=== PATIENT | male | born 1980 | race Hispanic/Latino ===

== ENCOUNTER 2016-11-29 03:07 | Inpatient (IN) | payer OTHER ==
[2016-11-29] MEDS ORDERED: Iohexol 240 (50 ml) PO ONE (03:31)
[2016-11-29] MEDS ORDERED: Iohexol 240 (50 ml) ONE (03:32)
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
[2016-11-29 05:02] LABS: BASO % 0.3 % (0.0-2.0); EOS % 0.1 % (0.0-4.0); HEMATOCRIT 44.1 % (35.0-51.0); LYMPH # 3.8 K/uL (1.0-4.3); LYMPH % 25.1 % (20.0-40.0); MEAN CELL VOLUME 93.3 fl (80.0-94.0); MEAN CORPUSCULAR HEMOGLOBIN 31.9 pg (27.0-31.0); MEAN CORPUSCULAR HGB CONC 34.2 g/dL (33.0-37.0); MEAN PLATELET VOLUME 7.3 fl (7.2-11.7); MONO # 2.3 K/uL (0.0-0.8); NEUT # 9.1 K/uL (1.8-7.0); NEUT % 59.5 % (50.0-75.0); NRBC % 0.1 % (0.0-0.0); RED CELL DISTRIBUTION WIDTH 14.4 % (11.5-14.5); WHITE BLOOD COUNT 15.3 K/uL (4.8-10.8)
[2016-11-29 05:06] LABS: ALB/GLOB RATIO 1.2 (1.0-2.1); ALCOHOL SERUM 203 mg/dl (0-10); ALKALINE PHOSPHATASE 90 U/L (38-126); ALT/SGPT 187 U/L (21-72); AST/SGOT 190 U/L (17-59); BILIRUBIN,TOTAL 1.3 mg/dl (0.2-1.3); BLOOD UREA NITROGEN 18 mg/dl (9-20); CALCIUM 9.4 mg/dL (8.4-10.2); CARBON DIOXIDE 26 mmol/L (22-30); CHLORIDE 93 mmol/L (98-107); GFR AFRICAN-AMERICAN > 60; GLUCOSE,RANDOM 128 mg/dL (75-110); POTASSIUM 3.6 MMOL/L (3.6-5.0); SODIUM 136 mmol/l (132-148); TOTAL PROTEIN 8.3 G/DL (6.3-8.2)
[2016-11-29] MEDS ORDERED: Sodium Chloride 0.9% 50 ML IV ONE (05:18)
[2016-11-29] MEDS ORDERED: Iohexol 300 100 ML IJ ONE (05:18)
[2016-11-29 05:34] LABS: LIPASE 11324 U/L (23-300)
[2016-11-29] MEDS ORDERED: Lactated Ringer's 2,000 ML IV SCH ×2 (05:45)
[2016-11-29] MEDS ORDERED: HYDROmorphone 0.5 mg/0.5 ml ISec ONE (05:46)
--- NOTE | 2016-11-29 09:50 | CT ---
PROCEDURE: CT Abdomen and Pelvis with contrast HISTORY: abd pain COMPARISON: None. TECHNIQUE: Contrast dose: 100 cc of Omnipaque 300 Radiation dose: Total exam DLP = 1006 mGy-cm. This CT exam was performed using one or more of the following dose reduction techniques: Automated exposure control, adjustment of the mA and/or kV according to patient size, and/or use of iterative reconstruction technique. FINDINGS: LOWER THORAX: Small subcarinal lymph nodes.. LIVER: Diffuse fatty infiltration of the liver. GALLBLADDER AND BILE DUCTS: Unremarkable. PANCREAS: There is diffuse peripancreatic fluid and hypertrophy consistent with acute pancreatitis with fluid tracking along both pericolic gutters. There is questionable pancreatic necrosis of the head. SPLEEN: Unremarkable. ADRENALS: Unremarkable. No mass. KIDNEYS AND URETERS: Unremarkable. No hydronephrosis. No solid mass. VASCULATURE: Unremarkable. No aortic aneurysm. BOWEL: Unremarkable. No obstruction. No gross mural thickening. APPENDIX: Normal appendix. PERITONEUM: Unremarkable. No free fluid. No free air. LYMPH NODES: Unremarkable. No enlarged lymph nodes. BLADDER: Unremarkable. REPRODUCTIVE: Unremarkable. BONES: No acute fracture. OTHER FINDINGS: None. IMPRESSION: Findings consistent with acute pancreatitis. Possible underlying pancreatic necrosis in the head.
--- NOTE | 2016-11-29 12:23 | CP.PCM.CON ---
History of Present Illness - History of Present Illness History of Present Illness: 36 yo man w/ chronic lower back pain is admitted for acute pancreatitis. Patient is known to me from previous hospitalization, he normally sees a paintings conservator in [facility] and receives Dilaudid 4mg about 4 tablets per day. He developed abdominal pain after a weekend of drinking with friends. This is his first episode of pancreatitis. The pain is sharp, constant and in the jennifer-umbilical region. Since admission, he had been on Dilaudid IV. The most recent dosage was 2mg q4h prn, but the medication wears off before 4 hours. Past Patient History - Infectious Disease Hx of Infectious Diseases: None - Past Medical History & Family History Past Medical History?: Yes - Past Social History Smoking Status: Former Smoker - CARDIAC Hx Cardiac Disorders: Yes Hx Hypertension: Yes - PULMONARY Hx Respiratory Disorders: No - NEUROLOGICAL Hx Neurological Disorder: No - HEENT Hx HEENT Problems: No - RENAL Hx Chronic Kidney Disease: No - ENDOCRINE/METABOLIC Hx Endocrine Disorders: No - HEMATOLOGICAL/ONCOLOGICAL Hx Blood Disorders: No Hx Human Immunodeficiency Virus (HIV): No - INTEGUMENTARY Hx Dermatological Problems: No - MUSCULOSKELETAL/RHEUMATOLOGICAL Hx Arthritis: Yes Hx Back Pain: Yes Hx Falls: No Hx Herniated Disk: Yes Other/Comment: left great toe fx - GASTROINTESTINAL Hx Gastrointestinal Disorders: No - GENITOURINARY/GYNECOLOGICAL Hx Genitourinary Disorders: No - PSYCHIATRIC Hx Psychophysiologic Disorder: No Hx Substance Use: No - SURGICAL HISTORY Hx Surgeries: No - ANESTHESIA Hx Anesthesia: No Hx Anesthesia Reactions: No Hx Malignant Hyperthermia: No Meds Allergies/Adverse Reactions: Allergies Allergy/AdvReac Type Severity Reaction Status Date / Time No Known Allergies Allergy Verified 11/16/16 03:40 - Medications Medications: Current Medications Hydromorphone HCl (Dilaudid) 2 mg IVP Q4 PRN PRN Reason: Pain, severe (8-10) Last Admin: 11/29/16 10:20 Dose: 2 mg Lactated Ringer's (Lactated Ringer's) 2,000 mls @ 500 mls/hr IV .Q4H GARY Last Admin: 11/29/16 06:04 Dose: 500 mls/hr Physical Exam - Cardiovascular Exam Cardiovascular Exam: REGULAR RHYTHM - GI/Abdominal Exam GI & Abdominal Exam: Soft, Tenderness Results - Vital Signs Recent Vital Signs: Last Vital Signs Temp 99.4 F 11/29/16 08:40 Pulse 111 H 11/29/16 08:40 Resp 20 11/29/16 08:40 BP 164/98 H 11/29/16 08:40 Pulse Ox 98 11/29/16 08:40 - Labs Result Diagrams: 11/29/16 04:56 11/29/16 04:56 Assessment & Plan (1) Pancreatitis Assessment and Plan: 36 yo man w/ chronic lower back pain on chronic opioids is admitted for pancreatitis. - f/u GI recommendation - increase Dilaudid to 2mg q3h PRN IV Status: Acute
[2016-11-29] MEDS: Lactated Ringer's 1,000 ML IV SCH ×2 (13:20→19:45)
--- NOTE | 2016-11-29 16:08 | CARD ---
APPROVED REPORT EKG Measurement Heart [id number] <Conclusion> Normal sinus rhythm Normal ECG
[2016-11-29] MEDS: Multiple Vitamins Oral Solution PO SCH (16:22)
--- NOTE | 2016-11-29 19:09 | CP.PCM.HP ---
History of Present Illness - History of Present Illness History of Present Illness: 36 yo with hx of Chronic Alcoholism Relapsing Pancreatitis Chronic opiod use for back pain admitted for Abdominal pain Present on Admission - Present on Admission Any Indicators Present on Admission: No Past Patient History - Infectious Disease Hx of Infectious Diseases: None - Past Medical History & Family History Past Medical History?: Yes - Past Social History Smoking Status: Former Smoker - CARDIAC Hx Cardiac Disorders: Yes Hx Hypertension: Yes - PULMONARY Hx Respiratory Disorders: No - NEUROLOGICAL Hx Neurological Disorder: No - HEENT Hx HEENT Problems: No - RENAL Hx Chronic Kidney Disease: No - ENDOCRINE/METABOLIC Hx Endocrine Disorders: No - HEMATOLOGICAL/ONCOLOGICAL Hx Blood Disorders: No Hx Human Immunodeficiency Virus (HIV): No - INTEGUMENTARY Hx Dermatological Problems: No - MUSCULOSKELETAL/RHEUMATOLOGICAL Hx Arthritis: Yes Hx Back Pain: Yes Hx Falls: No Hx Herniated Disk: Yes Other/Comment: left great toe fx - GASTROINTESTINAL Hx Gastrointestinal Disorders: No - GENITOURINARY/GYNECOLOGICAL Hx Genitourinary Disorders: No - PSYCHIATRIC Hx Psychophysiologic Disorder: No Hx Substance Use: No - SURGICAL HISTORY Hx Surgeries: No - ANESTHESIA Hx Anesthesia: No Hx Anesthesia Reactions: No Hx Malignant Hyperthermia: No Meds Allergies/Adverse Reactions: Allergies Allergy/AdvReac Type Severity Reaction Status Date / Time No Known Allergies Allergy Verified 11/16/16 03:40 Physical Exam - Respiratory Exam Respiratory Exam: NORMAL BREATHING PATTERN - Cardiovascular Exam Cardiovascular Exam: REGULAR RHYTHM - GI/Abdominal Exam GI & Abdominal Exam: Normal Bowel Sounds Results - Vital Signs Recent Vital Signs: Last Vital Signs Temp 98.7 F 11/29/16 16:27 Pulse 108 H 11/29/16 16:27 Resp 20 11/29/16 16:27 BP 164/98 H 11/29/16 08:40 Pulse Ox 94 L 11/29/16 16:27 - Labs Result Diagrams: 11/29/16 04:56 11/29/16 04:56 Labs: Laboratory Results - last 24 hr 11/29/16 12:17 Urine Opiates Screen Positive H Urine Methadone Screen Negative Ur Barbiturates Screen Negative Ur Phencyclidine Scrn Negative Ur Amphetamines Screen Negative U Benzodiazepines Scrn Negative U Oth Cocaine Metabols Negative U Cannabinoids Screen Negative Assessment & Plan - Assessment and Plan (Free Text) Assessment: Chronic Relapsing Pancreatitis CT scan mass?? IVF GI consult Alcoholic withdrawal Librium Thiamine Folic acid Seizure precautions Psychiatry Chronic opiod use/ back pain Pain management - Date & Time Date: 11/29/16 Time: 22:22
[2016-11-30 07:12] LABS: ALB/GLOB RATIO 1.2 (1.0-2.1); ALKALINE PHOSPHATASE 78 U/L (38-126); ALT/SGPT 255 U/L (21-72); AST/SGOT 318 U/L (17-59); BILIRUBIN,TOTAL 7.1 mg/dl (0.2-1.3); BLOOD UREA NITROGEN 16 mg/dl (9-20); CALCIUM 8.3 mg/dL (8.4-10.2); CARBON DIOXIDE 25 mmol/L (22-30); CHLORIDE 96 mmol/L (98-107); GFR AFRICAN-AMERICAN > 60; GLUCOSE,RANDOM 125 mg/dL (75-110); POTASSIUM 3.4 MMOL/L (3.6-5.0); SODIUM 133 mmol/l (132-148); TOTAL PROTEIN 7.3 G/DL (6.3-8.2)
[2016-11-30] MEDS: Multiple Vitamins Oral Solution PO SCH (09:00)
[2016-11-30] MEDS: Lactated Ringer's 1,000 ML IV SCH ×2 (12:20→21:15)
[2016-11-30 19:47] LABS: HEMATOCRIT 46.3 % (35.0-51.0); LYMPH # 1.6 K/uL (1.0-4.3); LYMPH % 9.8 % (20.0-40.0); MEAN CELL VOLUME 93.2 fl (80.0-94.0); MEAN CORPUSCULAR HEMOGLOBIN 31.2 pg (27.0-31.0); MEAN CORPUSCULAR HGB CONC 33.5 g/dL (33.0-37.0); MEAN PLATELET VOLUME 8.3 fl (7.2-11.7); MONO # 1.5 K/uL (0.0-0.8); MONO % 9.4 % (0.0-10.0); NEUT % 80.8 % (50.0-75.0); NRBC % 0.1 % (0.0-0.0); PLATELET COUNT 126 K/uL (130-400); RED CELL DISTRIBUTION WIDTH 14.7 % (11.5-14.5); WHITE BLOOD COUNT 16.1 K/uL (4.8-10.8)
--- NOTE | 2016-11-30 20:51 | CP.PCM.PN ---
Subjective - Date & Time of Evaluation Date of Evaluation: 11/30/16 Time of Evaluation: 22:22 - Subjective Subjective: Less tremors Objective - Vital Signs/Intake and Output Vital Signs (last 24 hours): Temp Pulse Resp BP Pulse Ox 98.7 F 99 H 20 142/95 H 96 11/30/16 19:49 11/30/16 19:49 11/30/16 19:49 11/30/16 19:49 11/30/16 19:49 - Medications Medications: Current Medications Amlodipine Besylate (Norvasc) 10 mg PO DAILY [facility] Last Admin: 11/29/16 13:18 Dose: 10 mg Chlordiazepoxide (Librium) 25 mg PO Q6 [facility] Last Admin: 11/29/16 22:16 Dose: 25 mg Folic Acid (Folic Acid) 1 mg PO DAILY [facility] Last Admin: 11/30/16 08:49 Dose: 1 mg Hydromorphone HCl (Dilaudid) 2 mg IVP Q3 PRN PRN Reason: Pain, severe (8-10) Last Admin: 11/29/16 22:03 Dose: 2 mg Lactated Ringer's (Lactated Ringer's) 1,000 mls @ 150 mls/hr IV .Q6H40M [facility] Last Admin: 11/29/16 19:45 Dose: Not Given Lisinopril (Zestril) 5 mg PO DAILY [facility] Last Admin: 11/29/16 16:22 Dose: 5 mg Multivitamins/Vitamin C (Multi-Delyn Liquid) 5 ml PO DAILY [facility] Last Admin: 11/29/16 16:22 Dose: 5 ml Thiamine HCl (Vitamin B1 Tab) 100 mg PO DAILY [facility] - Respiratory Exam Respiratory Exam: NORMAL BREATHING PATTERN - Cardiovascular Exam Cardiovascular Exam: REGULAR RHYTHM - GI/Abdominal Exam GI & Abdominal Exam: Normal Bowel Sounds Assessment and Plan - Assessment and Plan (Free Text) Assessment: Chronic Relapsing Pancreatitis CT scan mass?? IVF GI consult Alcoholic withdrawal Librium Thiamine Folic acid Seizure precautions Psychiatry Chronic opiod use/ back pain Pain management
--- NOTE | 2016-11-30 21:59 | CP.PCM.CON ---
History of Present Illness - History of Present Illness History of Present Illness: 36 yo male with h/o back pain requiring pqin management admitted with sudden onset intense abdominal pain. Patient had been drinking about 5 drinks of alcohol a day over the weekend. Review of Systems - Constitutional Constitutional: absent: Chills - EENT Eyes: absent: Blurred Vision Ears: absent: Decreased Hearing Nose/Mouth/Throat: absent: Epistaxis - Cardiovascular Cardiovascular: absent: Chest Pain - Respiratory Respiratory: absent: Dyspnea - Gastrointestinal Gastrointestinal: As Per HPI Past Patient History - Infectious Disease Hx of Infectious Diseases: None - Past Medical History & Family History Past Medical History?: Yes - Past Social History Smoking Status: Former Smoker - CARDIAC Hx Cardiac Disorders: Yes Hx Hypertension: Yes - PULMONARY Hx Respiratory Disorders: No - NEUROLOGICAL Hx Neurological Disorder: No - HEENT Hx HEENT Problems: No - RENAL Hx Chronic Kidney Disease: No - ENDOCRINE/METABOLIC Hx Endocrine Disorders: No - HEMATOLOGICAL/ONCOLOGICAL Hx Blood Disorders: No Hx Human Immunodeficiency Virus (HIV): No - INTEGUMENTARY Hx Dermatological Problems: No - MUSCULOSKELETAL/RHEUMATOLOGICAL Hx Arthritis: Yes Hx Back Pain: Yes Hx Falls: No Hx Herniated Disk: Yes Other/Comment: left great toe fx - GASTROINTESTINAL Hx Gastrointestinal Disorders: No - GENITOURINARY/GYNECOLOGICAL Hx Genitourinary Disorders: No - PSYCHIATRIC Hx Psychophysiologic Disorder: No Hx Substance Use: No - SURGICAL HISTORY Hx Surgeries: No - ANESTHESIA Hx Anesthesia: No Hx Anesthesia Reactions: No Hx Malignant Hyperthermia: No Meds Allergies/Adverse Reactions: Allergies Allergy/AdvReac Type Severity Reaction Status Date / Time No Known Allergies Allergy Verified 11/16/16 03:40 - Medications Medications: Current Medications Amlodipine Besylate (Norvasc) 10 mg PO DAILY [facility] Last Admin: 11/30/16 08:49 Dose: 10 mg Chlordiazepoxide (Librium) 25 mg PO Q6 [facility] Last Admin: 11/30/16 21:43 Dose: 25 mg Folic Acid (Folic Acid) 1 mg PO DAILY [facility] Last Admin: 11/30/16 08:49 Dose: 1 mg Hydromorphone HCl (Dilaudid 0.2 Mg/Ml Optics Technical Officer) 0 mg IV PRN PRN; Protocol PRN Reason: Pain, severe (8-10) Last Admin: 11/30/16 21:24 Dose: 6 mg Lactated Ringer's (Lactated Ringer's) 1,000 mls @ 150 mls/hr IV .Q6H40M [facility] Last Admin: 11/30/16 21:15 Dose: 150 mls/hr Lisinopril (Zestril) 5 mg PO DAILY [facility] Last Admin: 11/29/16 16:22 Dose: 5 mg Multivitamins/Vitamin C (Multi-Delyn Liquid) 5 ml PO DAILY [facility] Last Admin: 11/30/16 09:00 Dose: Not Given Thiamine HCl (Vitamin B1 Tab) 100 mg PO DAILY [facility] Physical Exam - Constitutional Appears: In Acute Distress - Head Exam Head Exam: NORMAL INSPECTION - Eye Exam Eye Exam: Normal appearance Pupil Exam: PERRL - ENT Exam ENT Exam: Mucous Membranes Moist - Neck Exam Neck exam: Positive for: Full Rom - Respiratory Exam Respiratory Exam: Clear to Auscultation Bilateral - Cardiovascular Exam Cardiovascular Exam: Tachycardia, REGULAR RHYTHM, +S1, +S2 - GI/Abdominal Exam GI & Abdominal Exam: Diminished Bowel Sounds, Distended Results - Vital Signs Recent Vital Signs: Last Vital Signs Temp 98.7 F 11/30/16 19:49 Pulse 99 H 11/30/16 19:49 Resp 20 11/30/16 19:49 BP 142/95 H 11/30/16 19:49 Pulse Ox 96 11/30/16 19:49 - Labs Result Diagrams: 11/29/16 04:56 11/30/16 04:00 Labs: Laboratory Results - last 24 hr 11/30/16 04:00 Sodium 133 Potassium 3.4 L Chloride 96 L Carbon Dioxide 25 Anion Gap 15 BUN 16 Creatinine 0.7 L Est GFR ( Amer) > 60 Est GFR (Non-Af Amer) > 60 Random Glucose 125 H Calcium 8.3 L Total Bilirubin 7.1 H AST 318 H D ALT 255 H D Alkaline Phosphatase 78 Total Protein 7.3 Albumin 3.9 Globulin 3.4 Albumin/Globulin Ratio 1.2 Assessment & Plan (1) Pancreatitis Assessment and Plan: Patient with pancreatitis due to alcohol. IV fluids and adequate analgesia. Follow labs and clinically. Status: Acute
--- NOTE | 2016-11-30 22:11 | CP.PCM.PN ---
Subjective - Date & Time of Evaluation Date of Evaluation: 11/30/16 Time of Evaluation: 15:00 - Subjective Subjective: Patient still in pain but he states it is slightly better today.On IV dilaudid Objective - Vital Signs/Intake and Output Vital Signs (last 24 hours): Temp Pulse Resp BP Pulse Ox 98.7 F 99 H 20 142/95 H 96 11/30/16 19:49 11/30/16 19:49 11/30/16 19:49 11/30/16 19:49 11/30/16 19:49 - Medications Medications: Current Medications Amlodipine Besylate (Norvasc) 10 mg PO DAILY [facility] Last Admin: 11/30/16 08:49 Dose: 10 mg Chlordiazepoxide (Librium) 25 mg PO Q6 [facility] Last Admin: 11/30/16 21:43 Dose: 25 mg Folic Acid (Folic Acid) 1 mg PO DAILY [facility] Last Admin: 11/30/16 08:49 Dose: 1 mg Hydromorphone HCl (Dilaudid 0.2 Mg/Ml Investment Representative) 0 mg IV PRN PRN; Protocol PRN Reason: Pain, severe (8-10) Last Admin: 11/30/16 21:24 Dose: 6 mg Lactated Ringer's (Lactated Ringer's) 1,000 mls @ 150 mls/hr IV .Q6H40M [facility] Last Admin: 11/30/16 21:15 Dose: 150 mls/hr Lisinopril (Zestril) 5 mg PO DAILY [facility] Last Admin: 11/29/16 16:22 Dose: 5 mg Multivitamins/Vitamin C (Multi-Delyn Liquid) 5 ml PO DAILY [facility] Last Admin: 11/30/16 09:00 Dose: Not Given Thiamine HCl (Vitamin B1 Tab) 100 mg PO DAILY [facility] - Labs Labs: 11/30/16 04:00 - Head Exam Head Exam: ATRAUMATIC - Eye Exam Eye Exam: Normal appearance - ENT Exam ENT Exam: Mucous Membranes Moist - Respiratory Exam Respiratory Exam: Clear to Ausculation Bilateral - Cardiovascular Exam Cardiovascular Exam: REGULAR RHYTHM - GI/Abdominal Exam GI & Abdominal Exam: Distended, Soft, Tenderness, Diminished Bowel Sounds Assessment and Plan (1) Pancreatitis Assessment & Plan: No fever though he is tachycardic . Bili is up but other LFTs are normal. Continue IV fluids and analgesia. Follow labs. Maintain NPO. Status: Acute
[2016-12-01] MEDS: Lactated Ringer's 1,000 ML IV SCH ×2 (04:25→11:30)
[2016-12-01] MEDS: Multiple Vitamins Oral Solution PO SCH (09:37)
[2016-12-01 11:01] LABS: URINE BILIRUBIN NEGATIVE (NEGATIVE); URINE COLOR STRAW (YELLOW); URINE GLUCOSE (UA) NEGATIVE (Normal); URINE KETONE 20 mg/dL (NEGATIVE)
[2016-12-01 11:02] LABS: URINE BLOOD SMALL (NEGATIVE); URINE LEUKOCYTE ESTERASE NEGATIVE Leu/uL (Negative); URINE PROTEIN 100 mg/dL (NEGATIVE); WBC URINE 2 /hpf (0-5)
[2016-12-01 12:45] LABS: HEMATOCRIT 36.5 % (35.0-51.0); MEAN CELL VOLUME 92.7 fl (80.0-94.0); MEAN CORPUSCULAR HEMOGLOBIN 32.3 pg (27.0-31.0); MEAN CORPUSCULAR HGB CONC 34.8 g/dL (33.0-37.0); RED CELL DISTRIBUTION WIDTH 14.5 % (11.5-14.5); WHITE BLOOD COUNT 10.8 K/uL (4.8-10.8)
[2016-12-01 13:09] LABS: ALB/GLOB RATIO 1.1 (1.0-2.1); ALKALINE PHOSPHATASE 71 U/L (38-126); ALT/SGPT 127 U/L (21-72); AMYLASE 263 U/L (30-110); AST/SGOT 103 U/L (17-59); BILIRUBIN,TOTAL 3.1 mg/dl (0.2-1.3); BLOOD UREA NITROGEN 17 mg/dl (9-20); CALCIUM 8.1 mg/dL (8.4-10.2); CARBON DIOXIDE 27 mmol/L (22-30); CHLORIDE 94 mmol/L (98-107); GFR AFRICAN-AMERICAN > 60; GLUCOSE,RANDOM 94 mg/dL (75-110); LIPASE 1012 U/L (23-300); POTASSIUM 3.5 MMOL/L (3.6-5.0); SODIUM 133 mmol/l (132-148); TOTAL PROTEIN 7.1 G/DL (6.3-8.2)
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
--- NOTE | 2016-12-01 13:43 | CP.PCM.PN ---
Subjective - Date & Time of Evaluation Date of Evaluation: 12/01/16 Time of Evaluation: 13:00 - Subjective Subjective: 36 yo man w/ chronic pain admitted for pancreatitis. 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 Since then he has required about 6mg of Dilaudid every 4 hours. He denies side effects from that regimen. Enzymes has been trending down. His abdominal pain is still present, but slightly better compared to before. Objective - Vital Signs/Intake and Output Vital Signs (last 24 hours): Temp Pulse Resp BP Pulse Ox 97.8 F 100 H 18 129/83 94 L 12/01/16 12:00 12/01/16 12:00 12/01/16 12:00 12/01/16 12:00 12/01/16 12:00 - Medications Medications: Current Medications Amlodipine Besylate (Norvasc) 10 mg PO DAILY [facility] Last Admin: 12/01/16 09:38 Dose: 10 mg Chlordiazepoxide (Librium) 25 mg PO Q6 [facility] Last Admin: 12/01/16 09:44 Dose: 25 mg Folic Acid (Folic Acid) 1 mg PO DAILY [facility] Last Admin: 12/01/16 09:37 Dose: 1 mg Hydromorphone HCl (Dilaudid 0.2 Mg/Ml Order Entry Clerk) 0 mg IV PRN PRN; Protocol PRN Reason: Pain, severe (8-10) Last Admin: 12/01/16 11:14 Dose: 6 mg Lactated Ringer's (Lactated Ringer's) 1,000 mls @ 150 mls/hr IV .Q6H40M [facility] Last Admin: 12/01/16 04:25 Dose: 150 mls/hr Lisinopril (Zestril) 5 mg PO DAILY [facility] Last Admin: 12/01/16 09:37 Dose: 5 mg Multivitamins/Vitamin C (Multi-Delyn Liquid) 5 ml PO DAILY [facility] Last Admin: 12/01/16 09:37 Dose: 5 ml Thiamine HCl (Vitamin B1 Tab) 100 mg PO DAILY [facility] Last Admin: 12/01/16 09:37 Dose: 100 mg - Labs Labs: 12/01/16 12:35 12/01/16 12:35 - Respiratory Exam Respiratory Exam: NORMAL BREATHING PATTERN - Cardiovascular Exam Cardiovascular Exam: REGULAR RHYTHM - GI/Abdominal Exam GI & Abdominal Exam: Tenderness Assessment and Plan (1) Pancreatitis Assessment & Plan: 36 yo man w/ pancreatitis 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 - continue Dilaudid COMPENSATION CONSULTING MANAGER for one more day, will wean down - can switch to Dilaudid 2mg IV q3h PRN tomorrow, patient was told of the pending change - patient to go home to own medication of Dilaudid 4mg PO Status: Acute
[2016-12-01 15:13] LABS: BASOPHIL 1 % (0-2); METAMYELOCYTE 1 % (0-0); NEUTROPHIL 81 % (42-75)
[2016-12-01 15:14] LABS: LARGE PLATELETS PRESENT
[2016-12-01 15:56] LABS: TOTAL CELLS COUNTED 100
--- NOTE | 2016-12-01 18:23 | CP.PCM.PN ---
Subjective - Date & Time of Evaluation Date of Evaluation: 12/01/16 Time of Evaluation: 22:22 - Subjective Subjective: Tremors decreased Enzymes improving Objective - Vital Signs/Intake and Output Vital Signs (last 24 hours): Temp Pulse Resp BP Pulse Ox 97.8 F 100 H 18 129/83 94 L 12/01/16 12:00 12/01/16 12:00 12/01/16 12:00 12/01/16 12:00 12/01/16 12:00 - Medications Medications: Current Medications Amlodipine Besylate (Norvasc) 10 mg PO DAILY [facility] Last Admin: 12/01/16 09:38 Dose: 10 mg Chlordiazepoxide (Librium) 25 mg PO Q6 [facility] Last Admin: 12/01/16 17:32 Dose: 25 mg Folic Acid (Folic Acid) 1 mg PO DAILY [facility] Last Admin: 12/01/16 09:37 Dose: 1 mg Hydromorphone HCl (Dilaudid 0.2 Mg/Ml [employer] Dealer) 0 mg IV PRN PRN; Protocol PRN Reason: Pain, severe (8-10) Last Admin: 12/01/16 17:27 Dose: 6 mg Lactated Ringer's (Lactated Ringer's) 1,000 mls @ 150 mls/hr IV .Q6H40M [facility] Last Admin: 12/01/16 11:30 Dose: 150 mls/hr Lisinopril (Zestril) 5 mg PO DAILY [facility] Last Admin: 12/01/16 09:37 Dose: 5 mg Multivitamins/Vitamin C (Multi-Delyn Liquid) 5 ml PO DAILY [facility] Last Admin: 12/01/16 09:37 Dose: 5 ml Thiamine HCl (Vitamin B1 Tab) 100 mg PO DAILY [facility] Last Admin: 12/01/16 09:37 Dose: 100 mg - Labs Labs: 12/01/16 12:35 12/01/16 12:35 - Respiratory Exam Respiratory Exam: NORMAL BREATHING PATTERN - Cardiovascular Exam Cardiovascular Exam: REGULAR RHYTHM - GI/Abdominal Exam GI & Abdominal Exam: Normal Bowel Sounds Assessment and Plan - Assessment and Plan (Free Text) Assessment: Chronic Relapsing Pancreatitis CT scan mass?? IVF GI consult Alcoholic withdrawal Librium Thiamine Folic acid Seizure precautions Psychiatry Chronic opiod use/ back pain Pain management
[2016-12-01 22:42] LABS: URINE BILIRUBIN NEGATIVE (NEGATIVE); URINE BLOOD NEGATIVE (NEGATIVE); URINE COLOR AMBER (YELLOW); URINE GLUCOSE (UA) NEG (Normal); URINE KETONE 20 mg/dL (NEGATIVE); URINE LEUKOCYTE ESTERASE NEG Leu/uL (Negative); URINE PROTEIN 100 mg/dL (NEGATIVE); URINE UROBILINOGEN 0.2-1.0 mg/dL (0.2-1.0); WBC URINE 1 /hpf (0-5)
[2016-12-02] MEDS: Piperacillin/Tazobact 3.375 GM in Sodium Chloride 0.9% 100 ML IVPB SCH ×3 (00:45→16:55)
[2016-12-02] MEDS: Lactated Ringer's 1,000 ML IV SCH ×3 (01:00→20:02)
[2016-12-02 08:50] LABS: HEMATOCRIT 36.8 % (35.0-51.0); MEAN CELL VOLUME 94.4 fl (80.0-94.0); MEAN CORPUSCULAR HEMOGLOBIN 32.1 pg (27.0-31.0); RED CELL DISTRIBUTION WIDTH 14.2 % (11.5-14.5); WHITE BLOOD COUNT 12.1 K/uL (4.8-10.8)
[2016-12-02] MEDS: Multiple Vitamins Oral Solution PO SCH ×2 (09:31→09:34)
--- NOTE | 2016-12-02 15:14 | CT ---
PROCEDURE: CT Abdomen and Pelvis without Oral or IV contrast. HISTORY: Abdominal distention COMPARISON: CT abdomen and pelvis with contrast performed 11/29/16 TECHNIQUE: Contiguous axial images of the abdomen and pelvis. No IV contrast administered. Coronal and Sagittal reformats generated and reviewed. Radiation dose: Total exam DLP = 1200.49 mGy-cm. This CT exam was performed using one or more of the following dose reduction techniques: Automated exposure control, adjustment of the mA and/or kV according to patient size, and/or use of iterative reconstruction technique. FINDINGS: There is limited evaluation of the solid organs without the administration of IV contrast. LOWER THORAX: Small bilateral pleural effusions and associated compressive consolidation. Pneumonia is not excluded. Small hiatal hernia/distal esophageal wall thickening. LIVER: Hepatic steatosis. Hypoattenuation of the liver compatible with hepatic steatosis. GALLBLADDER AND BILE DUCTS: Unremarkable unenhanced appearance. PANCREAS: Pancreatic prominence, likely edematous pancreas. Peripancreatic fluid. SPLEEN: Splenomegaly. ADRENALS: Unremarkable unenhanced appearance. KIDNEYS AND URETERS: No hydronephrosis or obstructing renal calculus. BLADDER: The urinary bladder appears unremarkable. REPRODUCTIVE: Unremarkable. APPENDIX: Visualized portions of the appendix appear within normal limits of caliber. BOWEL: The stomach is nondistended. Lack of oral contrast limits evaluation for bowel pathology. The bowel loops appear within normal limits of caliber without evidence of intestinal obstruction. Duodenal wall thickening; suspect infectious/inflammatory etiologies. PERITONEUM: Small abdominal and pelvic free fluid. No definite free air. LYMPH NODES: Sub cm prominent mesenteric and retroperitoneal lymph nodes, nonspecific. VASCULATURE: No aortic aneurysm. BONES: Degenerative changes. Schmorl's node, superior endplate our 5 OTHER FINDINGS: Tiny fat containing umbilical hernia. IMPRESSION: Pancreatic prominence, likely edematous pancreas. Peripancreatic fluid. Appearance compatible with acute pancreatitis. Hepatomegaly. Hepatic steatosis. Splenomegaly. Duodenal wall thickening; suspect infectious/inflammatory etiologies. Correlate clinically. Sub cm prominent mesenteric and retroperitoneal lymph nodes, nonspecific. Small bilateral pleural effusions and associated compressive consolidation. Pneumonia is not excluded. Small hiatal hernia/distal esophageal wall thickening. Additional findings as above.
--- NOTE | 2016-12-02 20:55 | CP.PCM.PN ---
Subjective - Date & Time of Evaluation Date of Evaluation: 12/02/16 Time of Evaluation: 22:22 - Subjective Subjective: Low grade temp? Objective - Vital Signs/Intake and Output Vital Signs (last 24 hours): Temp Pulse Resp BP Pulse Ox 100.5 F H 98 H 16 130/83 94 L 12/02/16 20:08 12/02/16 20:05 12/02/16 20:05 12/02/16 20:05 12/02/16 20:05 - Medications Medications: Current Medications Acetaminophen (Tylenol 325mg Tab) 650 mg PO Q6 PRN PRN Reason: Fever >100.4 F Last Admin: 12/02/16 20:08 Dose: 650 mg Amlodipine Besylate (Norvasc) 10 mg PO DAILY [facility] Last Admin: 12/02/16 09:30 Dose: 10 mg Chlordiazepoxide (Librium) 25 mg PO Q6 [facility] Last Admin: 12/02/16 16:55 Dose: 25 mg Folic Acid (Folic Acid) 1 mg PO DAILY [facility] Last Admin: 12/02/16 09:31 Dose: 1 mg Hydromorphone HCl (Dilaudid) 2 mg IVP Q3 PRN PRN Reason: severe pain 8-10 Last Admin: 12/02/16 20:00 Dose: 2 mg Lactated Ringer's (Lactated Ringer's) 1,000 mls @ 150 mls/hr IV .Q6H40M [facility] Last Admin: 12/02/16 20:02 Dose: 150 mls/hr Piperacillin Sod/Tazobactam (Sod 3.375 gm/ Sodium Chloride) 100 mls @ 100 mls/ hr IVPB Q8 [facility] Last Admin: 12/02/16 16:55 Dose: 100 mls/hr Lisinopril (Zestril) 5 mg PO DAILY [facility] Last Admin: 12/02/16 09:30 Dose: 5 mg Multivitamins/Vitamin C (Multi-Delyn Liquid) 5 ml PO DAILY [facility] Last Admin: 12/02/16 09:34 Dose: Not Given Thiamine HCl (Vitamin B1 Tab) 100 mg PO DAILY [facility] Last Admin: 12/02/16 09:30 Dose: 100 mg - Labs Labs: 12/02/16 08:30 12/01/16 12:35 - Respiratory Exam Respiratory Exam: NORMAL BREATHING PATTERN - Cardiovascular Exam Cardiovascular Exam: REGULAR RHYTHM - GI/Abdominal Exam GI & Abdominal Exam: Normal Bowel Sounds Assessment and Plan - Assessment and Plan (Free Text) Assessment: Low grade temp? Blood cs IV ABX ID consult Chronic Relapsing Pancreatitis CT scan mass?? IVF GI consult Alcoholic withdrawal Librium Thiamine Folic acid Seizure precautions Psychiatry Chronic opiod use/ back pain Pain management
--- NOTE | 2016-12-03 00:37 | CP.PCM.PN ---
Subjective - Date & Time of Evaluation Date of Evaluation: 12/02/16 Time of Evaluation: 23:30 - Subjective Subjective: Patient with pain but bearable Objective - Vital Signs/Intake and Output Vital Signs (last 24 hours): Temp Pulse Resp BP Pulse Ox 99.8 F H 84 20 136/77 97 12/02/16 23:45 12/02/16 23:45 12/02/16 23:45 12/02/16 23:45 12/02/16 23:45 - Medications Medications: Current Medications Acetaminophen (Tylenol 325mg Tab) 650 mg PO Q6 PRN PRN Reason: Fever >100.4 F Last Admin: 12/02/16 20:08 Dose: 650 mg Amlodipine Besylate (Norvasc) 10 mg PO DAILY [facility] Last Admin: 12/02/16 09:30 Dose: 10 mg Chlordiazepoxide (Librium) 25 mg PO Q6 [facility] Last Admin: 12/02/16 23:01 Dose: 25 mg Folic Acid (Folic Acid) 1 mg PO DAILY [facility] Last Admin: 12/02/16 09:31 Dose: 1 mg Hydromorphone HCl (Dilaudid) 2 mg IVP Q3 PRN PRN Reason: severe pain 8-10 Last Admin: 12/02/16 23:01 Dose: 2 mg Lactated Ringer's (Lactated Ringer's) 1,000 mls @ 150 mls/hr IV .Q6H40M [facility] Last Admin: 12/02/16 20:02 Dose: 150 mls/hr Piperacillin Sod/Tazobactam (Sod 3.375 gm/ Sodium Chloride) 100 mls @ 100 mls/ hr IVPB Q8 [facility] Last Admin: 12/02/16 16:55 Dose: 100 mls/hr Lisinopril (Zestril) 5 mg PO DAILY [facility] Last Admin: 12/02/16 09:30 Dose: 5 mg Multivitamins/Vitamin C (Multi-Delyn Liquid) 5 ml PO DAILY [facility] Last Admin: 12/02/16 09:34 Dose: Not Given Thiamine HCl (Vitamin B1 Tab) 100 mg PO DAILY [facility] Last Admin: 12/02/16 09:30 Dose: 100 mg - Labs Labs: 12/02/16 08:30 12/01/16 12:35 - Head Exam Head Exam: ATRAUMATIC - Eye Exam Eye Exam: Normal appearance - ENT Exam ENT Exam: Mucous Membranes Moist - Respiratory Exam Respiratory Exam: Clear to Ausculation Bilateral - Cardiovascular Exam Cardiovascular Exam: REGULAR RHYTHM - GI/Abdominal Exam GI & Abdominal Exam: Distended, Firm, Tenderness, Normal Bowel Sounds Additional comments: Generalozed modrate tenderness, No guarding or rebound Assessment and Plan (1) Pancreatitis Assessment & Plan: Patient earlier with increased pain and distention following oral liquids. CT was done and no new findings were seen. On IV antibiotics since developing low grade fever. Maintain NPO and IV fluids. Follow for pain as well as labs. Status: Acute
[2016-12-03] MEDS: Piperacillin/Tazobact 3.375 GM in Sodium Chloride 0.9% 100 ML IVPB SCH ×3 (00:51→18:37)
[2016-12-03] MEDS: Lactated Ringer's 1,000 ML IV SCH ×4 (02:10→20:47)
[2016-12-03 09:02] LABS: BASO % 0.2 % (0.0-2.0); EOS % 0.3 % (0.0-4.0); HEMATOCRIT 34.2 % (35.0-51.0); LYMPH # 1.1 K/uL (1.0-4.3); LYMPH % 9.9 % (20.0-40.0); MEAN CELL VOLUME 93.3 fl (80.0-94.0); MEAN CORPUSCULAR HEMOGLOBIN 32.6 pg (27.0-31.0); MEAN PLATELET VOLUME 8.4 fl (7.2-11.7); MONO % 9.2 % (0.0-10.0); NEUT # 8.7 K/uL (1.8-7.0); NEUT % 80.4 % (50.0-75.0); RED CELL DISTRIBUTION WIDTH 13.8 % (11.5-14.5); WHITE BLOOD COUNT 10.9 K/uL (4.8-10.8)
[2016-12-03 09:09] LABS: ALKALINE PHOSPHATASE 72 U/L (38-126); ALT/SGPT 83 U/L (21-72); AMYLASE 59 U/L (30-110); AST/SGOT 57 U/L (17-59); BILIRUBIN,TOTAL 1.7 mg/dl (0.2-1.3); BLOOD UREA NITROGEN 7 mg/dl (9-20); CALCIUM 8.4 mg/dL (8.4-10.2); CARBON DIOXIDE 28 mmol/L (22-30); CHLORIDE 94 mmol/L (98-107); GFR AFRICAN-AMERICAN > 60; GLUCOSE,RANDOM 110 mg/dL (75-110); LIPASE 164 U/L (23-300); SODIUM 131 mmol/l (132-148); TOTAL PROTEIN 6.8 G/DL (6.3-8.2)
[2016-12-03 09:22] LABS: PLATELET COUNT 116 K/uL (130-400)
--- NOTE | 2016-12-03 09:48 | CP.PCM.PN ---
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 Patient currently comfortable in bed without any side effects of dilaudid noted. Stated that pain creeps up close to the 3 hour interval of his next dose. Objective - Vital Signs/Intake and Output Vital Signs (last 24 hours): Temp Pulse Resp BP Pulse Ox 99.8 F H 94 H 16 145/87 98 12/03/16 07:55 12/03/16 07:55 12/03/16 07:55 12/03/16 07:55 12/03/16 07:55 Intake and Output: 12/03/16 12/03/16 06:59 18:59 Intake Total 1800 Balance 1800 - Medications Medications: Current Medications Acetaminophen (Tylenol 325mg Tab) 650 mg PO Q6 PRN PRN Reason: Fever >100.4 F Last Admin: 12/02/16 20:08 Dose: 650 mg Amlodipine Besylate (Norvasc) 10 mg PO DAILY [facility] Last Admin: 12/02/16 09:30 Dose: 10 mg Chlordiazepoxide (Librium) 25 mg PO Q6 [facility] Last Admin: 12/03/16 05:02 Dose: 25 mg Folic Acid (Folic Acid) 1 mg PO DAILY [facility] Last Admin: 12/02/16 09:31 Dose: 1 mg Hydromorphone HCl (Dilaudid) 2.5 mg IVP Q3 PRN PRN Reason: severe pain 8-10 Lactated Ringer's (Lactated Ringer's) 1,000 mls @ 150 mls/hr IV .Q6H40M [facility] Last Admin: 12/03/16 05:08 Dose: 150 mls/hr Piperacillin Sod/Tazobactam (Sod 3.375 gm/ Sodium Chloride) 100 mls @ 100 mls/ hr IVPB Q8 [facility] Last Admin: 12/03/16 00:51 Dose: 100 mls/hr Lisinopril (Zestril) 5 mg PO DAILY [facility] Last Admin: 12/02/16 09:30 Dose: 5 mg Multivitamins/Vitamin C (Multi-Delyn Liquid) 5 ml PO DAILY [facility] Last Admin: 12/02/16 09:34 Dose: Not Given Thiamine HCl (Vitamin B1 Tab) 100 mg PO DAILY [facility] Last Admin: 12/02/16 09:30 Dose: 100 mg - Labs Labs: 12/03/16 07:30 12/03/16 07:30 Assessment and Plan - Assessment and Plan (Free Text) Assessment: 36 yo male with pancreatitis with history of chronic pain on high dose pain medication - narcotic tolerance. Plan: Will increase Dilaudid dose to 2.5m Q3h prn for now. Will notify Dr. Priets about the change and for follow up and possible modification of pain medication tomorrow.
[2016-12-03] MEDS: Multiple Vitamins Oral Solution PO SCH (09:52)
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
--- NOTE | 2016-12-03 14:35 | CP.PCM.PN ---
Subjective - Date & Time of Evaluation Date of Evaluation: 12/03/16 Time of Evaluation: 22:22 - Subjective Subjective: Still with low grade temp K+ low?? Objective - Vital Signs/Intake and Output Vital Signs (last 24 hours): Temp Pulse Resp BP Pulse Ox 98.3 F 94 H 16 143/81 98 12/03/16 13:02 12/03/16 12:05 12/03/16 12:05 12/03/16 12:05 12/03/16 12:05 Intake and Output: 12/03/16 12/03/16 06:59 18:59 Intake Total 1800 Balance 1800 - Medications Medications: Current Medications Acetaminophen (Tylenol 325mg Tab) 650 mg PO Q6 PRN PRN Reason: Fever >100.4 F Last Admin: 12/03/16 12:02 Dose: 650 mg Amlodipine Besylate (Norvasc) 10 mg PO DAILY [facility] Last Admin: 12/03/16 09:52 Dose: 10 mg Chlordiazepoxide (Librium) 25 mg PO Q6 [facility] Last Admin: 12/03/16 09:52 Dose: 25 mg Folic Acid (Folic Acid) 1 mg PO DAILY [facility] Last Admin: 12/03/16 09:51 Dose: 1 mg Hydromorphone HCl (Dilaudid) 2.5 mg IVP Q3 PRN PRN Reason: severe pain 8-10 Last Admin: 12/03/16 14:29 Dose: 2.5 mg Lactated Ringer's (Lactated Ringer's) 1,000 mls @ 150 mls/hr IV .Q6H40M [facility] Last Admin: 12/03/16 05:08 Dose: 150 mls/hr Piperacillin Sod/Tazobactam (Sod 3.375 gm/ Sodium Chloride) 100 mls @ 100 mls/ hr IVPB Q8 [facility] Last Admin: 12/03/16 09:53 Dose: 100 mls/hr Potassium Chloride (Potassium Cl 10meq/50ml Sterile Water) 50 mls @ 50 mls/hr IVPB Q1 [facility] Stop: 12/03/16 17:59 Lisinopril (Zestril) 5 mg PO DAILY [facility] Last Admin: 12/03/16 09:53 Dose: 5 mg Multivitamins/Vitamin C (Multi-Delyn Liquid) 5 ml PO DAILY [facility] Last Admin: 12/03/16 09:52 Dose: Not Given Thiamine HCl (Vitamin B1 Tab) 100 mg PO DAILY [facility] Last Admin: 12/03/16 09:53 Dose: 100 mg - Labs Labs: 12/03/16 07:30 12/03/16 07:30 - Respiratory Exam Respiratory Exam: NORMAL BREATHING PATTERN - Cardiovascular Exam Cardiovascular Exam: REGULAR RHYTHM - GI/Abdominal Exam GI & Abdominal Exam: Normal Bowel Sounds Assessment and Plan - Assessment and Plan (Free Text) Assessment: Low grade temp? Blood cs IV ABX ID consult Hypokalemia?? K+ suppl Urine lytes Nephrology consult Chronic Relapsing Pancreatitis CT scan mass?? IVF GI consult Alcoholic withdrawal Librium Thiamine Folic acid Seizure precautions Psychiatry Chronic opiod use/ back pain Pain management
[2016-12-03 15:56] LABS: NEUTROPHIL 85 % (42-75); TOTAL CELLS COUNTED 100
[2016-12-03 15:57] LABS: LARGE PLATELETS PRESENT
[2016-12-03] MEDS: Potassium CL 10 MEQ/50 ML 50 ML IVPB SCH ×3 (16:24→18:38)
--- NOTE | 2016-12-03 18:40 | CP.PCM.PN ---
Subjective - Date & Time of Evaluation Date of Evaluation: 12/03/16 Time of Evaluation: 18:33 - Subjective Subjective: Patient still with midabdominal pain. Controlled with meds. Objective - Vital Signs/Intake and Output Vital Signs (last 24 hours): Temp Pulse Resp BP Pulse Ox 99.0 F 88 16 126/74 95 12/03/16 15:50 12/03/16 15:50 12/03/16 15:50 12/03/16 15:50 12/03/16 15:50 Intake and Output: 12/03/16 12/03/16 06:59 18:59 Intake Total 1800 Balance 1800 - Medications Medications: Current Medications Acetaminophen (Tylenol 325mg Tab) 650 mg PO Q6 PRN PRN Reason: Fever >100.4 F Last Admin: 12/03/16 12:02 Dose: 650 mg Amlodipine Besylate (Norvasc) 10 mg PO DAILY [facility] Last Admin: 12/03/16 09:52 Dose: 10 mg Chlordiazepoxide (Librium) 25 mg PO Q6 [facility] Last Admin: 12/03/16 16:24 Dose: 25 mg Folic Acid (Folic Acid) 1 mg PO DAILY [facility] Last Admin: 12/03/16 09:51 Dose: 1 mg Hydromorphone HCl (Dilaudid) 2.5 mg IVP Q3 PRN PRN Reason: severe pain 8-10 Last Admin: 12/03/16 17:39 Dose: 2.5 mg Lactated Ringer's (Lactated Ringer's) 1,000 mls @ 150 mls/hr IV .Q6H40M [facility] Last Admin: 12/03/16 05:08 Dose: 150 mls/hr Piperacillin Sod/Tazobactam (Sod 3.375 gm/ Sodium Chloride) 100 mls @ 100 mls/ hr IVPB Q8 [facility] Last Admin: 12/03/16 09:53 Dose: 100 mls/hr Lisinopril (Zestril) 5 mg PO DAILY [facility] Last Admin: 12/03/16 09:53 Dose: 5 mg Multivitamins/Vitamin C (Multi-Delyn Liquid) 5 ml PO DAILY [facility] Last Admin: 12/03/16 09:52 Dose: Not Given Thiamine HCl (Vitamin B1 Tab) 100 mg PO DAILY [facility] Last Admin: 12/03/16 09:53 Dose: 100 mg - Labs Labs: 12/03/16 07:30 12/03/16 07:30 - Head Exam Head Exam: ATRAUMATIC - Eye Exam Eye Exam: Normal appearance - ENT Exam ENT Exam: Mucous Membranes Moist - Neck Exam Neck Exam: Full ROM - Respiratory Exam Respiratory Exam: Clear to Ausculation Bilateral - Cardiovascular Exam Cardiovascular Exam: REGULAR RHYTHM, +S1, +S2 - GI/Abdominal Exam GI & Abdominal Exam: Soft, Tenderness, Normal Bowel Sounds Additional comments: moderate abdominal tenderness Assessment and Plan (1) Pancreatitis Assessment & Plan: Patient clinically appears better. Amylase and lipase have declined to near normal levels and LFTs also better. Has been largely afebrile since starting antibiotics. Potassium was low today and IV potassium given. Will advance to clear liquid diet. Patient encouragd to increase time sitting in chair and ambulation. Status: Acute
[2016-12-04] MEDS: Lactated Ringer's 1,000 ML IV SCH ×4 (01:45→22:00)
[2016-12-04 07:36] LABS: BASO % 0.1 % (0.0-2.0); EOS % 0.3 % (0.0-4.0); HEMATOCRIT 36.9 % (35.0-51.0); LYMPH # 1.6 K/uL (1.0-4.3); LYMPH % 13.4 % (20.0-40.0); MEAN CELL VOLUME 92.4 fl (80.0-94.0); MEAN CORPUSCULAR HEMOGLOBIN 31.7 pg (27.0-31.0); MEAN CORPUSCULAR HGB CONC 34.3 g/dL (33.0-37.0); MEAN PLATELET VOLUME 8.5 fl (7.2-11.7); MONO # 1.5 K/uL (0.0-0.8); MONO % 12.6 % (0.0-10.0); NEUT # 8.5 K/uL (1.8-7.0); NEUT % 73.6 % (50.0-75.0); NRBC % 0.1 % (0.0-0.0); RED CELL DISTRIBUTION WIDTH 14.3 % (11.5-14.5); WHITE BLOOD COUNT 11.6 K/uL (4.8-10.8)
[2016-12-04 07:39] LABS: ALB/GLOB RATIO 1.1 (1.0-2.1); ALKALINE PHOSPHATASE 78 U/L (38-126); ALT/SGPT 78 U/L (21-72); AST/SGOT 52 U/L (17-59); BILIRUBIN,TOTAL 1.4 mg/dl (0.2-1.3); BLOOD UREA NITROGEN 6 mg/dl (9-20); CALCIUM 8.9 mg/dL (8.4-10.2); CARBON DIOXIDE 28 mmol/L (22-30); CHLORIDE 92 mmol/L (98-107); GFR AFRICAN-AMERICAN > 60; GLUCOSE,RANDOM 131 mg/dL (75-110); POTASSIUM 3.2 MMOL/L (3.6-5.0); SODIUM 132 mmol/l (132-148); TOTAL PROTEIN 7.6 G/DL (6.3-8.2)
[2016-12-04] MEDS: Piperacillin/Tazobact 3.375 GM in Sodium Chloride 0.9% 100 ML IVPB SCH ×2 (09:00)
[2016-12-04] MEDS: Multiple Vitamins Oral Solution PO SCH (09:00)
--- NOTE | 2016-12-04 11:59 | CP.PCM.PN ---
Subjective - Date & Time of Evaluation Date of Evaluation: 12/04/16 Time of Evaluation: 08:00 - Subjective Subjective: discussed with dr thomas fever persists abd batch still operator may need repeat CT scan Objective - Vital Signs/Intake and Output Vital Signs (last 24 hours): Temp Pulse Resp BP Pulse Ox 101.7 F H 94 H 18 123/77 94 L 12/04/16 09:12 12/04/16 09:01 12/04/16 08:37 12/04/16 09:01 12/04/16 08:37 Intake and Output: 12/04/16 12/04/16 06:59 18:59 Intake Total 00177 Output Total 600 Balance 40031 - Medications Medications: Current Medications Acetaminophen (Tylenol 325mg Tab) 650 mg PO Q6 PRN PRN Reason: Fever >100.4 F Last Admin: 12/04/16 09:12 Dose: 650 mg Amlodipine Besylate (Norvasc) 10 mg PO DAILY [facility] Last Admin: 12/04/16 09:01 Dose: 10 mg Folic Acid (Folic Acid) 1 mg PO DAILY [facility] Last Admin: 12/04/16 09:02 Dose: 1 mg Hydromorphone HCl (Dilaudid) 2.5 mg IVP Q3 PRN PRN Reason: severe pain 8-10 Last Admin: 12/04/16 09:53 Dose: 2.5 mg Lactated Ringer's (Lactated Ringer's) 1,000 mls @ 150 mls/hr IV .Q6H40M [facility] Last Admin: 12/04/16 09:52 Dose: Not Given Meropenem 1 gm/ Sodium (Chloride) 100 mls @ 100 mls/hr IVPB Q8 [facility] Lisinopril (Zestril) 5 mg PO DAILY [facility] Last Admin: 12/04/16 09:01 Dose: 5 mg Multivitamins/Vitamin C (Multi-Delyn Liquid) 5 ml PO DAILY [facility] Last Admin: 12/04/16 09:00 Dose: 5 ml Thiamine HCl (Vitamin B1 Tab) 100 mg PO DAILY [facility] Last Admin: 12/04/16 09:01 Dose: 100 mg - Labs Labs: 12/04/16 06:55 12/04/16 06:55 - Constitutional Appears: Toxic, Chronically Ill - Head Exam Head Exam: ATRAUMATIC, NORMAL INSPECTION, NORMOCEPHALIC - Eye Exam Eye Exam: PERRL. absent: Scleral icterus - ENT Exam ENT Exam: Mucous Membranes Dry - Neck Exam Neck Exam: absent: Lymphadenopathy - Respiratory Exam Respiratory Exam: Decreased Breath Sounds, Rhonchi - Cardiovascular Exam Cardiovascular Exam: Tachycardia, REGULAR RHYTHM, +S1, +S2 - GI/Abdominal Exam GI & Abdominal Exam: Distended, Soft, Tenderness - Rectal Exam Rectal Exam: Deferred - Exam Exam: NORMAL INSPECTION Assessment and Plan (1) Pancreatitis Status: Acute (2) Abnormal liver function test Status: Acute (3) Back pain Status: Acute (4) Cellulitis Status: Acute (5) Chronic low back pain Status: Acute
--- NOTE | 2016-12-04 12:05 | CP.PCM.PN ---
Subjective - Date & Time of Evaluation Date of Evaluation: 12/04/16 Time of Evaluation: 11:00 - Subjective Subjective: Patient asleep at time of evaluation. Per staff, the current regimen of pain medication is controlling his pain adequately. The pain persists despite supportive care and now patient has a fever. Work-up is ongoing. Objective - Vital Signs/Intake and Output Vital Signs (last 24 hours): Temp Pulse Resp BP Pulse Ox 98.3 F 94 H 18 123/77 94 L 12/04/16 10:12 12/04/16 09:01 12/04/16 08:37 12/04/16 09:01 12/04/16 08:37 Intake and Output: 12/04/16 12/04/16 06:59 18:59 Intake Total 10801 Output Total 600 Balance 86497 - Medications Medications: Current Medications Acetaminophen (Tylenol 325mg Tab) 650 mg PO Q6 PRN PRN Reason: Fever >100.4 F Last Admin: 12/04/16 09:12 Dose: 650 mg Amlodipine Besylate (Norvasc) 10 mg PO DAILY [facility] Last Admin: 12/04/16 09:01 Dose: 10 mg Folic Acid (Folic Acid) 1 mg PO DAILY [facility] Last Admin: 12/04/16 09:02 Dose: 1 mg Hydromorphone HCl (Dilaudid) 2.5 mg IVP Q3 PRN PRN Reason: severe pain 8-10 Last Admin: 12/04/16 09:53 Dose: 2.5 mg Lactated Ringer's (Lactated Ringer's) 1,000 mls @ 150 mls/hr IV .Q6H40M [facility] Last Admin: 12/04/16 09:52 Dose: Not Given Meropenem 1 gm/ Sodium (Chloride) 100 mls @ 100 mls/hr IVPB Q8 [facility] Lisinopril (Zestril) 5 mg PO DAILY [facility] Last Admin: 12/04/16 09:01 Dose: 5 mg Multivitamins/Vitamin C (Multi-Delyn Liquid) 5 ml PO DAILY [facility] Last Admin: 12/04/16 09:00 Dose: 5 ml Thiamine HCl (Vitamin B1 Tab) 100 mg PO DAILY [facility] Last Admin: 12/04/16 09:01 Dose: 100 mg - Labs Labs: 12/04/16 06:55 12/04/16 06:55 Assessment and Plan (1) Pancreatitis Assessment & Plan: 36 yo man w/ pancreatitis, abdominal pain, opioid dependence. - f/u ID + GI recommendation - continue current regimen - if no new pathologies or clinical developments, will work to wean patient off pain medication - patient to resume home regimen for pain management after discharge Status: Acute
[2016-12-04] MEDS ORDERED: Potassium Chloride 20 mEq ER Tab PO ONE (13:00)
[2016-12-04] MEDS: Meropenem 1 GM in Sodium Chloride 0.9% 100 ML IVPB SCH ×2 (13:00→18:45)
--- NOTE | 2016-12-04 19:36 | CP.PCM.PN ---
Subjective - Date & Time of Evaluation Date of Evaluation: 12/04/16 Time of Evaluation: 11:00 - Subjective Subjective: patient with elevated temp today. Having still periumbillical pain. Objective - Vital Signs/Intake and Output Vital Signs (last 24 hours): Temp Pulse Resp BP Pulse Ox 99.7 F H 93 H 18 130/89 96 12/04/16 16:11 12/04/16 16:11 12/04/16 16:11 12/04/16 16:11 12/04/16 16:11 - Medications Medications: Current Medications Acetaminophen (Tylenol 325mg Tab) 650 mg PO Q6 PRN PRN Reason: Fever >100.4 F Last Admin: 12/04/16 09:12 Dose: 650 mg Amlodipine Besylate (Norvasc) 10 mg PO DAILY [facility] Last Admin: 12/04/16 09:01 Dose: 10 mg Colchicine (Colocrys) 0.6 mg PO DAILY [facility] Last Admin: 12/04/16 15:44 Dose: 0.6 mg Folic Acid (Folic Acid) 1 mg PO DAILY [facility] Last Admin: 12/04/16 09:02 Dose: 1 mg Hydromorphone HCl (Dilaudid) 2.5 mg IVP Q3 PRN PRN Reason: severe pain 8-10 Last Admin: 12/04/16 18:45 Dose: 2.5 mg Lactated Ringer's (Lactated Ringer's) 1,000 mls @ 150 mls/hr IV .Q6H40M [facility] Last Admin: 12/04/16 15:45 Dose: Not Given Meropenem 1 gm/ Sodium (Chloride) 100 mls @ 100 mls/hr IVPB Q8 [facility] Last Admin: 12/04/16 18:45 Dose: 100 mls/hr Lisinopril (Zestril) 5 mg PO DAILY [facility] Last Admin: 12/04/16 09:01 Dose: 5 mg Multivitamins/Vitamin C (Multi-Delyn Liquid) 5 ml PO DAILY [facility] Last Admin: 12/04/16 09:00 Dose: 5 ml Thiamine HCl (Vitamin B1 Tab) 100 mg PO DAILY [facility] Last Admin: 12/04/16 09:01 Dose: 100 mg - Labs Labs: 12/04/16 06:55 12/04/16 06:55 - Head Exam Head Exam: ATRAUMATIC - Eye Exam Eye Exam: Normal appearance - ENT Exam ENT Exam: Normal Exam - Neck Exam Neck Exam: Full ROM - Respiratory Exam Respiratory Exam: Clear to Ausculation Bilateral - Cardiovascular Exam Cardiovascular Exam: REGULAR RHYTHM, +S1, +S2 - GI/Abdominal Exam GI & Abdominal Exam: Distended, Soft, Tenderness, Normal Bowel Sounds Additional comments: midabdominal tenderness without guarding or rebound Assessment and Plan (1) Pancreatitis Assessment & Plan: Has fever today. Also having attack of gout. Merem started by Dr. Hubbard . Will follow clinically. If patient doesn't improve may need repeat CT to look for pancreatic necrosis Status: Acute
--- NOTE | 2016-12-04 20:49 | CP.PCM.PN ---
Subjective - Date & Time of Evaluation Date of Evaluation: 12/04/16 Time of Evaluation: 22:22 - Subjective Subjective: Temp 101 Elevated procalcitonin Objective - Vital Signs/Intake and Output Vital Signs (last 24 hours): Temp Pulse Resp BP Pulse Ox 99.7 F H 93 H 18 130/89 96 12/04/16 16:11 12/04/16 16:11 12/04/16 16:11 12/04/16 16:11 12/04/16 16:11 Intake and Output: 12/04/16 12/05/16 18:59 06:59 Intake Total 700 Output Total 600 Balance 100 - Medications Medications: Current Medications Acetaminophen (Tylenol 325mg Tab) 650 mg PO Q6 PRN PRN Reason: Fever >100.4 F Last Admin: 12/04/16 09:12 Dose: 650 mg Amlodipine Besylate (Norvasc) 10 mg PO DAILY [facility] Last Admin: 12/04/16 09:01 Dose: 10 mg Colchicine (Colocrys) 0.6 mg PO DAILY [facility] Last Admin: 12/04/16 15:44 Dose: 0.6 mg Folic Acid (Folic Acid) 1 mg PO DAILY [facility] Last Admin: 12/04/16 09:02 Dose: 1 mg Hydromorphone HCl (Dilaudid) 2.5 mg IVP Q3 PRN PRN Reason: severe pain 8-10 Last Admin: 12/04/16 18:45 Dose: 2.5 mg Lactated Ringer's (Lactated Ringer's) 1,000 mls @ 150 mls/hr IV .Q6H40M [facility] Last Admin: 12/04/16 15:45 Dose: Not Given Meropenem 1 gm/ Sodium (Chloride) 100 mls @ 100 mls/hr IVPB Q8 [facility] Last Admin: 12/04/16 18:45 Dose: 100 mls/hr Lisinopril (Zestril) 5 mg PO DAILY [facility] Last Admin: 12/04/16 09:01 Dose: 5 mg Multivitamins/Vitamin C (Multi-Delyn Liquid) 5 ml PO DAILY [facility] Last Admin: 12/04/16 09:00 Dose: 5 ml Thiamine HCl (Vitamin B1 Tab) 100 mg PO DAILY [facility] Last Admin: 12/04/16 09:01 Dose: 100 mg - Labs Labs: 12/04/16 06:55 12/04/16 06:55 - Respiratory Exam Respiratory Exam: NORMAL BREATHING PATTERN - Cardiovascular Exam Cardiovascular Exam: REGULAR RHYTHM - GI/Abdominal Exam GI & Abdominal Exam: Normal Bowel Sounds Assessment and Plan - Assessment and Plan (Free Text) Assessment: temp? Blood cs pending IV ABX ID consult appreciated Chronic Relapsing Pancreatitis CT scan mass?? IVF GI consult Gout Colchicine Hypokalemia?? K+ suppl Urine lytes Nephrology consult Alcoholic withdrawal Librium Thiamine Folic acid Seizure precautions Psychiatry Chronic opiod use/ back pain Pain management
[2016-12-05 00:28] LABS: RBC URINE 3 /hpf (0-3); URINE BACTERIA RARE (<OCC); URINE BILIRUBIN NEGATIVE (NEGATIVE); URINE BLOOD NEGATIVE (NEGATIVE); URINE COLOR AMBER (YELLOW); URINE GLUCOSE (UA) NEG (Normal); URINE KETONE NEGATIVE (NEGATIVE); URINE LEUKOCYTE ESTERASE NEG Leu/uL (Negative); URINE PROTEIN 30 mg/dL (NEGATIVE); WBC URINE 2 /hpf (0-5)
[2016-12-05] MEDS: Meropenem 1 GM in Sodium Chloride 0.9% 100 ML IVPB SCH ×3 (01:36→17:52)
[2016-12-05] MEDS: Lactated Ringer's 1,000 ML IV SCH ×4 (05:15→20:14)
[2016-12-05 07:42] LABS: BASO % 0.2 % (0.0-2.0); EOS % 0.6 % (0.0-4.0); HEMATOCRIT 32.7 % (35.0-51.0); LYMPH # 1.4 K/uL (1.0-4.3); LYMPH % 17.9 % (20.0-40.0); MEAN CELL VOLUME 93.5 fl (80.0-94.0); MEAN CORPUSCULAR HEMOGLOBIN 31.7 pg (27.0-31.0); MEAN CORPUSCULAR HGB CONC 33.9 g/dL (33.0-37.0); MEAN PLATELET VOLUME 8.7 fl (7.2-11.7); MONO # 1.2 K/uL (0.0-0.8); MONO % 15.6 % (0.0-10.0); NEUT # 5.2 K/uL (1.8-7.0); NEUT % 65.7 % (50.0-75.0); RED CELL DISTRIBUTION WIDTH 14.2 % (11.5-14.5); WHITE BLOOD COUNT 7.9 K/uL (4.8-10.8)
[2016-12-05 08:08] LABS: ALKALINE PHOSPHATASE 57 U/L (38-126); ALT/SGPT 59 U/L (21-72); AST/SGOT 37 U/L (17-59); BLOOD UREA NITROGEN 6 mg/dl (9-20); CALCIUM 8.2 mg/dL (8.4-10.2); CARBON DIOXIDE 27 mmol/L (22-30); CHLORIDE 96 mmol/L (98-107); GFR AFRICAN-AMERICAN > 60; GLUCOSE,RANDOM 123 mg/dL (75-110); LIPASE 97 U/L (23-300); POTASSIUM 3.4 MMOL/L (3.6-5.0); SODIUM 135 mmol/l (132-148); TOTAL PROTEIN 6.7 G/DL (6.3-8.2)
[2016-12-05] MEDS: Multiple Vitamins Oral Solution PO SCH (08:26)
[2016-12-05] MEDS ORDERED: Potassium Chloride 20 mEq ER Tab PO ONE ×2 (08:58)
--- NOTE | 2016-12-05 11:04 | CP.PCM.PN ---
Subjective - Date & Time of Evaluation Date of Evaluation: 12/05/16 Time of Evaluation: 11:02 - Subjective Subjective: This patient who is 36 years old was admitted with abdominal pain and was diagnosed to have acute pancreatitis I was called to see him for hypokalemia. 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 And also yesterday developed acute gouty arthritis in the lower extremity. Patient started on colchicine Patient reported that he has been drinking to have a day before he had this episode of pancreatitis. And he has previously history of acute gouty arthritis in the past number of years ago Social history noncontributory except as noted above Objective - Vital Signs/Intake and Output Vital Signs (last 24 hours): Temp Pulse Resp BP Pulse Ox 98.4 F 96 H 22 129/81 99 12/05/16 08:00 12/05/16 09:00 12/05/16 08:00 12/05/16 08:26 12/05/16 08:00 Intake and Output: 12/05/16 12/05/16 06:59 18:59 Intake Total 700 Output Total 600 Balance 100 - Medications Medications: Current Medications Acetaminophen (Tylenol 325mg Tab) 650 mg PO Q6 PRN PRN Reason: Fever >100.4 F Last Admin: 12/04/16 09:12 Dose: 650 mg Amlodipine Besylate (Norvasc) 10 mg PO DAILY [facility] Last Admin: 12/05/16 08:26 Dose: 10 mg Colchicine (Colocrys) 0.6 mg PO TID PRN PRN Reason: gout Folic Acid (Folic Acid) 1 mg PO DAILY [facility] Last Admin: 12/05/16 08:26 Dose: 1 mg Hydromorphone HCl (Dilaudid) 0.5 mg IVP Q3H PRN PRN Reason: Pain, severe (8-10) Hydromorphone HCl (Dilaudid) 2 mg IVP Q3 PRN PRN Reason: severe pain 8-10 Lactated Ringer's (Lactated Ringer's) 1,000 mls @ 150 mls/hr IV .Q6H40M [facility] Last Admin: 12/05/16 05:15 Dose: Not Given Meropenem 1 gm/ Sodium (Chloride) 100 mls @ 100 mls/hr IVPB Q8 [facility] Last Admin: 05/23/17 08:30 Dose: 100 mls/hr Lisinopril (Zestril) 5 mg PO DAILY [facility] Last Admin: 12/05/16 08:26 Dose: 5 mg Multivitamins/Vitamin C (Multi-Delyn Liquid) 5 ml PO DAILY [facility] Last Admin: 12/05/16 08:26 Dose: 5 ml Thiamine HCl (Vitamin B1 Tab) 100 mg PO DAILY [facility] Last Admin: 12/05/16 08:26 Dose: 100 mg - Labs Labs: 12/05/16 05:30 12/05/16 05:30 - Constitutional Appears: No Acute Distress - Eye Exam Eye Exam: Normal appearance - ENT Exam ENT Exam: Mucous Membranes Moist - Respiratory Exam Respiratory Exam: absent: Chest Wall Tenderness - Cardiovascular Exam Cardiovascular Exam: REGULAR RHYTHM. absent: Rubs - GI/Abdominal Exam GI & Abdominal Exam: Guarding, Normal Bowel Sounds - Extremities Exam Extremities Exam: absent: Calf Tenderness Additional comments: See the description regarding the pain in the lower extremity and gout. Assessment and Plan (1) Hypokalemia Assessment & Plan: Patient admitted with acute pancreatitis and is developing hypokalemia because of the nothing by mouth . Continue potassium supplement 60 mEq and 24 hours by mouth or intravenously to be added until the patient started to take by mouth food . Also I'm ordering stat serum magnesium level Patient also has acute gouty arthritis and I suggest to continue colchicine not PRN but around the clock as long as no diarrhea 4 times a day the first day. Continue monitoring Status: Acute (2) Pancreatitis Status: Acute
[2016-12-05] MEDS: HYDROmorphone 0.5 mg/0.5 ml ISec IVP PRN ×2 (17:14→20:08)
--- NOTE | 2016-12-05 20:41 | CP.PCM.PN ---
Subjective - Date & Time of Evaluation Date of Evaluation: 12/05/16 Time of Evaluation: 22:22 - Subjective Subjective: Nephrology consult appreciated Objective - Vital Signs/Intake and Output Vital Signs (last 24 hours): Temp Pulse Resp BP Pulse Ox 99.4 F 95 H 18 109/68 95 12/05/16 16:54 12/05/16 16:18 12/05/16 16:18 12/05/16 16:18 12/05/16 16:18 - Medications Medications: Current Medications Acetaminophen (Tylenol 325mg Tab) 650 mg PO Q6 PRN PRN Reason: Fever >100.4 F Last Admin: 12/05/16 15:54 Dose: 650 mg Amlodipine Besylate (Norvasc) 10 mg PO DAILY [facility] Last Admin: 12/05/16 08:26 Dose: 10 mg Colchicine (Colocrys) 0.6 mg PO TID PRN PRN Reason: gout Last Admin: 12/05/16 15:54 Dose: 0.6 mg Folic Acid (Folic Acid) 1 mg PO DAILY [facility] Last Admin: 12/05/16 08:26 Dose: 1 mg Hydromorphone HCl (Dilaudid) 0.5 mg IVP Q3H PRN PRN Reason: Pain, severe (8-10) Last Admin: 12/05/16 20:08 Dose: 0.5 mg Hydromorphone HCl (Dilaudid) 2 mg IVP Q3 PRN PRN Reason: severe pain 8-10 Last Admin: 12/05/16 14:04 Dose: 2 mg Lactated Ringer's (Lactated Ringer's) 1,000 mls @ 150 mls/hr IV .Q6H40M [facility] Last Admin: 12/05/16 20:14 Dose: 150 mls/hr Meropenem 1 gm/ Sodium (Chloride) 100 mls @ 100 mls/hr IVPB Q8 [facility] Last Admin: 12/05/16 17:52 Dose: 100 mls/hr Lisinopril (Zestril) 5 mg PO DAILY [facility] Last Admin: 12/05/16 08:26 Dose: 5 mg Multivitamins/Vitamin C (Multi-Delyn Liquid) 5 ml PO DAILY [facility] Last Admin: 12/05/16 08:26 Dose: 5 ml Thiamine HCl (Vitamin B1 Tab) 100 mg PO DAILY [facility] Last Admin: 12/05/16 08:26 Dose: 100 mg - Labs Labs: 12/05/16 05:30 12/05/16 05:30 - Respiratory Exam Respiratory Exam: NORMAL BREATHING PATTERN - Cardiovascular Exam Cardiovascular Exam: REGULAR RHYTHM - GI/Abdominal Exam GI & Abdominal Exam: Normal Bowel Sounds Assessment and Plan - Assessment and Plan (Free Text) Assessment: temp? WBC wnl Blood cs no growth IV ABX Meropenem ID consult appreciated Chronic Relapsing Pancreatitis CT scan mass?? IVF GI consult Hypokalemia?? Dec oral intake K+ suppl Nephrology consult appreciated Gout Colchicine Alcoholic withdrawal Librium Thiamine Folic acid Seizure precautions Psychiatry Chronic opiod use/ back pain Pain management
--- NOTE | 2016-12-05 20:46 | CP.PCM.PN ---
Subjective - Date & Time of Evaluation Date of Evaluation: 12/05/16 Time of Evaluation: 08:45 - Subjective Subjective: Still with abdominal pain requiring analgesia. Having on and off temp spikes. Lately gout is active Objective - Vital Signs/Intake and Output Vital Signs (last 24 hours): Temp Pulse Resp BP Pulse Ox 99.4 F 95 H 18 109/68 95 12/05/16 16:54 12/05/16 16:18 12/05/16 16:18 12/05/16 16:18 12/05/16 16:18 - Medications Medications: Current Medications Acetaminophen (Tylenol 325mg Tab) 650 mg PO Q6 PRN PRN Reason: Fever >100.4 F Last Admin: 12/05/16 15:54 Dose: 650 mg Amlodipine Besylate (Norvasc) 10 mg PO DAILY [facility] Last Admin: 12/05/16 08:26 Dose: 10 mg Colchicine (Colocrys) 0.6 mg PO TID PRN PRN Reason: gout Last Admin: 12/05/16 15:54 Dose: 0.6 mg Folic Acid (Folic Acid) 1 mg PO DAILY [facility] Last Admin: 12/05/16 08:26 Dose: 1 mg Hydromorphone HCl (Dilaudid) 0.5 mg IVP Q3H PRN PRN Reason: Pain, severe (8-10) Last Admin: 12/05/16 20:08 Dose: 0.5 mg Hydromorphone HCl (Dilaudid) 2 mg IVP Q3 PRN PRN Reason: severe pain 8-10 Last Admin: 12/05/16 14:04 Dose: 2 mg Lactated Ringer's (Lactated Ringer's) 1,000 mls @ 150 mls/hr IV .Q6H40M [facility] Last Admin: 12/05/16 20:14 Dose: 150 mls/hr Meropenem 1 gm/ Sodium (Chloride) 100 mls @ 100 mls/hr IVPB Q8 [facility] Last Admin: 12/05/16 17:52 Dose: 100 mls/hr Lisinopril (Zestril) 5 mg PO DAILY [facility] Last Admin: 12/05/16 08:26 Dose: 5 mg Multivitamins/Vitamin C (Multi-Delyn Liquid) 5 ml PO DAILY [facility] Last Admin: 12/05/16 08:26 Dose: 5 ml Thiamine HCl (Vitamin B1 Tab) 100 mg PO DAILY [facility] Last Admin: 12/05/16 08:26 Dose: 100 mg - Labs Labs: 12/05/16 05:30 12/05/16 05:30 - Head Exam Head Exam: ATRAUMATIC - Eye Exam Eye Exam: Normal appearance - ENT Exam ENT Exam: Mucous Membranes Moist - Neck Exam Neck Exam: Full ROM - Respiratory Exam Respiratory Exam: Clear to Ausculation Bilateral - Cardiovascular Exam Cardiovascular Exam: REGULAR RHYTHM - GI/Abdominal Exam GI & Abdominal Exam: Distended, Soft, Tenderness, Normal Bowel Sounds Additional comments: midabdominal tenderness Assessment and Plan (1) Pancreatitis Assessment & Plan: Currently on Merem. WBC and lipase are down. Low fat diet started Status: Acute
[2016-12-05] MEDS ORDERED: Bismuth Subsalicylate 262 mg/15 ml Sus (240 ml) PO ONE (23:30)
[2016-12-06] MEDS: Lactated Ringer's 1,000 ML IV SCH ×2 (00:56→17:00)
[2016-12-06] MEDS: Meropenem 1 GM in Sodium Chloride 0.9% 100 ML IVPB SCH ×3 (01:30→17:00)
[2016-12-06] MEDS: HYDROmorphone 0.5 mg/0.5 ml ISec IVP PRN (05:05)
[2016-12-06 07:51] LABS: BASO % 0.2 % (0.0-2.0); EOS # 0.1 K/uL (0.0-0.7); EOS % 1.2 % (0.0-4.0); HEMATOCRIT 34.4 % (35.0-51.0); LYMPH # 1.2 K/uL (1.0-4.3); MEAN CELL VOLUME 94.5 fl (80.0-94.0); MEAN CORPUSCULAR HGB CONC 33.8 g/dL (33.0-37.0); MONO % 15.8 % (0.0-10.0); NEUT # 3.8 K/uL (1.8-7.0); NEUT % 62.8 % (50.0-75.0); NRBC % 0.1 % (0.0-0.0); RED CELL DISTRIBUTION WIDTH 14.4 % (11.5-14.5); WHITE BLOOD COUNT 6.1 K/uL (4.8-10.8)
[2016-12-06 07:57] LABS: ALKALINE PHOSPHATASE 51 U/L (38-126); ALT/SGPT 55 U/L (21-72); AST/SGOT 42 U/L (17-59); BILIRUBIN,TOTAL 0.9 mg/dl (0.2-1.3); BLOOD UREA NITROGEN 6 mg/dl (9-20); CALCIUM 8.3 mg/dL (8.4-10.2); CARBON DIOXIDE 24 mmol/L (22-30); CHLORIDE 99 mmol/L (98-107); GFR AFRICAN-AMERICAN > 60; GLUCOSE,RANDOM 141 mg/dL (75-110); POTASSIUM 3.9 MMOL/L (3.6-5.0); SODIUM 137 mmol/l (132-148); TOTAL PROTEIN 6.9 G/DL (6.3-8.2)
[2016-12-06] MEDS: Multiple Vitamins Oral Solution PO SCH (09:00)
[2016-12-06] MEDS ORDERED: HYDROmorphone 0.5 mg/0.5 ml ISec IVP PRN (10:05)
--- NOTE | 2016-12-06 10:31 | CP.PCM.PN ---
Subjective - Date & Time of Evaluation Date of Evaluation: 12/06/16 Time of Evaluation: 10:28 - Subjective Subjective: Patient and bed appeared to be comfortable although still complaining of pain of the left foot from the gouty arthritis Also complaining of diarrhea which she is started about 2 days ago before he was given colchicine according to the patient so we not sure this diarrhea is related to congestion or as he said started before. We will add Indocin 25 mg 3 times a day for today only and see what happens or he may need some and intravenous steroid for short course perhaps if is not responding by tomorrow Physical examination Conscious Vital signs stable Chest clear Heart no rubs Abdomen soft Extremity left foot and right foot appeared to be less swollen and less redness Potassium corrected The plan as above Objective - Vital Signs/Intake and Output Vital Signs (last 24 hours): Temp Pulse Resp BP Pulse Ox 98.9 F 88 20 138/85 99 12/06/16 08:27 12/06/16 09:02 12/06/16 08:27 12/06/16 09:02 12/06/16 08:27 - Medications Medications: Current Medications Acetaminophen (Tylenol 325mg Tab) 650 mg PO Q6 PRN PRN Reason: Fever >100.4 F Last Admin: 12/05/16 15:54 Dose: 650 mg Amlodipine Besylate (Norvasc) 10 mg PO DAILY [facility] Last Admin: 12/06/16 09:00 Dose: 10 mg Colchicine (Colocrys) 0.6 mg PO TID PRN PRN Reason: gout Last Admin: 12/05/16 15:54 Dose: 0.6 mg Folic Acid (Folic Acid) 1 mg PO DAILY [facility] Last Admin: 12/06/16 08:59 Dose: 1 mg Hydromorphone HCl (Dilaudid) 2 mg IVP Q3 PRN PRN Reason: severe pain 8-10 Last Admin: 12/06/16 08:58 Dose: 2 mg Hydromorphone HCl (Dilaudid) 0.5 mg IVP Q3H PRN PRN Reason: Pain, moderate (4-7) Lactated Ringer's (Lactated Ringer's) 1,000 mls @ 150 mls/hr IV .Q6H40M [facility] Last Admin: 12/06/16 00:56 Dose: Not Given Meropenem 1 gm/ Sodium (Chloride) 100 mls @ 100 mls/hr IVPB Q8 [facility] Last Admin: 12/06/16 08:59 Dose: 100 mls/hr Lisinopril (Zestril) 5 mg PO DAILY [facility] Last Admin: 12/06/16 09:02 Dose: 5 mg Multivitamins/Vitamin C (Multi-Delyn Liquid) 5 ml PO DAILY [facility] Last Admin: 12/06/16 09:00 Dose: 5 ml Thiamine HCl (Vitamin B1 Tab) 100 mg PO DAILY [facility] Last Admin: 12/06/16 09:01 Dose: 100 mg - Labs Labs: 12/06/16 06:55 12/06/16 06:55 Assessment and Plan (1) Hypokalemia Status: Acute (2) Pancreatitis Status: Acute
--- NOTE | 2016-12-06 17:16 | CP.PCM.PN ---
Subjective - Date & Time of Evaluation Date of Evaluation: 12/06/16 Time of Evaluation: 06:00 - Subjective Subjective: c/o LBM alert/ oriented Pain +++ no IV Dilaudid available cultures neg no fever wbc wnl Objective - Vital Signs/Intake and Output Vital Signs (last 24 hours): Temp Pulse Resp BP Pulse Ox 99.2 F 87 18 116/76 96 12/06/16 16:10 12/06/16 16:10 12/06/16 16:10 12/06/16 16:10 12/06/16 16:10 - Medications Medications: Current Medications Acetaminophen (Tylenol 325mg Tab) 650 mg PO Q6 PRN PRN Reason: Fever >100.4 F Last Admin: 12/05/16 15:54 Dose: 650 mg Amlodipine Besylate (Norvasc) 10 mg PO DAILY [facility] Last Admin: 12/06/16 09:00 Dose: 10 mg Colchicine (Colocrys) 0.6 mg PO BID [facility] Last Admin: 12/06/16 12:08 Dose: 0.6 mg Folic Acid (Folic Acid) 1 mg PO DAILY [facility] Last Admin: 12/06/16 08:59 Dose: 1 mg Hydromorphone HCl (Dilaudid) 2 mg IVP Q3 PRN PRN Reason: severe pain 8-10 Last Admin: 12/06/16 15:17 Dose: 2 mg Hydromorphone HCl (Dilaudid) 0.5 mg IVP Q3H PRN PRN Reason: Pain, moderate (4-7) Lactated Ringer's (Lactated Ringer's) 1,000 mls @ 150 mls/hr IV .Q6H40M [facility] Last Admin: 12/06/16 17:00 Dose: 150 mls/hr Meropenem 1 gm/ Sodium (Chloride) 100 mls @ 100 mls/hr IVPB Q8 [facility] Last Admin: 12/06/16 17:00 Dose: 100 mls/hr Indomethacin (Indocin) 25 mg PO TID [facility] Stop: 12/07/16 13:00 Last Admin: 12/06/16 16:59 Dose: 25 mg Lisinopril (Zestril) 5 mg PO DAILY [facility] Last Admin: 12/06/16 09:02 Dose: 5 mg Multivitamins/Vitamin C (Multi-Delyn Liquid) 5 ml PO DAILY [facility] Last Admin: 12/06/16 09:00 Dose: 5 ml Thiamine HCl (Vitamin B1 Tab) 100 mg PO DAILY [facility] Last Admin: 12/06/16 09:01 Dose: 100 mg - Labs Labs: 12/06/16 06:55 12/06/16 06:55 - Constitutional Appears: Non-toxic, Chronically Ill - Head Exam Head Exam: NORMOCEPHALIC - Eye Exam Eye Exam: PERRL. absent: Scleral icterus - ENT Exam ENT Exam: Mucous Membranes Dry - Neck Exam Neck Exam: absent: Lymphadenopathy - Respiratory Exam Respiratory Exam: Decreased Breath Sounds, Clear to Ausculation Bilateral - Cardiovascular Exam Cardiovascular Exam: REGULAR RHYTHM, +S1, +S2 - GI/Abdominal Exam GI & Abdominal Exam: Distended, Soft. absent: Tenderness - Rectal Exam Rectal Exam: Deferred - Exam Exam: NORMAL INSPECTION - Extremities Exam Extremities Exam: absent: Calf Tenderness, Pedal Edema - Back Exam Back Exam: absent: CVA tenderness (L) - Neurological Exam Neurological Exam: Alert, Awake, Oriented x3 - Psychiatric Exam Psychiatric exam: Normal Mood - Skin Skin Exam: Dry, Intact Assessment and Plan (1) Pancreatitis Status: Acute (2) Abnormal liver function test Status: Acute (3) Back pain Status: Acute (4) Cellulitis Status: Acute (5) Chronic low back pain Status: Acute - Assessment and Plan (Free Text) Assessment: resolving pancreatitis diarrhea may be secondary to colchicine, antibiotics, pancreatic insuff IV antibiotics can be d/c 'd in am needs pain management and GI followup explained serious nature of illness and need to remain abstinent from alcohol
--- NOTE | 2016-12-06 19:46 | CP.PCM.PN ---
Subjective - Date & Time of Evaluation Date of Evaluation: 12/06/16 Time of Evaluation: 09:00 - Subjective Subjective: Patient still with abdominal pain. Having multiple bowel movements Objective - Vital Signs/Intake and Output Vital Signs (last 24 hours): Temp Pulse Resp BP Pulse Ox 99.2 F 87 18 116/76 96 12/06/16 16:10 12/06/16 16:10 12/06/16 16:10 12/06/16 16:10 12/06/16 16:10 - Medications Medications: Current Medications Acetaminophen (Tylenol 325mg Tab) 650 mg PO Q6 PRN PRN Reason: Fever >100.4 F Last Admin: 12/05/16 15:54 Dose: 650 mg Amlodipine Besylate (Norvasc) 10 mg PO DAILY [facility] Last Admin: 12/06/16 09:00 Dose: 10 mg Colchicine (Colocrys) 0.6 mg PO BID [facility] Last Admin: 12/06/16 19:20 Dose: 0.6 mg Folic Acid (Folic Acid) 1 mg PO DAILY [facility] Last Admin: 12/06/16 08:59 Dose: 1 mg Hydromorphone HCl (Dilaudid) 2 mg IVP Q3 PRN PRN Reason: severe pain 8-10 Last Admin: 12/06/16 15:17 Dose: 2 mg Hydromorphone HCl (Dilaudid) 0.5 mg IVP Q3H PRN PRN Reason: Pain, moderate (4-7) Lactated Ringer's (Lactated Ringer's) 1,000 mls @ 150 mls/hr IV .Q6H40M [facility] Last Admin: 12/06/16 17:00 Dose: 150 mls/hr Meropenem 1 gm/ Sodium (Chloride) 100 mls @ 100 mls/hr IVPB Q8 [facility] Last Admin: 12/06/16 17:00 Dose: 100 mls/hr Indomethacin (Indocin) 25 mg PO TID [facility] Stop: 12/07/16 13:00 Last Admin: 12/06/16 16:59 Dose: 25 mg Lisinopril (Zestril) 5 mg PO DAILY [facility] Last Admin: 12/06/16 09:02 Dose: 5 mg Multivitamins/Vitamin C (Multi-Delyn Liquid) 5 ml PO DAILY [facility] Last Admin: 12/06/16 09:00 Dose: 5 ml Thiamine HCl (Vitamin B1 Tab) 100 mg PO DAILY [facility] Last Admin: 12/06/16 09:01 Dose: 100 mg - Labs Labs: 12/06/16 06:55 12/06/16 06:55 - Head Exam Head Exam: ATRAUMATIC - Eye Exam Eye Exam: Normal appearance - ENT Exam ENT Exam: Normal Exam - Neck Exam Neck Exam: Full ROM - Respiratory Exam Respiratory Exam: Clear to Ausculation Bilateral - Cardiovascular Exam Cardiovascular Exam: +S1, +S2 - GI/Abdominal Exam GI & Abdominal Exam: Soft, Tenderness, Normal Bowel Sounds Additional comments: moderate epigastric tenderness appears improved Assessment and Plan (1) Pancreatitis Assessment & Plan: Clinically abdominal pain appears better but having diarrhea. Temperature now normal and WBC, lipase, and albumin are better. follow clinically. will see if diarrhea improves after stopping antibiotics. Colchicine is at a fairly low dose and patient oral intake so minimalthat even with some degree of pancreatic insufficiency unlikely to produce profuse diarrhea. Status: Acute
--- NOTE | 2016-12-06 19:48 | CP.PCM.PN ---
Subjective - Date & Time of Evaluation Date of Evaluation: 12/06/16 Time of Evaluation: 22:22 - Subjective Subjective: Still with pain Afebrile today Objective - Vital Signs/Intake and Output Vital Signs (last 24 hours): Temp Pulse Resp BP Pulse Ox 99.2 F 87 18 116/76 96 12/06/16 16:10 12/06/16 16:10 12/06/16 16:10 12/06/16 16:10 12/06/16 16:10 - Medications Medications: Current Medications Acetaminophen (Tylenol 325mg Tab) 650 mg PO Q6 PRN PRN Reason: Fever >100.4 F Last Admin: 12/05/16 15:54 Dose: 650 mg Amlodipine Besylate (Norvasc) 10 mg PO DAILY [facility] Last Admin: 12/06/16 09:00 Dose: 10 mg Colchicine (Colocrys) 0.6 mg PO BID [facility] Last Admin: 12/06/16 19:20 Dose: 0.6 mg Folic Acid (Folic Acid) 1 mg PO DAILY [facility] Last Admin: 12/06/16 08:59 Dose: 1 mg Hydromorphone HCl (Dilaudid) 2 mg IVP Q3 PRN PRN Reason: severe pain 8-10 Last Admin: 12/06/16 15:17 Dose: 2 mg Hydromorphone HCl (Dilaudid) 0.5 mg IVP Q3H PRN PRN Reason: Pain, moderate (4-7) Lactated Ringer's (Lactated Ringer's) 1,000 mls @ 150 mls/hr IV .Q6H40M [facility] Last Admin: 12/06/16 17:00 Dose: 150 mls/hr Meropenem 1 gm/ Sodium (Chloride) 100 mls @ 100 mls/hr IVPB Q8 [facility] Last Admin: 12/06/16 17:00 Dose: 100 mls/hr Indomethacin (Indocin) 25 mg PO TID [facility] Stop: 12/07/16 13:00 Last Admin: 12/06/16 16:59 Dose: 25 mg Lisinopril (Zestril) 5 mg PO DAILY [facility] Last Admin: 12/06/16 09:02 Dose: 5 mg Multivitamins/Vitamin C (Multi-Delyn Liquid) 5 ml PO DAILY [facility] Last Admin: 12/06/16 09:00 Dose: 5 ml Thiamine HCl (Vitamin B1 Tab) 100 mg PO DAILY [facility] Last Admin: 12/06/16 09:01 Dose: 100 mg - Labs Labs: 12/06/16 06:55 12/06/16 06:55 - Respiratory Exam Respiratory Exam: NORMAL BREATHING PATTERN - Cardiovascular Exam Cardiovascular Exam: REGULAR RHYTHM - GI/Abdominal Exam GI & Abdominal Exam: Normal Bowel Sounds Assessment and Plan - Assessment and Plan (Free Text) Assessment: Chronic opiod use/ back pain Pain management temp? WBC wnl Blood cs no growth IV ABX Meropenem ID consult appreciated Chronic Relapsing Pancreatitis CT scan mass?? IVF GI consult Hypokalemia?? Dec oral intake K+ suppl Nephrology consult appreciated Gout Colchicine Alcoholic withdrawal Librium Thiamine Folic acid Seizure precautions Psychiatry
[2016-12-07] MEDS: Meropenem 1 GM in Sodium Chloride 0.9% 100 ML IVPB SCH ×2 (01:10→09:05)
[2016-12-07] MEDS: Lactated Ringer's 1,000 ML IV SCH (03:00)
[2016-12-07] MEDS ORDERED: HYDROmorphone 0.5 mg/0.5 ml ISec IVP PRN ×2 (08:00)
[2016-12-07] MEDS: Multiple Vitamins Oral Solution PO SCH (09:06)
[2016-12-07 15:22] LABS: BASO % 0.5 % (0.0-2.0); EOS # 0.1 K/uL (0.0-0.7); EOS % 2.2 % (0.0-4.0); HEMATOCRIT 33.8 % (35.0-51.0); LYMPH # 1.3 K/uL (1.0-4.3); LYMPH % 24.5 % (20.0-40.0); MEAN CELL VOLUME 92.7 fl (80.0-94.0); MEAN CORPUSCULAR HEMOGLOBIN 32.5 pg (27.0-31.0); MEAN PLATELET VOLUME 8.6 fl (7.2-11.7); MONO # 0.8 K/uL (0.0-0.8); NEUT % 56.8 % (50.0-75.0); NRBC % 0.1 % (0.0-0.0); RED CELL DISTRIBUTION WIDTH 14.4 % (11.5-14.5); WHITE BLOOD COUNT 5.3 K/uL (4.8-10.8)
[2016-12-07 15:38] LABS: ALB/GLOB RATIO 0.9 (1.0-2.1); ALKALINE PHOSPHATASE 53 U/L (38-126); ALT/SGPT 51 U/L (21-72); AST/SGOT 36 U/L (17-59); BILIRUBIN,TOTAL 0.6 mg/dl (0.2-1.3); BLOOD UREA NITROGEN 6 mg/dl (9-20); CALCIUM 9.5 mg/dL (8.4-10.2); CARBON DIOXIDE 25 mmol/L (22-30); CHLORIDE 103 mmol/L (98-107); GFR AFRICAN-AMERICAN > 60; GLUCOSE,RANDOM 163 mg/dL (75-110); POTASSIUM 3.7 MMOL/L (3.6-5.0); SODIUM 139 mmol/l (132-148); TOTAL PROTEIN 6.7 G/DL (6.3-8.2)
[2016-12-07 16:19] VITALS: BP 108/75; PULSE 71; RESP 18; TEMP 97.6; O2SAT 94
--- NOTE | 2016-12-07 21:21 | CP.PCM.PN ---
Subjective - Date & Time of Evaluation Date of Evaluation: 12/07/16 Time of Evaluation: 22:22 - Subjective Subjective: Improved Dec pain Objective - Vital Signs/Intake and Output Vital Signs (last 24 hours): Temp Pulse Resp BP Pulse Ox 97.6 F 71 18 108/75 94 L 12/07/16 16:18 12/07/16 16:18 12/07/16 16:18 12/07/16 16:18 12/07/16 16:18 - Medications Medications: Current Medications Acetaminophen (Tylenol 325mg Tab) 650 mg PO Q6 PRN PRN Reason: Fever >100.4 F Last Admin: 12/05/16 15:54 Dose: 650 mg Amlodipine Besylate (Norvasc) 10 mg PO DAILY [facility] Last Admin: 12/07/16 09:06 Dose: 10 mg Ciprofloxacin (Cipro) 500 mg PO Q12 [facility] Last Admin: 12/07/16 12:43 Dose: 500 mg Colchicine (Colocrys) 0.6 mg PO BID [facility] Last Admin: 12/07/16 16:49 Dose: 0.6 mg Folic Acid (Folic Acid) 1 mg PO DAILY [facility] Last Admin: 12/07/16 09:03 Dose: 1 mg Hydromorphone HCl (Dilaudid) 4 mg PO Q4 PRN PRN Reason: Pain, moderate (4-7) Last Admin: 12/07/16 20:27 Dose: 4 mg Hydromorphone HCl (Dilaudid) 8 mg PO Q4 PRN PRN Reason: Pain, severe (8-10) Lactated Ringer's (Lactated Ringer's) 1,000 mls @ 150 mls/hr IV .Q6H40M [facility] Last Admin: 12/07/16 03:00 Dose: Not Given Lisinopril (Zestril) 5 mg PO DAILY [facility] Last Admin: 12/07/16 09:07 Dose: 5 mg Metronidazole (Flagyl) 500 mg PO Q8 [facility] Last Admin: 12/07/16 12:37 Dose: 500 mg Multivitamins/Vitamin C (Multi-Delyn Liquid) 5 ml PO DAILY [facility] Last Admin: 12/07/16 09:06 Dose: 5 ml Thiamine HCl (Vitamin B1 Tab) 100 mg PO DAILY [facility] Last Admin: 12/07/16 09:07 Dose: 100 mg - Labs Labs: 12/07/16 15:00 12/07/16 15:00 - Respiratory Exam Respiratory Exam: NORMAL BREATHING PATTERN - Cardiovascular Exam Cardiovascular Exam: REGULAR RHYTHM - GI/Abdominal Exam GI & Abdominal Exam: Normal Bowel Sounds Assessment and Plan - Assessment and Plan (Free Text) Assessment: Chronic opiod use/ back pain Pain management temp? gastroenteritis?? WBC wnl Blood cs no growth Flagyl Cipro ID Chronic Relapsing Pancreatitis CT scan pancreatitis IVF GI consult Hypokalemia?? Dec oral intake K+ suppl Nephrology Gout Colchicine Chronic Alcoholism Alcoholic withdrawal Librium d/c Thiamine Folic acid Seizure precautions Psychiatry
== END 2016-12-07 22:00 | disposition home or self-care (01) | DRG 439 ==
LOC: H.ER 03:07 → H.EROBSV 05:16 → OBSVTOIN 07:00 → H.ERHOLD 07:00 → H.MEDSURG1 08:50 → H.TEL 22:46 → H.MEDSURG1 12-03 22:26
PROVIDERS: ADMIT Family Medicine Geriatric Medicine; ATTEND Family Medicine Geriatric Medicine
DX: K86.0 Alcohol-induced chronic pancreatitis (principal); F10.239 Alcohol dependence with withdrawal, unspecified; L40.50 Arthropathic psoriasis, unspecified; I10 Essential (primary) hypertension; F10.229 Alcohol dependence with intoxication, unspecified; F11.10 Opioid abuse, uncomplicated; G89.29 Other chronic pain; E87.6 Hypokalemia; M06.9 Rheumatoid arthritis, unspecified; Y90.7 Blood alcohol level of 200-239 mg/100 ml; M54.5 Low back pain; M10.00 Idiopathic gout, unspecified site; F43.10 Post-traumatic stress disorder, unspecified; F32.9 Major depressive disorder, single episode, unspecified; R19.7 Diarrhea, unspecified; Z79.891 Long term (current) use of opiate analgesic; Z87.891 Personal history of nicotine dependence; Z87.828 Personal history of other (healed) physical injury and trauma

== ENCOUNTER 2017-09-05 12:19 | Inpatient (IN) | payer OTHER ==
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
[2017-09-05] MEDS ORDERED: Albuterol-Ipratrop 3 mg / 0.5 (3 ml) UD INH STA ×2 (13:52→19:04)
[2017-09-05] MEDS ORDERED: Morphine 4 MG/ML VIAL IV STA (13:52)
[2017-09-05] MEDS ORDERED: Morphine 4 MG/ML VIAL ONE (14:52)
[2017-09-05] MEDS ORDERED: Albuterol-Ipratrop 3 mg / 0.5 (3 ml) UD ONE ×2 (14:53→18:58)
--- NOTE | 2017-09-05 15:58 | RAD ---
HISTORY: pneumonia, discharged yesterday, fever today COMPARISON: No prior. TECHNIQUE: Chest PA and lateral FINDINGS: LUNGS: An infiltrate is appreciated in the frontal view affecting the mid to inferior left lung zone without obscuring left heart border or the left hemidiaphragm. Is poorly characterized in the lateral view. PLEURA: No significant pleural effusion identified. No pneumothorax apparent. CARDIOVASCULAR: Normal. OSSEOUS STRUCTURES: No significant abnormalities. VISUALIZED UPPER ABDOMEN: Normal. OTHER FINDINGS: None. IMPRESSION: Moderate infiltrate affects the mid to inferior left lung zone as discussed above. It is difficult to differentiate between upper and lower lobes. No pleural effusion bilaterally or right-sided infiltrate.
[2017-09-05 15:59] LABS: BASO % 0.2 % (0.0-2.0); EOS % 0.1 % (0.0-4.0); HEMOGLOBIN 12.8 g/dL (12.0-18.0); LYMPH # 0.7 K/uL (1.0-4.3); LYMPH % 10.4 % (20.0-40.0); MEAN CELL VOLUME 89.5 fl (80.0-94.0); MEAN CORPUSCULAR HEMOGLOBIN 30.7 pg (27.0-31.0); MEAN CORPUSCULAR HGB CONC 34.3 g/dL (33.0-37.0); MEAN PLATELET VOLUME 8.2 fl (7.2-11.7); MONO # 0.6 K/uL (0.0-0.8); MONO % 8.8 % (0.0-10.0); NEUT # 5.4 K/uL (1.8-7.0); NEUT % 80.5 % (50.0-75.0); NRBC % 0.2 % (0.0-0.0); RBC 4.16 Mil/uL (4.40-5.90); RED CELL DISTRIBUTION WIDTH 16.4 % (11.5-14.5); WHITE BLOOD COUNT 6.6 K/uL (4.8-10.8)
[2017-09-05 16:05] LABS: ALB/GLOB RATIO 1.1 (1.0-2.1); ALT/SGPT 77 U/L (21-72); AST/SGOT 64 U/L (17-59); BLOOD UREA NITROGEN 12 mg/dl (9-20); CALCIUM 9.8 mg/dL (8.4-10.2); GFR AFRICAN-AMERICAN > 60; GFR NON-AFRICAN AMERICAN > 60; LIPASE 36 U/L (23-300)
[2017-09-05] MEDS ORDERED: Albuterol HFA 90 mcg/actuation (8 g) IH PRN (20:02)
[2017-09-05] MEDS ORDERED: Sodium Chloride 3% for Inhalation 4 ML VIAL.NEB IH PRN ×2 (20:25→20:39)
[2017-09-05] MEDS ORDERED: Piperacillin/Tazobact 3.375 gm Inj IVPB ONE (20:54)
[2017-09-05] MEDS: Piperacillin/Tazobact 4.5 GM in Sodium Chloride 0.9% 100 ML IVPB SCH (21:04)
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
[2017-09-05] MEDS: oxyCODONE 10 mg Immediate Release Tab PO PRN (23:12)
[2017-09-06] MEDS: Piperacillin/Tazobact 4.5 GM in Sodium Chloride 0.9% 100 ML IVPB SCH ×2 (01:55→12:17)
[2017-09-06] MEDS: oxyCODONE 10 mg Immediate Release Tab PO PRN ×2 (05:08→17:34)
[2017-09-06 09:23] LABS: URIC ACID 6.5 mg/Dl (3.5-8.5)
--- NOTE | 2017-09-06 09:24 | CP.PCM.PN ---
Subjective - Date & Time of Evaluation Date of Evaluation: 09/06/17 Time of Evaluation: 09:17 - Subjective Subjective: Came to evaluate this patient 34 yo with history of sarcoidosis, HTN, arthritis , gout and recent pneumonia for chronic bilateral foot and ankle pains. Patient has been getting Oxycodone immediate release 20mg po Q6H prn and Dilaudid 1mg IV Q4H prn for breakthrough pains. He said it was not sufficient. He was eating breakfast comfortably during the time of evaluation with no signs of being in pain. Objective - Vital Signs/Intake and Output Vital Signs (last 24 hours): Temp Pulse Resp BP Pulse Ox 98.6 F 86 20 118/76 95 09/06/17 08:23 09/06/17 08:23 09/06/17 08:23 09/06/17 08:23 09/06/17 08:23 - Medications Medications: Current Medications Albuterol (Ventolin Hfa 90 Mcg/Actuation (8 G)) 2 puff IH Q4H PRN PRN Reason: Shortness of Breath Albuterol/Ipratropium (Duoneb 3 Mg/0.5 Mg (3 Ml) Ud) 3 ml INH RQ6 PRN PRN Reason: Shortness of Breath Alprazolam (Xanax) 0.5 mg PO Q12 PRN PRN Reason: Anxiety Amlodipine Besylate (Norvasc) 10 mg PO DAILY GARY Enoxaparin Sodium (Lovenox) 40 mg SC DAILY GARY PRN Reason: Protocol Folic Acid (Folic Acid) 1 mg PO DAILY [facility] Hydromorphone HCl (Dilaudid) 1 mg IVP Q4 PRN PRN Reason: Pain, severe (8-10) Last Admin: 09/06/17 06:36 Dose: 1 mg Vancomycin HCl 1,000 mg/ (Sodium Chloride) 250 mls @ 250 mls/hr IVPB Q12H GARY PRN Reason: Protocol Last Admin: 09/05/17 21:42 Dose: 250 mls/hr Piperacillin Sod/Tazobactam (Sod 4.5 gm/ Sodium Chloride) 100 mls @ 100 mls/hr IVPB Q8 GARY PRN Reason: Protocol Last Admin: 09/06/17 01:55 Dose: 100 mls/hr Oxycodone HCl (Oxycodone Immediate Release Tab) 20 mg PO Q6H PRN PRN Reason: Pain, severe (8-10) Last Admin: 09/06/17 05:08 Dose: 20 mg Prednisone (Prednisone Tab) 20 mg PO DAILY [facility] Thiamine HCl (Vitamin B1 Tab) 100 mg PO DAILY GARY - Labs Labs: 09/05/17 15:40 09/05/17 15:40 Assessment and Plan - Assessment and Plan (Free Text) Assessment: Chronic bilateral foot and ankle pains etiology under workup. Possible narcotic tolerance vs dependence Plan: Continue Oxycodone. Will change dilaudid to 1mg IV Q3H prn Will discuss this case with Dr. Priest and for follow up.
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
[2017-09-06] MEDS: Enoxaparin 40 mg Syringe SC SCH (09:52)
--- NOTE | 2017-09-06 15:36 | CP.PCM.PN ---
Subjective - Date & Time of Evaluation Date of Evaluation: 09/06/17 Time of Evaluation: 16:52 - Subjective Subjective: 37 year old male patient with PMHx of sarcoidosis, arthritis, HTN and gout was seen and evaluated at bedside for b/l foot and ankle pain. Patient is AAOx3 and is in NAD. Patient reports that he has foot pain today but does not mention any pain at the ankle joint. Denies n/v/c/cp/weakness or dizziness. Patient denies of having any other pedal complains at this time. Objective - Vital Signs/Intake and Output Vital Signs (last 24 hours): Temp Pulse Resp BP Pulse Ox 98.6 F 86 20 118/76 95 09/06/17 08:23 09/06/17 09:53 09/06/17 08:23 09/06/17 09:53 09/06/17 08:23 - Medications Medications: Current Medications Albuterol (Ventolin Hfa 90 Mcg/Actuation (8 G)) 2 puff IH Q4H PRN PRN Reason: Shortness of Breath Albuterol/Ipratropium (Duoneb 3 Mg/0.5 Mg (3 Ml) Ud) 3 ml INH RQ6 PRN PRN Reason: Shortness of Breath Alprazolam (Xanax) 0.5 mg PO Q12 PRN PRN Reason: Anxiety Amlodipine Besylate (Norvasc) [address] [facility] Last Admin: 09/06/17 09:53 Dose: 10 mg Azithromycin (Zithromax) [address] [facility] PRN Reason: Protocol Stop: 09/10/17 09:01 Enoxaparin Sodium (Lovenox) [address] [facility] PRN Reason: Protocol Last Admin: 09/06/17 09:52 Dose: 40 mg Folic Acid (Folic Acid) [address] [facility] Last Admin: 09/06/17 09:53 Dose: 1 mg Hydromorphone HCl (Dilaudid) 1 mg IVP Q3 PRN PRN Reason: Pain, moderate (4-7) Last Admin: 09/06/17 13:27 Dose: 1 mg Oxycodone HCl (Oxycodone Immediate Release Tab) 20 mg PO Q6H PRN PRN Reason: Pain, severe (8-10) Last Admin: 09/06/17 05:08 Dose: 20 mg Prednisone (Prednisone Tab) [address] [facility] Last Admin: 09/06/17 09:53 Dose: 20 mg Thiamine HCl (Vitamin B1 Tab) [address] [facility] Last Admin: 09/06/17 09:52 Dose: 100 mg - Labs Labs: 09/05/17 15:40 09/05/17 15:40 - Constitutional Appears: Well, Non-toxic, No Acute Distress - Extremities Exam Additional comments: B/L lower extremity exam: VASC- DP/PT pulses are fully palpable b/l, cap refill < 3 sec to all digits x 10 , increased warmth noted to medial aspect 1st MTPJ b/l, edema noted to medial aspect forefoot b/l DERM- no open wounds, localized erythema is noted to medial aspect hallux MTPJ b /l, no ascending cellulitis NEURO- gross and protective pedal sensation is intact MSK- Pain on Palpation noted to medial aspect hallux MTPJ b/l with pain on ROM b /l, pt able to wiggle all toes freely, neg calf pain on compression b/l, MMT 5/ 5 in all directions b/l - Neurological Exam Neurological Exam: Alert, Awake, Oriented x3 - Psychiatric Exam Psychiatric exam: Normal Affect, Normal Mood Assessment and Plan - Assessment and Plan (Free Text) Assessment: 37 year old male patient with PMHx of sarcoidosis, arthritis, HTN and gout was evaluated for b/l foot possibly secondary to gout Plan: Patient seen and evaluated at bedside with attending Dr. Carrillo Labs, vitals and charts reviewed - afebrile, no leukocytosis X-rays ordered - pending Suspicious of gout - will start patient on indomethacin 50 mg TID Patient has no elevated WBC and patient has remained afebrile - less likely septic arthritis If no relief with gout treatment, will aspirate the joint for further evaluation Thank you for the podiatry consult and allowing to take part in patient care Podiatry will follow patient while in-house
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
[2017-09-07] MEDS: oxyCODONE 10 mg Immediate Release Tab PO PRN ×2 (00:57→07:40)
[2017-09-07] MEDS: Enoxaparin 40 mg Syringe SC SCH (08:30)
--- NOTE | 2017-09-07 08:44 | CP.PCM.PN ---
Subjective - Date & Time of Evaluation Date of Evaluation: 09/07/17 Time of Evaluation: 08:15 - Subjective Subjective: Progress note - Dr. Carrillo 37 year old male patient with PMHx of sarcoidosis, arthritis, HTN and gout was seen and evaluated at bedside for b/l foot and ankle pain. Patient is AAOx3 and is in NAD. Patient reports that the foot pain has gotten little better today. Reports that he did not receive indomethacin yet as discussed with him yesterday Denies n/v/c/cp/weakness or dizziness. Patient denies of having any other pedal complains at this time. Objective - Vital Signs/Intake and Output Vital Signs (last 24 hours): Temp Pulse Resp BP Pulse Ox 97.7 F 75 18 113/74 95 09/07/17 08:16 09/07/17 08:30 09/07/17 08:16 09/07/17 08:30 09/07/17 08:16 - Medications Medications: Current Medications Albuterol (Ventolin Hfa 90 Mcg/Actuation (8 G)) 2 puff IH Q4H PRN PRN Reason: Shortness of Breath Albuterol/Ipratropium (Duoneb 3 Mg/0.5 Mg (3 Ml) Ud) 3 ml INH RQ6 PRN PRN Reason: Shortness of Breath Alprazolam (Xanax) 0.5 mg PO Q12 PRN PRN Reason: Anxiety Amlodipine Besylate (Norvasc) 10 mg PO DAILY [facility] Last Admin: 09/07/17 08:30 Dose: 10 mg Azithromycin (Zithromax) 250 mg PO DAILY [facility] PRN Reason: Protocol Stop: 09/10/17 09:01 Last Admin: 09/07/17 08:30 Dose: 250 mg Enoxaparin Sodium (Lovenox) 40 mg SC DAILY [facility] PRN Reason: Protocol Last Admin: 09/07/17 08:30 Dose: 40 mg Folic Acid (Folic Acid) 1 mg PO DAILY [facility] Last Admin: 09/07/17 08:30 Dose: 1 mg Hydromorphone HCl (Dilaudid) 1 mg IVP Q3 PRN PRN Reason: Pain, moderate (4-7) Last Admin: 09/07/17 06:34 Dose: 1 mg Indomethacin (Indocin) 50 mg PO TID [facility] Last Admin: 09/07/17 08:30 Dose: 50 mg Oxycodone HCl (Oxycodone Immediate Release Tab) 20 mg PO Q6H PRN PRN Reason: Pain, severe (8-10) Last Admin: 09/07/17 07:40 Dose: 20 mg Prednisone (Prednisone Tab) 20 mg PO DAILY [facility] Last Admin: 09/07/17 08:31 Dose: 20 mg Thiamine HCl (Vitamin B1 Tab) 100 mg PO DAILY [facility] Last Admin: 09/07/17 08:30 Dose: 100 mg - Labs Labs: 09/05/17 15:40 09/05/17 15:40 - Constitutional Appears: Well, Non-toxic, No Acute Distress - Extremities Exam Additional comments: B/L lower extremity exam: VASC- DP/PT pulses are fully palpable b/l, cap refill < 3 sec to all digits x 10 , increased warmth noted to medial aspect 1st MTPJ b/l, edema noted to medial aspect forefoot b/l DERM- no open wounds, localized erythema is noted to medial aspect hallux MTPJ b /l, no ascending cellulitis NEURO- gross and protective pedal sensation is intact MSK- Pain on Palpation noted to medial aspect hallux MTPJ b/l with pain on ROM b /l, pt able to wiggle all toes freely, neg calf pain on compression b/l, MMT 5/ 5 in all directions b/l - Neurological Exam Neurological Exam: Alert, Awake, Oriented x3 - Psychiatric Exam Psychiatric exam: Normal Affect, Normal Mood Assessment and Plan - Assessment and Plan (Free Text) Assessment: 37 year old male patient with PMHx of sarcoidosis, arthritis, HTN and gout was evaluated for b/l foot possibly secondary to gout vs. sarcoidosis manifestation Plan: Patient seen and evaluated Discussed patient in details with attending Dr. Carrillo Labs, vitals and charts reviewed - afebrile, no leukocytosis ESR: 61 UA: 6.5 X-rays ordered - pending Suspicious of gout - continue patient on indomethacin 50 mg TID (First dose this morning) Patient has no elevated WBC and patient has remained afebrile - less likely septic arthritis If no relief with gout treatment, will aspirate the joint for further evaluation Podiatry will follow patient while in-house
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
[2017-09-07] MEDS: Albuterol-Ipratrop 3 mg / 0.5 (3 ml) UD INH PRN ×2 (09:22→21:30)
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
[2017-09-07] MEDS: oxyCODONE 10 mg ER Tab (oxyCONTIN) PO SCH ×2 (10:27→21:05)
--- NOTE | 2017-09-07 12:10 | RAD ---
PROCEDURE: Bilateral Feet Radiographs. HISTORY: b/l pain in feet COMPARISON: None. FINDINGS: BONES: There is no fracture or destructive bony lesion identified bilaterally. Degenerative joint space narrowing seen at right interphalangeal joint great toe. No subluxation or dislocation identified. JOINTS: As above. SOFT TISSUES: Unremarkable bilaterally. OTHER FINDINGS: None. IMPRESSION: No acute fracture, dislocation or destructive bony lesion identified bilaterally. degenerative changes right great toe.
[2017-09-08] MEDS: Enoxaparin 40 mg Syringe SC SCH (08:32)
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
[2017-09-08] MEDS: Albuterol-Ipratrop 3 mg / 0.5 (3 ml) UD INH PRN ×2 (09:30→14:17)
[2017-09-08] MEDS: oxyCODONE 10 mg ER Tab (oxyCONTIN) PO SCH ×2 (09:43→21:36)
--- NOTE | 2017-09-08 13:51 | CP.PCM.PN ---
Subjective - Date & Time of Evaluation Date of Evaluation: 09/08/17 Time of Evaluation: 11:00 - Subjective Subjective: Podiatry Progress note - Dr. Carrillo 37 year old male patient with PMHx of sarcoidosis, arthritis, HTN and gout was seen and evaluated at bedside for b/l foot and ankle pain. Patient is AAOx3 and is in NAD. Paient reports that he started Indomethacin last night and his foot pains have improved. Denies n/v/c/cp/weakness or dizziness. Patient denies of having any other pedal complains at this time. Objective - Vital Signs/Intake and Output Vital Signs (last 24 hours): Temp Pulse Resp BP Pulse Ox 97.6 F 71 20 118/79 94 L 09/08/17 08:23 09/08/17 08:33 09/08/17 08:23 09/08/17 08:33 09/08/17 08:23 - Medications Medications: Current Medications Albuterol (Ventolin Hfa 90 Mcg/Actuation (8 G)) 2 puff IH Q4H PRN PRN Reason: Shortness of Breath Albuterol/Ipratropium (Duoneb 3 Mg/0.5 Mg (3 Ml) Ud) 3 ml INH RQ6 PRN PRN Reason: Shortness of Breath Last Admin: 09/08/17 09:30 Dose: 3 ml Alprazolam (Xanax) 0.5 mg PO Q12 PRN PRN Reason: Anxiety Last Admin: 09/08/17 02:49 Dose: 0.5 mg Amlodipine Besylate (Norvasc) 10 mg PO DAILY [facility] Last Admin: 09/08/17 08:33 Dose: 10 mg Azithromycin (Zithromax) 250 mg PO DAILY [facility] PRN Reason: Protocol Stop: 09/10/17 09:01 Last Admin: 09/08/17 08:32 Dose: 250 mg Duloxetine HCl (Cymbalta) 30 mg PO DAILY [facility] Last Admin: 09/08/17 08:32 Dose: 30 mg Enoxaparin Sodium (Lovenox) 40 mg SC DAILY [facility] PRN Reason: Protocol Last Admin: 09/08/17 08:32 Dose: 40 mg Folic Acid (Folic Acid) 1 mg PO DAILY [facility] Last Admin: 09/08/17 08:32 Dose: 1 mg Hydromorphone HCl (Dilaudid) 2 mg IVP Q3 PRN PRN Reason: Pain, severe (8-10) Last Admin: 09/08/17 11:43 Dose: 2 mg Indomethacin (Indocin) 50 mg PO TID [facility] Last Admin: 09/08/17 12:04 Dose: 50 mg Oxycodone HCl (Oxycontin Extended Release Tab) 30 mg PO Q12 [facility] Stop: 09/10/17 10:16 Last Admin: 09/08/17 09:43 Dose: 30 mg Prednisone (Prednisone Tab) 20 mg PO DAILY [facility] Last Admin: 09/08/17 08:33 Dose: 20 mg Pregabalin (Lyrica) 50 mg PO TID [facility] Last Admin: 09/08/17 12:04 Dose: 50 mg Thiamine HCl (Vitamin B1 Tab) 100 mg PO DAILY [facility] Last Admin: 09/08/17 08:32 Dose: 100 mg - Labs Labs: 09/05/17 15:40 09/05/17 15:40 - Constitutional Appears: Well, Non-toxic, No Acute Distress - Extremities Exam Extremities Exam: absent: Calf Tenderness Additional comments: B/L lower extremity exam: VASC- DP/PT pulses are fully palpable b/l, cap refill < 3 sec to all digits x 10 , increased warmth noted to medial aspect 1st MTPJ b/l, edema noted to medial aspect forefoot b/l L hallux > R hallux DERM- no open wounds, localized erythema is noted to medial aspect hallux MTPJ b /l, no ascending cellulitis NEURO- gross and protective pedal sensation is intact MSK- Pain on Palpation noted to medial aspect hallux MTPJ b/l with pain on ROM b /l, pt able to wiggle all toes freely, neg calf pain on compression b/l, MMT 5/ 5 in all directions b/l - Psychiatric Exam Psychiatric exam: Normal Affect, Normal Mood - Skin Skin Exam: Dry, Intact, Normal Color, Warm Assessment and Plan - Assessment and Plan (Free Text) Assessment: 37 year old male patient with PMHx of sarcoidosis, arthritis, HTN and gout was evaluated for b/l foot possibly secondary to gout vs. sarcoidosis manifestation Plan: Patient seen and evaluated Discussed patient in details with attending Dr. Carrillo Labs, vitals and charts reviewed - afebrile, no leukocytosis ESR: 61 UA: 6.5 X-rays results- no acute fracture, dislocation or destructive bony lesions identified bilaterally. Degenerative changes to right great toe Possible gout exacerbation - continue patient on indomethacin 50 mg TID - pain is less, improved; will continue to monitor - if pain doesn't resolve, may possible aspirate joint to confirm suspicious No elevated WBC and afebrile - less likely septic arthritis Podiatry will follow patient while in-house
--- NOTE | 2017-09-08 13:58 | CP.PCM.PN ---
Subjective - Date & Time of Evaluation Date of Evaluation: 09/08/17 Time of Evaluation: 13:55 - Subjective Subjective: Seated upright in bed, currently conversing with visitors. Appears much more comfortable than when seen the other day. Medical record from [facility] ([facility] was reviewed and documents prior workup for pulmonary sarcoidosis. Treatment had been prednisone and azathioprine. He had been on Humira for plaque psoriasis as well and he felt this had been greatly helpful for his sarcoid symptoms also. He continues to have some degree of congested cough which is productive of yellow sputum. On examination there are significant sonorous rhonchi heard in the mid to lower lung magana mostly left more than right. No audible wheezing. No bronchial breathing or egophony. Sputum for culture has been obtained 2 and sent to laboratory with Gram stain revealing gram-positive cocci and polys. ID is pending. Would continue current medical regimen including azithromycin as well as prednisone 20 mg daily and change the antibiotic if needed when the sputum culture is finalized. He relates to significant improvement in his breathing with the use of DuoNeb and this can be continued at home post discharge. Suggested continued workup post discharge for possible neurosarcoidosis as well as cardiac. Objective - Vital Signs/Intake and Output Vital Signs (last 24 hours): Temp Pulse Resp BP Pulse Ox 97.6 F 71 20 118/79 94 L 09/08/17 08:23 09/08/17 08:33 09/08/17 08:23 09/08/17 08:33 09/08/17 08:23 - Medications Medications: Current Medications Albuterol (Ventolin Hfa 90 Mcg/Actuation (8 G)) 2 puff IH Q4H PRN PRN Reason: Shortness of Breath Albuterol/Ipratropium (Duoneb 3 Mg/0.5 Mg (3 Ml) Ud) 3 ml INH RQ6 PRN PRN Reason: Shortness of Breath Last Admin: 09/08/17 09:30 Dose: 3 ml Alprazolam (Xanax) 0.5 mg PO Q12 PRN PRN Reason: Anxiety Last Admin: 09/08/17 02:49 Dose: 0.5 mg Amlodipine Besylate (Norvasc) 10 mg PO DAILY [facility] Last Admin: 09/08/17 08:33 Dose: 10 mg Azithromycin (Zithromax) 250 mg PO DAILY [facility] PRN Reason: Protocol Stop: 09/10/17 09:01 Last Admin: 09/08/17 08:32 Dose: 250 mg Duloxetine HCl (Cymbalta) 30 mg PO DAILY [facility] Last Admin: 09/08/17 08:32 Dose: 30 mg Enoxaparin Sodium (Lovenox) 40 mg SC DAILY [facility] PRN Reason: Protocol Last Admin: 09/08/17 08:32 Dose: 40 mg Folic Acid (Folic Acid) 1 mg PO DAILY [facility] Last Admin: 09/08/17 08:32 Dose: 1 mg Hydromorphone HCl (Dilaudid) 2 mg IVP Q3 PRN PRN Reason: Pain, severe (8-10) Last Admin: 09/08/17 11:43 Dose: 2 mg Indomethacin (Indocin) 50 mg PO TID [facility] Last Admin: 09/08/17 12:04 Dose: 50 mg Oxycodone HCl (Oxycontin Extended Release Tab) 30 mg PO Q12 [facility] Stop: 09/10/17 10:16 Last Admin: 09/08/17 09:43 Dose: 30 mg Prednisone (Prednisone Tab) 20 mg PO DAILY [facility] Last Admin: 09/08/17 08:33 Dose: 20 mg Pregabalin (Lyrica) 50 mg PO TID [facility] Last Admin: 09/08/17 12:04 Dose: 50 mg Thiamine HCl (Vitamin B1 Tab) 100 mg PO DAILY [facility] Last Admin: 09/08/17 08:32 Dose: 100 mg - Labs Labs: 09/05/17 15:40 09/05/17 15:40 Assessment and Plan (1) Pulmonary sarcoidosis Status: Chronic
[2017-09-09 07:19] LABS: HEMOGLOBIN 12.1 g/dL (12.0-18.0); MEAN CELL VOLUME 88.2 fl (80.0-94.0); MEAN CORPUSCULAR HEMOGLOBIN 31.2 pg (27.0-31.0); MEAN CORPUSCULAR HGB CONC 35.3 g/dL (33.0-37.0); RBC 3.88 Mil/uL (4.40-5.90); RED CELL DISTRIBUTION WIDTH 16.6 % (11.5-14.5); WHITE BLOOD COUNT 8.9 K/uL (4.8-10.8)
[2017-09-09 07:30] LABS: BLOOD UREA NITROGEN 8 mg/dl (9-20); CALCIUM 9.9 mg/dL (8.4-10.2); GFR AFRICAN-AMERICAN > 60; GFR NON-AFRICAN AMERICAN > 60
[2017-09-09] MEDS: oxyCODONE 10 mg ER Tab (oxyCONTIN) PO SCH ×3 (09:28→22:51)
[2017-09-09] MEDS: Enoxaparin 40 mg Syringe SC SCH (09:29)
--- NOTE | 2017-09-09 09:45 | CP.PCM.PN ---
Subjective - Date & Time of Evaluation Date of Evaluation: 09/09/17 Time of Evaluation: 09:30 - Subjective Subjective: Patient seen and examined at bedside. Reports bilateral foot pain persists, he was able to get out of bed and ambulate to the shower. Denies chest pain, dizziness or weakness. Comfortable on 2L supplemental oxygen via nasal cannula. Tolerating PO diet. Objective - Vital Signs/Intake and Output Vital Signs (last 24 hours): Temp Pulse Resp BP Pulse Ox 98.2 F 75 20 122/67 94 L 09/09/17 08:21 09/09/17 08:21 09/09/17 08:21 09/09/17 09:30 09/09/17 08:21 - Medications Medications: Current Medications Albuterol (Ventolin Hfa 90 Mcg/Actuation (8 G)) 2 puff IH Q4H PRN PRN Reason: Shortness of Breath Albuterol/Ipratropium (Duoneb 3 Mg/0.5 Mg (3 Ml) Ud) 3 ml INH RQ6 PRN PRN Reason: Shortness of Breath Last Admin: 09/08/17 14:17 Dose: 3 ml Alprazolam (Xanax) 0.5 mg PO Q12 PRN PRN Reason: Anxiety Last Admin: 09/09/17 02:48 Dose: 0.5 mg Amlodipine Besylate (Norvasc) 10 mg PO DAILY [facility] Last Admin: 09/09/17 09:30 Dose: 10 mg Azithromycin (Zithromax) 250 mg PO DAILY [facility] PRN Reason: Protocol Stop: 09/10/17 09:01 Last Admin: 09/09/17 09:30 Dose: 250 mg Duloxetine HCl (Cymbalta) 30 mg PO DAILY [facility] Last Admin: 09/09/17 09:31 Dose: 30 mg Enoxaparin Sodium (Lovenox) 40 mg SC DAILY [facility] PRN Reason: Protocol Last Admin: 09/09/17 09:29 Dose: 40 mg Folic Acid (Folic Acid) 1 mg PO DAILY [facility] Last Admin: 09/09/17 09:30 Dose: 1 mg Home Med (Finasteride [Propecia]) 1 mg PO DAILY [facility] Hydromorphone HCl (Dilaudid) 1 mg IVP Q3 PRN PRN Reason: Pain, severe (8-10) Indomethacin (Indocin) 50 mg PO TID [facility] Last Admin: 09/09/17 09:31 Dose: 50 mg Oxycodone HCl (Oxycontin Extended Release Tab) 30 mg PO Q12 [facility] Stop: 09/10/17 10:16 Last Admin: 09/09/17 09:28 Dose: 30 mg Prednisone (Prednisone Tab) 20 mg PO DAILY [facility] Last Admin: 09/09/17 09:30 Dose: 20 mg Pregabalin (Lyrica) 50 mg PO TID [facility] Last Admin: 09/09/17 09:28 Dose: 50 mg Thiamine HCl (Vitamin B1 Tab) 100 mg PO DAILY [facility] Last Admin: 09/09/17 09:30 Dose: 100 mg - Labs Labs: 09/09/17 05:20 09/09/17 05:20 - Constitutional Appears: No Acute Distress - Head Exam Head Exam: ATRAUMATIC, NORMOCEPHALIC - Eye Exam Eye Exam: EOMI - ENT Exam ENT Exam: Mucous Membranes Moist - Neck Exam Neck Exam: Full ROM - Respiratory Exam Respiratory Exam: Rhonchi (diffuse, left greater than right) - Cardiovascular Exam Cardiovascular Exam: REGULAR RHYTHM, +S1, +S2 - GI/Abdominal Exam GI & Abdominal Exam: Soft (obese), Normal Bowel Sounds - Extremities Exam Extremities Exam: Full ROM. absent: Pedal Edema - Neurological Exam Neurological Exam: Alert, Awake, CN II-XII Intact, Oriented x3 - Psychiatric Exam Psychiatric exam: Normal Affect, Normal Mood - Skin Skin Exam: Dry, Normal Color, Warm Assessment and Plan - Assessment and Plan (Free Text) Assessment: 37 yr old M admitted for acute sarcoidosis flare up. Patient has controlled hypertension, sarcoidosis and recent discharge from [facility]. Plan: 1. Acute Sarcoidosis Flare up - improving, as per patient, diagnosed in 06/2017 via bronchoscopy - continue home medication, on prednisone 20 mg PO daily - pulmonology consulted, Dr. Murphy, recommendations appreciated, [facility] records reviewed (tx with Azathioprine and Prednisone, (Humira in past for psoriasis)) - CXR: Moderate infiltrate affecting mid to inferior left lung zone - unlikely pneumonia in the presence of autoimmune flare up - azithromycin 250 mg PO daily for prophylaxis day 3/4 today - continue albuterol 2 puff Q4h PRN, duonebs Q6h prn - monitor for acute changes - RA panel: negative, ALYSSA: negative 2. Lower extremity pain - improving, acute gout vs. sarcoidosis flare up - uric acid: 6.5 - continue indomethacin 50 mg PO TID - procalcitonin: 0.11 - b/l foot XR: negative for fracture - Podiatry consulted, Dr. Carrillo, recommendations appreciated 3. Pain Management - pain management consulted, recommendations appreciated - wean dilaudid to 1 mg IV Q3h prn - oxycodone 30 mg PO Q12h tai - cymbalta 30 mg PO daily - pregabablin 50 mg PO TID 4. HTN - chronic, controlled - continue with home medication: Amlodipine 10 mg PO daily - monitor for acute changes 5. Anxiety - continue with Xanax 0.5 mg PO Q12h PRN - monitor for acute changes 6. Prophylactic measures - DVT: Lovenox 40 mg SC daily
[2017-09-09] MEDS: Albuterol-Ipratrop 3 mg / 0.5 (3 ml) UD INH PRN ×2 (09:59→19:17)
--- NOTE | 2017-09-10 07:03 | CP.PCM.PN ---
Subjective - Date & Time of Evaluation Date of Evaluation: 09/10/17 Time of Evaluation: 15:00 - Subjective Subjective: Podiatry Progress note - Dr. Carrillo 37 year old male patient with PMHx of sarcoidosis, arthritis, HTN and gout was seen and evaluated at bedside for b/l foot and ankle pain. Patient is AAOx3 and is in NAD. Paijaquelin reports his pain has improved a lot and is able to walk now. Reports that he still has pain but is managing it well with the medication. Denies F/N/V/C/CP or dizziness. Reports that his breathing is improving today too. Patient denies of having any other pedal complains at this time. Objective - Vital Signs/Intake and Output Vital Signs (last 24 hours): Temp Pulse Resp BP Pulse Ox 98.1 F 61 18 120/73 95 09/10/17 01:03 09/10/17 01:03 09/10/17 01:03 09/10/17 01:03 09/10/17 01:03 - Medications Medications: Current Medications Albuterol (Ventolin Hfa 90 Mcg/Actuation (8 G)) 2 puff IH Q4H PRN PRN Reason: Shortness of Breath Albuterol/Ipratropium (Duoneb 3 Mg/0.5 Mg (3 Ml) Ud) 3 ml INH RQ6 PRN PRN Reason: Shortness of Breath Last Admin: 09/09/17 19:17 Dose: 3 ml Alprazolam (Xanax) 0.5 mg PO Q12 PRN PRN Reason: Anxiety Last Admin: 09/10/17 02:13 Dose: 0.5 mg Amlodipine Besylate (Norvasc) 10 mg PO DAILY [facility] Last Admin: 09/09/17 09:30 Dose: 10 mg Azithromycin (Zithromax) 250 mg PO DAILY [facility] PRN Reason: Protocol Stop: 09/10/17 09:01 Last Admin: 09/09/17 09:30 Dose: 250 mg Duloxetine HCl (Cymbalta) 30 mg PO DAILY [facility] Last Admin: 09/09/17 09:31 Dose: 30 mg Enoxaparin Sodium (Lovenox) 40 mg SC DAILY [facility] PRN Reason: Protocol Last Admin: 09/09/17 09:29 Dose: 40 mg Folic Acid (Folic Acid) 1 mg PO DAILY [facility] Last Admin: 09/09/17 09:30 Dose: 1 mg Home Med (Finasteride [Propecia]) 1 mg PO DAILY [facility] Last Admin: 09/09/17 13:01 Dose: 1 mg Hydromorphone HCl (Dilaudid) 1 mg IVP Q3 PRN PRN Reason: Pain, severe (8-10) Last Admin: 09/10/17 05:37 Dose: 1 mg Indomethacin (Indocin) 50 mg PO TID [facility] Last Admin: 09/09/17 16:34 Dose: 50 mg Oxycodone HCl (Oxycontin Extended Release Tab) 30 mg PO Q12 [facility] Stop: 09/10/17 10:16 Last Admin: 09/09/17 22:51 Dose: 30 mg Prednisone (Prednisone Tab) 20 mg PO DAILY [facility] Last Admin: 09/09/17 09:30 Dose: 20 mg Pregabalin (Lyrica) 50 mg PO TID [facility] Last Admin: 09/09/17 16:34 Dose: 50 mg Thiamine HCl (Vitamin B1 Tab) 100 mg PO DAILY [facility] Last Admin: 09/09/17 09:30 Dose: 100 mg - Labs Labs: 09/09/17 05:20 09/09/17 05:20 - Constitutional Appears: Well, Non-toxic, No Acute Distress - Extremities Exam Additional comments: B/L lower extremity exam: VASC- DP/PT pulses are fully palpable b/l, cap refill < 3 sec to all digits x 10 , increased warmth noted to medial aspect 1st MTPJ b/l, edema noted to medial aspect forefoot b/l L hallux > R hallux - appears to have improved since the admission DERM- no open wounds, localized erythema is noted to medial aspect hallux MTPJ b /l which has improved since the admission, no ascending cellulitis NEURO- gross and protective pedal sensation is intact MSK- mild pain on palpation noted to medial aspect hallux MTPJ b/l with pain on ROM b/l, pt able to wiggle all toes freely, neg calf pain on compression b/l, MMT 5/5 in all directions b/l - Neurological Exam Neurological Exam: Alert, Awake, Oriented x3 - Psychiatric Exam Psychiatric exam: Normal Affect, Normal Mood Assessment and Plan - Assessment and Plan (Free Text) Assessment: 37 year old male patient with PMHx of sarcoidosis, arthritis, HTN and gout was evaluated for b/l foot possibly secondary to gout vs. sarcoidosis manifestation Plan: Patient seen and evaluated Discussed patient in details with attending Dr. Carrillo Labs, vitals and charts reviewed - afebrile, no leukocytosis ESR: 61 UA: 6.5 X-rays results- no acute fracture, dislocation or destructive bony lesions identified bilaterally. Degenerative changes to right great toe Possible gout exacerbation - continue patient on indomethacin 50 mg TID - pain is less, improved; will continue to monitor - if pain doesn't resolve, will perform joint aspiration today No elevated WBC and afebrile - less likely septic arthritis Podiatry will follow patient while in-house
[2017-09-10 07:57] VITALS: RESP 20
[2017-09-10] MEDS: oxyCODONE 10 mg ER Tab (oxyCONTIN) PO SCH (08:46)
[2017-09-10] MEDS: Enoxaparin 40 mg Syringe SC SCH (08:54)
--- NOTE | 2017-09-10 10:23 | CP.PCM.DIS ---
<Sukhjinder Avelar - Last Filed: 09/10/17 14:02> Provider - Provider Date of Admission: 09/07/17 17:05 Attending physician: Cirilo Sullivan MD Time Spent in preparation of Discharge (in minutes): 15 Diagnosis - Discharge Diagnosis (1) Bilateral foot pain Status: Acute (2) Pulmonary sarcoidosis Status: Chronic Priority: High Hospital Course - Lab Results Lab Results: Micro Results 09/05/17 15:00 Blood-Venous Blood Culture - Preliminary NO GROWTH AFTER 4 DAYS 09/05/17 15:20 Blood-Venous Blood Culture - Preliminary NO GROWTH AFTER 4 DAYS 09/06/17 13:00 Sputum Gram Stain - Final 09/06/17 13:00 Sputum Sputum Culture - Final Yeast Species 09/06/17 08:03 Sputum Gram Stain - Final 09/06/17 08:03 Sputum Sputum Culture - Final NORMAL ORAL TONY 09/05/17 21:34 Urine,Clean Catch Urine Culture - Final No Growth (<1,000 CFU/ML) Most Recent Lab Values WBC 8.9 K/uL (4.8-10.8) 09/09/17 05:20 RBC 3.88 Mil/uL (4.40-5.90) L 09/09/17 05:20 Hgb 12.1 g/dL (12.0-18.0) 09/09/17 05:20 Hct 34.2 % (35.0-51.0) L 09/09/17 05:20 MCV 88.2 fl (80.0-94.0) 09/09/17 05:20 MCH 31.2 pg (27.0-31.0) H 09/09/17 05:20 MCHC 35.3 g/dL (33.0-37.0) 09/09/17 05:20 RDW 16.6 % (11.5-14.5) H 09/09/17 05:20 Plt Count 258 K/uL (130-400) 09/09/17 05:20 MPV 8.2 fl (7.2-11.7) 09/05/17 15:40 Neut % (Auto) 80.5 % (50.0-75.0) H 09/05/17 15:40 Lymph % (Auto) 10.4 % (20.0-40.0) L 09/05/17 15:40 [place] % (Auto) 8.8 % (0.0-10.0) 09/05/17 15:40 Eos % (Auto) 0.1 % (0.0-4.0) 09/05/17 15:40 Baso % (Auto) 0.2 % (0.0-2.0) 09/05/17 15:40 Neut # (Auto) 5.4 K/uL (1.8-7.0) 09/05/17 15:40 Lymph # (Auto) 0.7 K/uL (1.0-4.3) L 09/05/17 15:40 [place] # (Auto) 0.6 K/uL (0.0-0.8) 09/05/17 15:40 Eos # (Auto) 0.0 K/uL (0.0-0.7) 09/05/17 15:40 Baso # (Auto) 0.0 K/uL (0.0-0.2) 09/05/17 15:40 ESR 61 mm/hr (0-15) H 09/06/17 06:00 Sodium 142 mmol/l (132-148) 09/09/17 05:20 Potassium 4.3 MMOL/L (3.6-5.0) 09/09/17 05:20 Chloride 97 mmol/L (98-107) L 09/09/17 05:20 Carbon Dioxide 30 mmol/L (22-30) 09/09/17 05:20 Anion Gap 19 (10-20) 09/09/17 05:20 BUN 8 mg/dl (9-20) L 09/09/17 05:20 Creatinine 0.6 mg/dl (0.8-1.5) L 09/09/17 05:20 Est GFR ( Amer) > 60 09/09/17 05:20 Est GFR (Non-Af Amer) > 60 09/09/17 05:20 POC Glucose (mg/dL) 175 mg/dL (65-110) H 09/07/17 11:04 Random Glucose 98 mg/dL (75-110) 09/09/17 05:20 Hemoglobin A1c 5.2 % (4.2-6.5) 09/06/17 06:00 Uric Acid 6.5 mg/Dl (3.5-8.5) 09/05/17 08:30 Calcium 9.9 mg/dL (8.4-10.2) 09/09/17 05:20 Total Bilirubin 2.1 mg/dl (0.2-1.3) H 09/05/17 15:40 AST 64 U/L (17-59) H 09/05/17 15:40 ALT 77 U/L (21-72) H D 09/05/17 15:40 Alkaline Phosphatase 86 U/L (38-126) 09/05/17 15:40 Total Creatine Kinase 29 U/L (55-170) L 09/06/17 06:00 Total Protein 7.6 G/DL (6.3-8.2) 09/05/17 15:40 Albumin 4.0 g/dL (3.5-5.0) 09/05/17 15:40 Globulin 3.5 gm/dL (2.2-3.9) 09/05/17 15:40 Albumin/Globulin Ratio 1.1 (1.0-2.1) 09/05/17 15:40 Lipase 36 U/L (23-300) 09/05/17 15:40 Vitamin B12 250 pg/mL (239-931) 09/05/17 08:30 Folate > 20.0 ng/mL 09/05/17 06:00 Procalcitonin 0.11 NG/ML (0.19-0.49) L 09/05/17 06:00 Rheum Arthritis Panel Negative (NEGATIVE) 09/06/17 06:00 ALYSSA Nuclear Membr Pat Negative (Negative) 09/06/17 06:00 Influenza Typ A,B (EIA) Negative for flu a/b (NEGATIVE) 09/05/17 15:40 - Hospital Course Hospital Course: The patient is a 37 y/o man w/ pmh of sarcoidosis, HTN, and recent discharge from [facility] is admitted for acute sarcoidosis flare up. The patient on admission had tachycardia, CBC WNL, CMP WNL, neg ALYSSA, neg Rheum panel, CXR showed moderate infiltrate affecting mid to inferior left lung zone, b/l foot XR showed no fracture. The patient was seen by podiatry, pulmonology, and pain management. The patient's pain was addressed and showed improvement. The patient had extensive work-up for sarcoidosis during a previous admission at [facility]. Patient showed progressive improvement and reports he has specialists for his current condition. The patient has been seen, examined, and deemed medically fit for discharge home. The patient will be discharged w/ duonebs and nebulizer to help with intermittent dyspnea. The patient is to follow up w / Rhemuatologist, [facility] [employer], pain management, and Dr. Sullivan. Discharge Exam - Head Exam Head Exam: ATRAUMATIC, NORMAL INSPECTION, NORMOCEPHALIC - Eye Exam Eye Exam: Normal appearance - ENT Exam ENT Exam: Mucous Membranes Moist - Neck Exam Neck exam: Full Rom - Respiratory Exam Respiratory Exam: Rhonchi. absent: Decreased Breath Sounds, Wheezes, Respiratory Distress - Cardiovascular Exam Cardiovascular Exam: REGULAR RHYTHM. absent: Tachycardia - GI/Abdominal Exam GI & Abdominal Exam: Normal Bowel Sounds, Soft. absent: Distended, Tenderness - Extremities Exam Extremities exam: normal capillary refill, pedal pulses present Additional comments: mild tenderness of the feet bilaterally at the medial aspect of the of the feet from 1st digit to midfoot - Neurological Exam Neurological exam: Alert, Oriented x3 Additional comments: ambulates w/ cane - Skin Skin Exam: Dry, Intact, Normal Color, Warm Discharge Plan - Discharge Medications Prescriptions: Albuterol/Ipratropium [Duoneb 3 MG/3 Ml-0.5 MG/3 Ml 3 Ml] 3 ml IH Q4 30 Days # 120 neb Mask, Face [Nebulizer Aerosol Mask Adult] 1 dev XX PRN PRN #1 dev PRN Reason: Shortness Of Breath Nebulizer [Aeroeclipse II] 1 each MC Q4 30 Days #1 each - Follow Up Plan Condition: STABLE Disposition: HOME/ ROUTINE Instructions: Gout (DC) Additional Instructions: appointment on sundaysep 12 at 3:30pm with Dr. Sullivan Referrals: Cirilo Sullivan MD [Family Provider] - <Cirilo Sullivan - Last Filed: 09/11/17 13:24> Provider - Provider Date of Admission: 09/07/17 17:05 Attending physician: Cirilo Sullivan MD Hospital Course - Lab Results Lab Results: Micro Results 09/05/17 15:00 Blood-Venous Blood Culture - Final NO GROWTH AFTER 5 DAYS 09/05/17 15:00 Blood-Venous Gram Stain - Final TEST NOT PERFORMED 09/05/17 15:20 Blood-Venous Blood Culture - Final NO GROWTH AFTER 5 DAYS 09/05/17 15:20 Blood-Venous Gram Stain - Final TEST NOT PERFORMED 09/06/17 13:00 Sputum Gram Stain - Final 09/06/17 13:00 Sputum Sputum Culture - Final Yeast Species 09/06/17 08:03 Sputum Gram Stain - Final 09/06/17 08:03 Sputum Sputum Culture - Final NORMAL ORAL TONY 09/05/17 21:34 Urine,Clean Catch Urine Culture - Final No Growth (<1,000 CFU/ML) Most Recent Lab Values WBC 8.9 K/uL (4.8-10.8) 09/09/17 05:20 RBC 3.88 Mil/uL (4.40-5.90) L 09/09/17 05:20 Hgb 12.1 g/dL (12.0-18.0) 09/09/17 05:20 Hct 34.2 % (35.0-51.0) L 09/09/17 05:20 MCV 88.2 fl (80.0-94.0) 09/09/17 05:20 MCH 31.2 pg (27.0-31.0) H 09/09/17 05:20 MCHC 35.3 g/dL (33.0-37.0) 09/09/17 05:20 RDW 16.6 % (11.5-14.5) H 09/09/17 05:20 Plt Count 258 K/uL (130-400) 09/09/17 05:20 MPV 8.2 fl (7.2-11.7) 09/05/17 15:40 Neut % (Auto) 80.5 % (50.0-75.0) H 09/05/17 15:40 Lymph % (Auto) 10.4 % (20.0-40.0) L 09/05/17 15:40 [place] % (Auto) 8.8 % (0.0-10.0) 09/05/17 15:40 Eos % (Auto) 0.1 % (0.0-4.0) 09/05/17 15:40 Baso % (Auto) 0.2 % (0.0-2.0) 09/05/17 15:40 Neut # (Auto) 5.4 K/uL (1.8-7.0) 09/05/17 15:40 Lymph # (Auto) 0.7 K/uL (1.0-4.3) L 09/05/17 15:40 [place] # (Auto) 0.6 K/uL (0.0-0.8) 09/05/17 15:40 Eos # (Auto) 0.0 K/uL (0.0-0.7) 09/05/17 15:40 Baso # (Auto) 0.0 K/uL (0.0-0.2) 09/05/17 15:40 ESR 61 mm/hr (0-15) H 09/06/17 06:00 Sodium 142 mmol/l (132-148) 09/09/17 05:20 Potassium 4.3 MMOL/L (3.6-5.0) 09/09/17 05:20 Chloride 97 mmol/L (98-107) L 09/09/17 05:20 Carbon Dioxide 30 mmol/L (22-30) 09/09/17 05:20 Anion Gap 19 (10-20) 09/09/17 05:20 BUN 8 mg/dl (9-20) L 09/09/17 05:20 Creatinine 0.6 mg/dl (0.8-1.5) L 09/09/17 05:20 Est GFR ( Amer) > 60 09/09/17 05:20 Est GFR (Non-Af Amer) > 60 09/09/17 05:20 POC Glucose (mg/dL) 175 mg/dL (65-110) H 09/07/17 11:04 Random Glucose 98 mg/dL (75-110) 09/09/17 05:20 Hemoglobin A1c 5.2 % (4.2-6.5) 09/06/17 06:00 Uric Acid 6.5 mg/Dl (3.5-8.5) 09/05/17 08:30 Calcium 9.9 mg/dL (8.4-10.2) 09/09/17 05:20 Total Bilirubin 2.1 mg/dl (0.2-1.3) H 09/05/17 15:40 AST 64 U/L (17-59) H 09/05/17 15:40 ALT 77 U/L (21-72) H D 09/05/17 15:40 Alkaline Phosphatase 86 U/L (38-126) 09/05/17 15:40 Total Creatine Kinase 29 U/L (55-170) L 09/06/17 06:00 Total Protein 7.6 G/DL (6.3-8.2) 09/05/17 15:40 Albumin 4.0 g/dL (3.5-5.0) 09/05/17 15:40 Globulin 3.5 gm/dL (2.2-3.9) 09/05/17 15:40 Albumin/Globulin Ratio 1.1 (1.0-2.1) 09/05/17 15:40 Lipase 36 U/L (23-300) 09/05/17 15:40 Vitamin B12 250 pg/mL (239-931) 09/05/17 08:30 Folate > 20.0 ng/mL 09/05/17 06:00 Procalcitonin 0.11 NG/ML (0.19-0.49) L 09/05/17 06:00 Rheum Arthritis Panel Negative (NEGATIVE) 09/06/17 06:00 ALYSSA Nuclear Membr Pat Negative (Negative) 09/06/17 06:00 Influenza Typ A,B (EIA) Negative for flu a/b (NEGATIVE) 09/05/17 15:40 Attending/Attestation - Attestation I have personally seen and examined this patient.: Yes I have fully participated in the care of the patient.: Yes I have reviewed all pertinent clinical information, including history, physical exam and plan: Yes
[2017-09-10 16:11] VITALS: BP 120/79; PULSE 66; TEMP 97.7; O2SAT 95
--- NOTE | 2017-09-13 08:09 | PQF SEPSIS ---
Dr. Sullivan History and Physical documented "sepsis secondary to hcap." Sepsis however is not mentioned in Discharge Summary. After study was diagnosis of sepsis ruled in or out? This form is a permanent part of the medical record Clarification of your documentation is requested to better reflect the severity of illness and intensity of treatment of your patient. Indicators present [] Temp < 96.8 or > 100.4 [] WBC count > 12,000/mm3 or <000/mm3 or 10% immature neutrophils [] Heart Rate > 90 [] Respiratory Rate > 20 [] Fever or hypothermia [] Chills [] Positive blood cultures [] Hypotension [] Metabolic acidosis (Elevated lactate level, anion gap or reduced blood pH) [] Acute confusion /Altered Mental Status [] Shock [] Other: [] Location in the medical record that reflects the above clinical findings: [] Treatment Provided: [] PHYSICIAN'S RESPONSE Based on your medical judgment of the clinical indicators outlined above, are you treating this patient for a known or suspected: [] Sepsis / Septicemia Please specify organism if known [] [] SIRS (Systemic Inflammatory Response Syndrome) [] Severe Sepsis (Sepsis with Associated Organ Dysfunction) [] Fever of Unknown Origin [] Other, please indicate: [] [] If Unable to Determine, please check the box, sign and date. Present On Admission (POA) Indicator: [] Present at the time of admission [] Not present at the time of admission [] Clinically Undetermined In responding to this query, please exercise your independent professional judgment. The fact that a question is asked does not imply that any particular answer is desired or expected. Thank you for your clarification on this documentation. If you have any questions please call:[ ] * Thank you, [ ]Madhavi Davis label rewinder ELDON
== END 2017-09-10 16:25 | disposition home or self-care (01) | DRG 197 ==
LOC: H.ER 12:19 → H.ERHOLD 18:24 → H.MEDSURG1 23:23 → OBSVTOIN 09-07 17:05
PROVIDERS: ADMIT Family Medicine; ATTEND Family Medicine
DX: D86.0 Sarcoidosis of lung (principal); R65.10 Systemic inflammatory response syndrome (SIRS) of non-infectious origin without acute organ dysfunction; L40.50 Arthropathic psoriasis, unspecified; G89.29 Other chronic pain; M06.9 Rheumatoid arthritis, unspecified; I10 Essential (primary) hypertension; M10.9 Gout, unspecified; Z87.891 Personal history of nicotine dependence; M54.10 Radiculopathy, site unspecified; M25.571 Pain in right ankle and joints of right foot; M25.572 Pain in left ankle and joints of left foot; F41.9 Anxiety disorder, unspecified

== ENCOUNTER 2017-09-18 22:24 | Emergency (ER) | payer SELFPAY ==
[2017-09-18 22:34] VITALS: BP 134/84; PULSE 88; RESP 16; TEMP 98.5; O2SAT 98; BMI 31.0
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
--- NOTE | 2017-09-19 00:13 | CT ---
EXAM: CT Head Without Intravenous Contrast EXAM DATE/TIME: 09/18/2017 10:49 PM CLINICAL HISTORY: 37 years old, male; Injury or trauma; Fall; Initial encounter; Abrasion and blunt trauma (contusions or hematomas); Forehead; Additional info: ETOH, head injury TECHNIQUE: Axial computed tomography images of the head/brain without intravenous contrast. All CT scans at this facility use one or more dose reduction techniques, viz.: automated exposure control; ma/kV adjustment per patient size (including targeted exams where dose is matched to indication; i.e. head); or iterative reconstruction technique. Coronal and sagittal reformatted images were created and reviewed. COMPARISON: CT HEAD OR BRAIN W/O CONT 2012-10-06 08:30 FINDINGS: Artifacts: Streak artifact degrades image quality.Motion artifact degrades image quality. Brain: There is mild prominence of sulci, gyri and ventricles. There is no midline shift. There are no intra-axial or extra-axial mass lesions or areas of hemorrhage. There are no abnormal fluid collections. Mas-white differentiation is maintained. Ventricles: See above. Bones: Cranial vault is intact. Soft tissues: There is minimal right frontal scalp bruising Sinuses: There is no acute sinusitis. There are retention cysts/polyps in the maxillary sinuses. Ears and mastoids: Middle ears and mastoids are unremarkable Orbits: Orbital contents are unremarkable. IMPRESSION: Right frontal scalp bruising, no acute intracranial abnormality
--- NOTE | 2017-09-19 05:48 | RAD ---
EXAM: XR Left Ankle Complete, 3 or More Views CLINICAL HISTORY: 37 years old, male; Pain and injury or trauma; Fall; Initial encounter; Swelling (edema); Ankle; Left; Additional info: Fall, pain TECHNIQUE: Frontal, lateral and oblique views of the left ankle. COMPARISON: CR - ANKLE LEFT 3 VIEWS ROUTINE 2015-12-17 22:01 FINDINGS: Bones/joints: Unremarkable. No acute fracture. No dislocation. Soft tissues: Unremarkable. IMPRESSION: No evidence of an acute abnormality.
== END 2017-09-19 06:37 | disposition home or self-care (01) ==
LOC: H.ER 22:24
DX: F10.129 Alcohol abuse with intoxication, unspecified (principal); S00.03XA Contusion of scalp, initial encounter; S00.81XA Abrasion of other part of head, initial encounter; S99.912A Unspecified injury of left ankle, initial encounter; W19.XXXA Unspecified fall, initial encounter; Y92.410 Unspecified street and highway as the place of occurrence of the external cause; D86.9 Sarcoidosis, unspecified; I10 Essential (primary) hypertension; M06.9 Rheumatoid arthritis, unspecified
CPT/HCPCS: 70450; 73610; 82948; 99283; G0480

== ENCOUNTER 2017-10-22 14:02 | Inpatient (IN) | payer OTHER ==
[2017-10-22 14:02] VITALS: BMI 31.0
[2017-10-22] MEDS ORDERED: Morphine 4 MG/ML VIAL IVP STA (15:20)
[2017-10-22] MEDS ORDERED: Lactated Ringer's 1,000 ML IV SCH (15:30)
[2017-10-22] MEDS ORDERED: Morphine 4 MG/ML VIAL ONE ×3 (15:31→22:50)
[2017-10-22 15:38] LABS: BASO % 0.5 % (0.0-2.0); EOS # 0.1 K/uL (0.0-0.7); EOS % 0.9 % (0.0-4.0); HEMOGLOBIN 14.7 g/dL (12.0-18.0); LYMPH % 12.9 % (20.0-40.0); MEAN CELL VOLUME 87.6 fl (80.0-94.0); MEAN CORPUSCULAR HEMOGLOBIN 30.3 pg (27.0-31.0); MEAN CORPUSCULAR HGB CONC 34.6 g/dL (33.0-37.0); MEAN PLATELET VOLUME 7.7 fl (7.2-11.7); MONO # 0.9 K/uL (0.0-0.8); MONO % 12.2 % (0.0-10.0); NEUT # 5.7 K/uL (1.8-7.0); NEUT % 73.5 % (50.0-75.0); RBC 4.86 Mil/uL (4.40-5.90); RED CELL DISTRIBUTION WIDTH 16.8 % (11.5-14.5); WHITE BLOOD COUNT 7.7 K/uL (4.8-10.8)
[2017-10-22 15:51] LABS: ALT/SGPT 56 U/L (21-72); AST/SGOT 58 U/L (17-59); BLOOD UREA NITROGEN 11 mg/dl (9-20); CALCIUM 9.7 mg/dL (8.4-10.2); GFR AFRICAN-AMERICAN > 60; GFR NON-AFRICAN AMERICAN > 60; LIPASE 412 U/L (23-300)
[2017-10-22] MEDS: Lactated Ringer's 1,000 ML IV SCH ×3 (15:56→18:06)
[2017-10-22 16:36] LABS: URINE BACTERIA RARE (<OCC); URINE BILIRUBIN NEGATIVE (NEGATIVE); URINE BLOOD NEGATIVE (NEGATIVE); URINE CLARITY CLEAR (Clear); URINE COLOR YELLOW (YELLOW); URINE GLUCOSE (UA) NEG (Normal); URINE LEUKOCYTE ESTERASE NEG Leu/uL (Negative); URINE PROTEIN NEGATIVE (NEGATIVE); URINE UROBILINOGEN 0.2-1.0 mg/dL (0.2-1.0)
--- NOTE | 2017-10-22 17:52 | US ---
HISTORY: epigastric pain, hx of pancreatitis COMPARISON: None. TECHNIQUE: Grayscale imaging was performed. FINDINGS: LIVER: Measures 16.5 cm. There is diffuse increased echogenicity of the liver parenchyma. No mass. No intrahepatic bile duct dilatation. GALLBLADDER: The gallbladder is well distended without gallstones, wall thickening or pericholecystic fluid. The sonographic Ratliff's sign is negative. COMMON BILE DUCT: Measures 4.0 mm. No stones. No dilatation. PANCREAS: Unremarkable as visualized. No mass. No ductal dilatation. RIGHT KIDNEY: Measures 11.6cm. Normal echogenicity. No calculus, mass, or hydronephrosis. LEFT KIDNEY: Measures 12.1cm. Normal echogenicity. No calculus, mass, or hydronephrosis. SPLEEN: The spleen is enlarged and measures 14.4 cm. Normal echotexture. AORTA: No aneurysmal dilatation. IVC: Unremarkable. OTHER FINDINGS: There is small perihepatic ascites. IMPRESSION: Mild hepatomegaly. Diffuse increased echogenicity in the liver may reflect hepatic steatosis however parenchymal infectious/ inflammatory etiologies cannot be entirely excluded. Clinical and laboratory correlation is advised. Mild splenomegaly. Small perihepatic ascites. Evaluation of the pancreas is limited on ultrasound examination. The visualized pancreas is grossly unremarkable.
[2017-10-22] MEDS ORDERED: Iohexol 240 (50 ml) PO ONE (18:18)
[2017-10-22] MEDS ORDERED: Iohexol 240 (50 ml) ONE (18:53)
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
[2017-10-22] MEDS ORDERED: Iohexol 300 100 ML IJ ONE (20:23)
[2017-10-22] MEDS ORDERED: Morphine 4 MG/ML VIAL IVP ONE (22:02)
--- NOTE | 2017-10-22 22:06 | ED PDOC ---
- Laboratory Results Result Diagrams: 10/26/17 06:10 10/26/17 06:10 - ECG O2 Sat by Pulse Oximetry: 99 - Radiology X-Ray: Viewed By Me X-Ray Interpretation: No Acute Disease - Progress ED Course And Treament: Case endorsed to machine sign writer from Mandy ESCOBEDO pending CT EXAM: CT Abdomen and Pelvis With Intravenous Contrast CLINICAL HISTORY: The patient is a 37 years male; Pain; Abdominal pain; Additional info: Diffuse abd pain, HX of pancreatitis 10/22/2017 6:18 PM TECHNIQUE: Axial computed tomography images of the abdomen and pelvis with intravenous contrast. All CT scans at this facility use one or more dose reduction techniques, viz.: automated exposure control; ma/kV adjustment per patient size (including targeted exams where dose is matched to indication; i.e. head); or iterative reconstruction technique. CONTRAST: 90 mL of [id number] administered intravenously. COMPARISON: CT - ABD PELVIS PO IV CONTRAST 2016-11-29 05:42 FINDINGS: Lung bases: Patchy and streaky opacities in the both lung bases could either represent subsegmental atelectasis and/or developing infiltrate. Correlate clinically. ABDOMEN: Liver: Hepatic steatosis. Gallbladder and bile ducts: The gallbladder is distended and fluid-filled. No calcified stones. No ductal dilation. Pancreas: See below. Spleen: Mild splenomegaly. Adrenals: Unremarkable. No mass. Kidneys and ureters: Unremarkable. No solid mass. No hydronephrosis. Stomach and bowel: Inflammatory changes are noted in the region of duodenum with apparent duodenal wall thickening and traces of fluid. The inflammatory changes extend to the hepatic flexure of the colon and pancreatic uncinate process. These findings are concerning for duodenitis/duodenal ulcer disease versus superimposed acute pancreatitis not excluded. Correlate clinically. Adjacent to the hepatic flexure of the colon, there is 3.5 cm soft tissue lesion and another 1.4 cm nodule. These are concerning for mass/lymphadenopathy. Appendix: No findings to suggest acute appendicitis. PELVIS: Bladder: Partially contracted. Reproductive: Unremarkable as visualized. ABDOMEN and PELVIS: Intraperitoneal space: small amount of free fluid in the abdomen and pelvis. No free air. Bones/joints: No acute fracture. No dislocation. Soft tissues: Unremarkable. Vasculature: Heterogeneous enhancement of the portal vein. If clinical concern for thrombus, evaluation with ultrasound is recommended.. No abdominal aortic aneurysm. Lymph nodes: lymph nodes in the mediastinum the largest measures up to 1 cm in short axis. Portal caval lymph nodes are noted, measuring up to 9 mm in short axis. IMPRESSION: 1. Inflammatory changes are noted in the region of duodenum with apparent duodenal wall thickening and traces of fluid. The inflammatory changes extend to the hepatic flexure of the colon and pancreatic uncinate process. These findings are concerning for duodenitis/ duodenal ulcer disease versus superimposed acute pancreatitis not excluded. Correlate clinically. 2. Adjacent to the hepatic flexure of the colon, there is 3.5 cm soft tissue lesion and another 1.4 cm nodule. These are concerning for mass/lymphadenopathy, concerning for inflammatory process versus neoplasm. 3. small amount of free fluid in the abdomen and pelvis. Superimposed infection not excluded. 4. Heterogeneous enhancement of the portal vein. If clinical concern for thrombus, evaluation with ultrasound is recommended.. Patchy and streaky opacities in the both lung bases could either represent subsegmental atelectasis and/or developing infiltrate. Correlate clinically. On re-eval, patient still in pain. States pain is similar to previous pancreatitis flare-ups Case discussed with FP resident on-call, for placement in observation med/surg for IV hydration/pain control Disposition - Clinical Impression Clinical Impression: Abdominal pain, Pancreatitis - POA Present On Arrival: None - Disposition Disposition: Hospitalized as Observation Patient Disposition Time: 22:48 Condition: FAIR
[2017-10-23] MEDS ORDERED: Sodium Chloride 0.9% 1,000 ML IV SCH (00:15)
[2017-10-23] MEDS: Morphine 5 MG/ML SYRINGE IVP PRN ×4 (03:08→13:58)
[2017-10-23] MEDS ORDERED: Morphine 5 MG/ML SYRINGE IVP ONE (04:14)
[2017-10-23] MEDS: Sodium Chloride 0.9% 1,000 ML IV SCH ×5 (04:42→10:35)
[2017-10-23 06:32] LABS: BLOOD UREA NITROGEN 9 mg/dl (9-20); CALCIUM 9.1 mg/dL (8.4-10.2); GFR AFRICAN-AMERICAN > 60; GFR NON-AFRICAN AMERICAN > 60
[2017-10-23] MEDS ORDERED: Lactated Ringer's 1,000 ML IV SCH ×2 (07:30→10:52)
[2017-10-23] MEDS: Multivitamin With Minerals Tab PO SCH ×2 (08:00→08:03)
--- NOTE | 2017-10-23 08:38 | RAD ---
HISTORY: admit COMPARISON: No prior. TECHNIQUE: Chest PA and lateral FINDINGS: LUNGS: Diminishing infiltrate seen the mid to inferior left lung zone as well as the right infrahilar space with right hemidiaphragm elevation unchanged. PLEURA: No significant pleural effusion identified. No pneumothorax apparent. CARDIOVASCULAR: Normal. OSSEOUS STRUCTURES: No significant abnormalities. VISUALIZED UPPER ABDOMEN: Normal. OTHER FINDINGS: None. IMPRESSION: Diminished bilateral infiltrates as discussed above. Trace residual noted at the inferior left lung zone. Elevated right hemidiaphragm stable.
[2017-10-23] MEDS ORDERED: Pneumococcal 23-Valent Vaccine IM ONE (09:00)
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
--- NOTE | 2017-10-23 10:42 | CT ---
PROCEDURE: CT Abdomen and Pelvis with contrast HISTORY: diffuse abd pain, hx of pancreatitis COMPARISON: Abdomen pelvis CT examination without contrast 12/02/2016. TECHNIQUE: Following oral and intravenous contrast administration, a CT examination of the abdomen and pelvis performed from the domes of the diaphragms to the symphysis pubis with reformatted datasets provided not only axial but also sagittal and coronal series. Contrast dose: Omnipaque 300, 90 cc Radiation dose: Total exam DLP = 880.73 mGy-cm. This CT exam was performed using one or more of the following dose reduction techniques: Automated exposure control, adjustment of the mA and/or kV according to patient size, and/or use of iterative reconstruction technique. FINDINGS: LOWER THORAX: Bilateral basilar atelectasis/ infiltrates are identified with underlying ground-glass opacity. Note is made of mediastinal lymphadenopathy including 1.8 x 0.8 cm subcarinal lymph node with additional smaller sub carinal lymph nodes. Additional precarinal mildly enlarged lymph nodes are identified as well as preaortic and bilateral hilar regions. LIVER: Diminished tension with attenuation is again appreciate the liver suggestive of hepatic steatosis. There is borderline intrahepatic biliary dilatation seen as well. No definite focal hepatic parenchymal lesion identified. GALLBLADDER AND BILE DUCTS: Gallbladder is distended without radiodense cholelithiasis related. No significant intrahepatic biliary dilatation appreciated. PANCREAS: Pancreatic head and neck appear somewhat prominent potentially from edema with peripancreatic fluid seen associated. Note, the body and tail are unaffected. The epicenter of mesenteric reaction and trace local fluid is at the 2nd and 3rd portions of the duodenum retrieve the sympathetic Gene inflamed or possibly intrinsically inflamed. A small fluid collection is loculated at the inferior margins of the 3rd portion the duodenum. Consider possible duodenitis or even perforated ulcer. No free intraperitoneal gas is defined however to suggest bowel perforation. SPLEEN: Unremarkable. ADRENALS: Unremarkable. No mass. KIDNEYS AND URETERS: Unremarkable. No hydronephrosis. No solid mass. VASCULATURE: Unremarkable. No aortic aneurysm. BOWEL: The stomach is moderately distended with retained oral contrast material. Colon appears grossly nonfocal though limited fecal loading is seen distally. There is no bowel obstruction and opacified small bowel loops appear unremarkable grossly. See pancreas section above as the duodenum is abnormal. APPENDIX: I do not see the appendix. No classic appendicitis pattern appreciated. PERITONEUM: Limited peritoneal fluid is seen the pelvis bilaterally as well as inferior to the 3rd portion of duodenum. LYMPH NODES: Unremarkable. No enlarged lymph nodes. BLADDER: Unremarkable. REPRODUCTIVE: Unremarkable. BONES: Limited fracture of the L5 vertebral body appears chronic but stable. OTHER FINDINGS: None. IMPRESSION: Acute or subacute abdominal changes are identified suggestive of potential pancreatitis at the head and neck of the pancreas versus severe duodenitis or even perforated duodenal ulcer at the 3rd portion. Small tubular shaped fluid collection seen inferior to the margin of the 3rd portion the duodenum with prominent local reactions centered around the duodenum rather than only the pancreas as previously shown in prior abdomen pelvis CT 12/02/2016. No free intraperitoneal gas is identified to suggest bowel perforation at this time however and further clinical correlation is advised. Please see discussion above. Bilateral basilar atelectasis or pneumonia with [id number] mediastinal lymphadenopathy incidentally captured as well.
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
--- NOTE | 2017-10-23 12:25 | CARD ---
APPROVED REPORT EKG Measurement Heart [id number] <Conclusion> Normal sinus rhythm Normal ECG
[2017-10-23] MEDS: Lactated Ringer's 1,000 ML IV SCH ×4 (14:07→23:56)
[2017-10-24] MEDS: Lactated Ringer's 1,000 ML IV SCH ×5 (00:32→20:07)
[2017-10-24 06:37] LABS: HEMOGLOBIN 12.4 g/dL (12.0-18.0); MEAN CELL VOLUME 89.1 fl (80.0-94.0); MEAN CORPUSCULAR HEMOGLOBIN 30.1 pg (27.0-31.0); MEAN CORPUSCULAR HGB CONC 33.8 g/dL (33.0-37.0); RBC 4.12 Mil/uL (4.40-5.90); RED CELL DISTRIBUTION WIDTH 16.7 % (11.5-14.5); WHITE BLOOD COUNT 5.8 K/uL (4.8-10.8)
[2017-10-24 07:35] LABS: LDL CHOLESTEROL 109 mg/dL (0-129)
[2017-10-24 07:41] LABS: ALBUMIN 3.3 g/dL (3.5-5.0); ALT/SGPT 61 U/L (21-72); AMYLASE 299 U/L (30-110); AST/SGOT 74 U/L (17-59); BLOOD UREA NITROGEN 4 mg/dl (9-20); CALCIUM 9.2 mg/dL (8.4-10.2); GFR AFRICAN-AMERICAN > 60; GFR NON-AFRICAN AMERICAN > 60; HDL CHOLESTEROL 34 MG/DL (30-70)
[2017-10-24] MEDS: Multivitamin With Minerals Tab PO SCH (08:26)
[2017-10-24] MEDS ORDERED: Potassium Chloride 20 mEq ER Tab PO ONE (10:07)
--- NOTE | 2017-10-24 10:12 | CP.PCM.PN ---
<Alfa Choi - Last Filed: 10/24/17 11:22> Subjective - Date & Time of Evaluation Date of Evaluation: 10/24/17 Time of Evaluation: 07:15 - Subjective Subjective: pt seen and examined at bedside reporting improvement in abodminal pain. Pt denies significant overnight events. Denies: CP/SOB/N/V. Pain is currently well managed with medications. Objective - Vital Signs/Intake and Output Vital Signs (last 24 hours): Temp Pulse Resp BP Pulse Ox 97.8 F 93 H 19 166/98 H 97 10/24/17 07:56 10/24/17 08:25 10/24/17 07:56 10/24/17 08:25 10/24/17 07:56 - Medications Medications: Current Medications Amlodipine Besylate (Norvasc) 10 mg PO DAILY [facility] Last Admin: 10/24/17 08:25 Dose: 10 mg Azathioprine (Imuran) 50 mg PO Q12 [facility] Last Admin: 10/24/17 08:24 Dose: 50 mg Folic Acid (Folic Acid) 1 mg PO DAILY [facility] Last Admin: 10/24/17 08:22 Dose: 1 mg Home Med (Finasteride [Propecia]) 1 mg PO DAILY [facility] Last Admin: 10/24/17 08:23 Dose: 1 mg Lactated Ringer's (Lactated Ringer's) 1,000 mls @ 250 mls/hr IV .Q4H [facility] Last Admin: 10/24/17 04:47 Dose: Not Given Morphine Sulfate (Morphine) 6 mg IVP Q3 PRN PRN Reason: Pain, severe (8-10) Last Admin: 10/24/17 09:30 Dose: 6 mg Multivitamins/Minerals (Therapeutic-M Tab) 1 tab PO DAILY [facility] Last Admin: 10/24/17 08:26 Dose: 1 tab Thiamine HCl (Vitamin B1 Tab) 100 mg PO DAILY [facility] Last Admin: 10/24/17 08:26 Dose: 100 mg - Labs Labs: 10/24/17 05:55 10/24/17 05:55 - Constitutional Appears: Well, No Acute Distress - Eye Exam Eye Exam: EOMI - Neck Exam Neck Exam: Full ROM - Respiratory Exam Respiratory Exam: Clear to Ausculation Bilateral, NORMAL BREATHING PATTERN. absent: Wheezes - Cardiovascular Exam Cardiovascular Exam: REGULAR RHYTHM, +S1, +S2 - GI/Abdominal Exam GI & Abdominal Exam: Soft, Tenderness (slight tenderness at epigastric region 2/ 2 deep palpation), Normal Bowel Sounds - Neurological Exam Neurological Exam: Alert, Awake, CN II-XII Intact, Oriented x3 - Psychiatric Exam Psychiatric exam: Normal Affect, Normal Mood Assessment and Plan - Assessment and Plan (Free Text) Plan: 37 YO M w/ PMH of sarcoidosis, Arthritis, HTN, and recurrent episodes of pancreatitis admitted with abdominal pain. Abdominal pain -MedSurg unit -most likely 2/2 alcohol related acute pancreatitis -lipase slightly elevated on admission 412, (was normal on 09/05/17); 10/24: pending -clear liquid and progress as tolerated -IV fluids at 100 mls/hr -pain control: seen by Dr. Priest: recommendation appreciated: morphine 6 mg IV q3h PRN. When on PO: Oxycontin 20 mg q12 with morphine 6 mg IV q4 PRN. -Abd/pelvis CT with PO/IV contrast reported as findings concerning for duodenitis/duodenal ulcer disease vs superimposed acute pancreatitis not excluded. 3.5 cm soft tissue lesion and another nodule 1.4 cm concerning for mass/lymphadenopathy, concerning for inflammatory process vs neoplasm. -GI consult: Dr. Carmichael: may progress liquid diet with NS at 100 mls -lipase/amylase: pending/299 -cbc with sed rate: 5.8>12.4/36.7<194; esr: 45 -b12/folate: 274/pending Hypertension -resumed Norvasc Hypokalemia -3.3. s/p kdur 20 -f/u k Sarcoidosis -resume home meds DVT prophylaxis SCDs for now <Cirilo Pereira - Last Filed: 10/24/17 16:10> Objective - Vital Signs/Intake and Output Vital Signs (last 24 hours): Temp Pulse Resp BP Pulse Ox 97.8 F 93 H 19 166/98 H 97 10/24/17 07:56 10/24/17 08:25 10/24/17 07:56 10/24/17 08:25 10/24/17 07:56 - Medications Medications: Current Medications Amlodipine Besylate (Norvasc) 10 mg PO DAILY [facility] Last Admin: 10/24/17 08:25 Dose: 10 mg Azathioprine (Imuran) 50 mg PO Q12 [facility] Last Admin: 10/24/17 08:24 Dose: 50 mg Folic Acid (Folic Acid) 1 mg PO DAILY [facility] Last Admin: 10/24/17 08:22 Dose: 1 mg Home Med (Finasteride [Propecia]) 1 mg PO DAILY [facility] Last Admin: 10/24/17 08:23 Dose: 1 mg Lactated Ringer's (Lactated Ringer's) 1,000 mls @ 250 mls/hr IV .Q4H [facility] Last Admin: 10/24/17 10:00 Dose: 250 mls/hr Lactated Ringer's (Lactated Ringer's) 1,000 mls @ 100 mls/hr IV .Q10H [facility] Morphine Sulfate (Morphine) 6 mg IVP Q3 PRN PRN Reason: Pain, severe (8-10) Last Admin: 10/24/17 16:01 Dose: 6 mg Multivitamins/Minerals (Therapeutic-M Tab) 1 tab PO DAILY [facility] Last Admin: 10/24/17 08:26 Dose: 1 tab Thiamine HCl (Vitamin B1 Tab) 100 mg PO DAILY [facility] Last Admin: 10/24/17 08:26 Dose: 100 mg - Labs Labs: 10/24/17 05:55 10/24/17 05:55 Attending/Attestation - Attestation I have personally seen and examined this patient.: Yes I have fully participated in the care of the patient.: Yes I have reviewed all pertinent clinical information, including history, physical exam and plan: Yes
[2017-10-24 13:39] LABS: FOLATE > 20.0 ng/mL
[2017-10-25] MEDS: Lactated Ringer's 1,000 ML IV SCH ×2 (03:08→08:48)
[2017-10-25 06:47] LABS: HEMOGLOBIN 12.7 g/dL (12.0-18.0); MEAN CELL VOLUME 89.3 fl (80.0-94.0); MEAN CORPUSCULAR HEMOGLOBIN 30.5 pg (27.0-31.0); MEAN CORPUSCULAR HGB CONC 34.1 g/dL (33.0-37.0); RBC 4.15 Mil/uL (4.40-5.90); RED CELL DISTRIBUTION WIDTH 16.9 % (11.5-14.5); WHITE BLOOD COUNT 4.9 K/uL (4.8-10.8)
[2017-10-25 07:26] LABS: ALBUMIN 3.3 g/dL (3.5-5.0); ALT/SGPT 47 U/L (21-72); AST/SGOT 39 U/L (17-59); BLOOD UREA NITROGEN < 2 mg/dl (9-20); CALCIUM 9.2 mg/dL (8.4-10.2); GFR AFRICAN-AMERICAN > 60; GFR NON-AFRICAN AMERICAN > 60
[2017-10-25] MEDS ORDERED: Potassium Chloride 20 mEq ER Tab PO ONE (07:31)
[2017-10-25] MEDS: Multivitamin With Minerals Tab PO SCH (08:49)
--- NOTE | 2017-10-25 08:52 | CP.PCM.PN ---
Subjective - Date & Time of Evaluation Date of Evaluation: 10/24/17 Time of Evaluation: 09:00 - Subjective Subjective: Abdominal pain present though less intense. Objective - Vital Signs/Intake and Output Vital Signs (last 24 hours): Temp Pulse Resp BP Pulse Ox 98.1 F 82 20 143/93 H 97 10/25/17 08:15 10/25/17 08:15 10/25/17 08:15 10/25/17 08:15 10/25/17 08:15 - Medications Medications: Current Medications Amlodipine Besylate (Norvasc) 10 mg PO DAILY [facility] Last Admin: 10/24/17 08:25 Dose: 10 mg Azathioprine (Imuran) 50 mg PO Q12 [facility] Last Admin: 10/24/17 21:27 Dose: 50 mg Chlordiazepoxide (Librium) 25 mg PO Q4H [facility] Folic Acid (Folic Acid) 1 mg PO DAILY [facility] Last Admin: 10/24/17 08:22 Dose: 1 mg Home Med (Finasteride [Propecia]) 1 mg PO DAILY [facility] Last Admin: 10/24/17 08:23 Dose: 1 mg Lactated Ringer's (Lactated Ringer's) 1,000 mls @ 250 mls/hr IV .Q4H [facility] Last Admin: 10/24/17 10:00 Dose: 250 mls/hr Lactated Ringer's (Lactated Ringer's) 1,000 mls @ 100 mls/hr IV .Q10H [facility] Last Admin: 10/25/17 03:08 Dose: Not Given Morphine Sulfate (Morphine) 6 mg IVP Q3 PRN PRN Reason: Pain, severe (8-10) Last Admin: 10/25/17 05:08 Dose: 6 mg Multivitamins/Minerals (Therapeutic-M Tab) 1 tab PO DAILY [facility] Last Admin: 10/24/17 08:26 Dose: 1 tab Thiamine HCl (Vitamin B1 Tab) 100 mg PO DAILY [facility] Last Admin: 10/24/17 08:26 Dose: 100 mg - Labs Labs: 10/25/17 05:50 10/25/17 05:50 - Head Exam Head Exam: ATRAUMATIC - Eye Exam Eye Exam: PERRL - Neck Exam Neck Exam: Full ROM - Respiratory Exam Respiratory Exam: NORMAL BREATHING PATTERN - Cardiovascular Exam Cardiovascular Exam: REGULAR RHYTHM - GI/Abdominal Exam GI & Abdominal Exam: Soft, Tenderness Additional comments: moderate generalized tenderness Assessment and Plan (1) Pancreatitis Assessment & Plan: Continue IF fluids. Advance diet as tolerated. Monitor clinically. Status: Acute
--- NOTE | 2017-10-25 13:51 | RAD ---
PROCEDURE: Right Hand Radiographs. HISTORY: swelling of ring finger COMPARISON: None. FINDINGS: BONES: Normal. No fracture. JOINTS: Normal. No osteoarthritic changes. SOFT TISSUES: Soft tissue swelling confined to the 4th digit. OTHER FINDINGS: None. IMPRESSION: Soft tissue swelling without acute articular or osseous abnormality.
[2017-10-25] MEDS: oxyCODONE 20 mg ER Tab (oxyCONTIN) PO SCH ×2 (15:22→21:00)
[2017-10-25] MEDS ORDERED: Pneumococcal 23-Valent Vaccine IM ONE (16:52)
--- NOTE | 2017-10-25 21:05 | CP.PCM.PN ---
Subjective - Date & Time of Evaluation Date of Evaluation: 10/25/17 Time of Evaluation: 14:00 - Subjective Subjective: Abdominal pain improved since yesterday. Tolerating oral diet. Objective - Vital Signs/Intake and Output Vital Signs (last 24 hours): Temp Pulse Resp BP Pulse Ox 98.2 F 92 H 20 142/94 H 97 10/25/17 16:37 10/25/17 16:37 10/25/17 16:37 10/25/17 16:37 10/25/17 16:37 - Medications Medications: Current Medications Amlodipine Besylate (Norvasc) 10 mg PO DAILY [facility] Last Admin: 10/25/17 08:48 Dose: 10 mg Azathioprine (Imuran) 50 mg PO Q12 [facility] Last Admin: 10/25/17 08:47 Dose: 50 mg Chlordiazepoxide (Librium) 25 mg PO Q6 [facility] Last Admin: 10/25/17 15:25 Dose: 25 mg Folic Acid (Folic Acid) 1 mg PO DAILY [facility] Last Admin: 10/25/17 08:47 Dose: 1 mg Home Med (Finasteride [Propecia]) 1 mg PO DAILY [facility] Last Admin: 10/25/17 08:47 Dose: 1 mg Lactated Ringer's (Lactated Ringer's) 1,000 mls @ 150 mls/hr IV .Q6H40M [facility] Stop: 10/26/17 04:39 Ibuprofen (Motrin Tab) 600 mg PO Q6 PRN PRN Reason: Pain, Mild (1-3) Last Admin: 10/25/17 15:22 Dose: 600 mg Morphine Sulfate (Morphine) 6 mg IVP Q4 PRN PRN Reason: Pain, severe (8-10) Last Admin: 10/25/17 16:34 Dose: 6 mg Multivitamins/Minerals (Therapeutic-M Tab) 1 tab PO DAILY [facility] Last Admin: 10/25/17 08:49 Dose: 1 tab Oxycodone HCl (Oxycontin Extended Release Tab) 20 mg PO Q12 [facility] Last Admin: 10/25/17 15:22 Dose: 20 mg Thiamine HCl (Vitamin B1 Tab) 100 mg PO DAILY [facility] Last Admin: 10/25/17 08:49 Dose: 100 mg - Labs Labs: 10/25/17 05:50 10/25/17 05:50 - Head Exam Head Exam: ATRAUMATIC - Eye Exam Eye Exam: Normal appearance Pupil Exam: PERRL - ENT Exam ENT Exam: Normal Exam - Neck Exam Neck Exam: Full ROM - Respiratory Exam Respiratory Exam: Clear to Ausculation Bilateral - Cardiovascular Exam Cardiovascular Exam: REGULAR RHYTHM, +S1, +S2 - GI/Abdominal Exam GI & Abdominal Exam: Soft, Tenderness, Normal Bowel Sounds Additional comments: moderate epigastric tenderness Assessment and Plan (1) Pancreatitis Assessment & Plan: Pancreatitis continues to improve . Continue current treatment. Status: Acute
[2017-10-25] MEDS ORDERED: Lactated Ringer's 1,000 ML IV SCH (22:00)
[2017-10-26] MEDS: oxyCODONE 20 mg ER Tab (oxyCONTIN) PO SCH ×2 (03:10→15:02)
[2017-10-26 06:49] LABS: HEMOGLOBIN 12.6 g/dL (12.0-18.0); MEAN CELL VOLUME 89.7 fl (80.0-94.0); MEAN CORPUSCULAR HGB CONC 33.5 g/dL (33.0-37.0); RBC 4.18 Mil/uL (4.40-5.90); RED CELL DISTRIBUTION WIDTH 16.9 % (11.5-14.5)
[2017-10-26 07:28] LABS: ALBUMIN 3.5 g/dL (3.5-5.0); ALT/SGPT 42 U/L (21-72); AST/SGOT 25 U/L (17-59); BLOOD UREA NITROGEN 3 mg/dl (9-20); CALCIUM 9.3 mg/dL (8.4-10.2); GFR AFRICAN-AMERICAN > 60; GFR NON-AFRICAN AMERICAN > 60
[2017-10-26] MEDS ORDERED: Triamcinolone Acetonide 40 mg/mL Inj IM ONE (07:36)
--- NOTE | 2017-10-26 07:38 | CP.PCM.PN ---
Subjective - Date & Time of Evaluation Date of Evaluation: 10/26/17 Time of Evaluation: 07:00 Objective - Vital Signs/Intake and Output Vital Signs (last 24 hours): Temp Pulse Resp BP Pulse Ox 98.4 F 74 20 117/76 99 10/25/17 23:54 10/25/17 23:54 10/25/17 23:54 10/25/17 23:54 10/25/17 23:54 - Medications Medications: Current Medications Amlodipine Besylate (Norvasc) 10 mg PO DAILY [facility] Last Admin: 10/25/17 08:48 Dose: 10 mg Azathioprine (Imuran) 50 mg PO Q12 [facility] Last Admin: 10/25/17 22:00 Dose: 50 mg Chlordiazepoxide (Librium) 25 mg PO Q6 [facility] Last Admin: 10/26/17 03:42 Dose: 25 mg Folic Acid (Folic Acid) 1 mg PO DAILY [facility] Last Admin: 10/25/17 08:47 Dose: 1 mg Home Med (Finasteride [Propecia]) 1 mg PO DAILY [facility] Last Admin: 10/25/17 08:47 Dose: 1 mg Ibuprofen (Motrin Tab) 600 mg PO Q6 PRN PRN Reason: Pain, Mild (1-3) Last Admin: 10/25/17 15:22 Dose: 600 mg Morphine Sulfate (Morphine) 6 mg IVP Q4 PRN PRN Reason: Pain, severe (8-10) Last Admin: 10/26/17 05:23 Dose: 6 mg Multivitamins/Minerals (Therapeutic-M Tab) 1 tab PO DAILY [facility] Last Admin: 10/25/17 08:49 Dose: 1 tab Oxycodone HCl (Oxycontin Extended Release Tab) 20 mg PO Q12@0300,1500 [facility] Last Admin: 10/26/17 03:10 Dose: 20 mg Thiamine HCl (Vitamin B1 Tab) 100 mg PO DAILY [facility] Last Admin: 10/25/17 08:49 Dose: 100 mg Triamcinolone Acetonide (Kenalog-40 Inj) 80 mg IM ONCE ONE Stop: 10/26/17 07:37 - Labs Labs: 10/26/17 06:10 10/26/17 06:10 Assessment and Plan - Assessment and Plan (Free Text) Plan: 37 YO M w/ PMH of sarcoidosis, Arthritis, HTN, and recurrent episodes of pancreatitis admitted with abdominal pain. Pt stable. GI: Dr. Carmichael. Transitioned to PO diet. Pain management: Dr. Priest. Pt cleared for discharge.
[2017-10-26 08:00] VITALS: RESP 18; O2SAT 97
[2017-10-26] MEDS: Multivitamin With Minerals Tab PO SCH (08:14)
--- NOTE | 2017-10-26 14:49 | CP.PCM.PN ---
Subjective - Date & Time of Evaluation Date of Evaluation: 10/26/17 Time of Evaluation: 09:00 - Subjective Subjective: Abdominal pain improved from yesterday. Objective - Vital Signs/Intake and Output Vital Signs (last 24 hours): Temp Pulse Resp BP Pulse Ox 98.0 F 97 H 18 148/84 97 10/26/17 07:59 10/26/17 07:59 10/26/17 07:59 10/26/17 07:59 10/26/17 07:59 - Medications Medications: Current Medications Amlodipine Besylate (Norvasc) 10 mg PO DAILY [facility] Last Admin: 10/26/17 08:13 Dose: 10 mg Azathioprine (Imuran) 50 mg PO Q12 [facility] Last Admin: 10/26/17 08:15 Dose: 50 mg Chlordiazepoxide (Librium) 25 mg PO Q6 [facility] Last Admin: 10/26/17 10:02 Dose: 25 mg Folic Acid (Folic Acid) 1 mg PO DAILY [facility] Last Admin: 10/26/17 08:13 Dose: 1 mg Home Med (Finasteride [Propecia]) 1 mg PO DAILY [facility] Last Admin: 10/26/17 08:12 Dose: 1 mg Ibuprofen (Motrin Tab) 600 mg PO Q6 PRN PRN Reason: Pain, Mild (1-3) Last Admin: 10/26/17 08:11 Dose: 600 mg Morphine Sulfate (Morphine) 6 mg IVP Q4 PRN PRN Reason: Pain, severe (8-10) Last Admin: 10/26/17 13:25 Dose: 6 mg Multivitamins/Minerals (Therapeutic-M Tab) 1 tab PO DAILY [facility] Last Admin: 10/26/17 08:14 Dose: 1 tab Oxycodone HCl (Oxycontin Extended Release Tab) 20 mg PO Q12@0300,1500 [facility] Last Admin: 10/26/17 03:10 Dose: 20 mg Thiamine HCl (Vitamin B1 Tab) 100 mg PO DAILY [facility] Last Admin: 10/26/17 08:14 Dose: 100 mg - Labs Labs: 10/26/17 06:10 10/26/17 06:10 - Head Exam Head Exam: ATRAUMATIC - Eye Exam Eye Exam: Normal appearance - ENT Exam ENT Exam: Normal Exam - Cardiovascular Exam Cardiovascular Exam: REGULAR RHYTHM - GI/Abdominal Exam GI & Abdominal Exam: Soft. absent: Tenderness Assessment and Plan (1) Pancreatitis Assessment & Plan: Stable for discharge. Alcohol abstention to prevent development of chronic pancreatitis. Status: Acute
[2017-10-26] MEDS ORDERED: Potassium Chloride 20 mEq ER Tab PO ONE (16:24)
--- NOTE | 2017-10-26 16:28 | CP.PCM.DIS ---
<Alfa Choi - Last Filed: 10/26/17 16:30> Provider - Provider Date of Admission: 10/23/17 16:29 Attending physician: Cirilo Pereira MD Time Spent in preparation of Discharge (in minutes): 20 Diagnosis - Discharge Diagnosis (1) Abdominal pain Status: Acute Hospital Course - Lab Results Lab Results: Most Recent Lab Values WBC 6.0 K/uL (4.8-10.8) 10/26/17 06:10 RBC 4.18 Mil/uL (4.40-5.90) L 10/26/17 06:10 Hgb 12.6 g/dL (12.0-18.0) 10/26/17 06:10 Hct 37.5 % (35.0-51.0) 10/26/17 06:10 MCV 89.7 fl (80.0-94.0) 10/26/17 06:10 MCH 30.0 pg (27.0-31.0) 10/26/17 06:10 MCHC 33.5 g/dL (33.0-37.0) 10/26/17 06:10 RDW 16.9 % (11.5-14.5) H 10/26/17 06:10 Plt Count 214 K/uL (130-400) 10/26/17 06:10 MPV 7.7 fl (7.2-11.7) 10/22/17 15:34 Neut % (Auto) 73.5 % (50.0-75.0) 10/22/17 15:34 Lymph % (Auto) 12.9 % (20.0-40.0) L 10/22/17 15:34 [place] % (Auto) 12.2 % (0.0-10.0) H 10/22/17 15:34 Eos % (Auto) 0.9 % (0.0-4.0) 10/22/17 15:34 Baso % (Auto) 0.5 % (0.0-2.0) 10/22/17 15:34 Neut # (Auto) 5.7 K/uL (1.8-7.0) 10/22/17 15:34 Lymph # (Auto) 1.0 K/uL (1.0-4.3) 10/22/17 15:34 [place] # (Auto) 0.9 K/uL (0.0-0.8) H 10/22/17 15:34 Eos # (Auto) 0.1 K/uL (0.0-0.7) 10/22/17 15:34 Baso # (Auto) 0.0 K/uL (0.0-0.2) 10/22/17 15:34 ESR 45 mm/hr (0-15) H 10/24/17 05:55 Sodium 142 mmol/l (132-148) 10/26/17 06:10 Potassium 3.5 MMOL/L (3.6-5.0) L 10/26/17 06:10 Chloride 102 mmol/L (98-107) 10/26/17 06:10 Carbon Dioxide 22 mmol/L (22-30) 10/26/17 06:10 Anion Gap 22 (10-20) H 10/26/17 06:10 BUN 3 mg/dl (9-20) L 10/26/17 06:10 Creatinine 0.6 mg/dl (0.8-1.5) L 10/26/17 06:10 Est GFR ( Amer) > 60 10/26/17 06:10 Est GFR (Non-Af Amer) > 60 10/26/17 06:10 POC Glucose (mg/dL) 114 mg/dL (65-110) H 10/22/17 15:40 Random Glucose 127 mg/dL (75-110) H 10/26/17 06:10 Uric Acid 5.8 mg/Dl (3.5-8.5) 10/25/17 07:48 Calcium 9.3 mg/dL (8.4-10.2) 10/26/17 06:10 Total Bilirubin 1.2 mg/dl (0.2-1.3) 10/26/17 06:10 GGT 933 U/L (8-78) H 10/24/17 10:17 AST 25 U/L (17-59) 10/26/17 06:10 ALT 42 U/L (21-72) 10/26/17 06:10 Alkaline Phosphatase 150 U/L (38-126) H 10/26/17 06:10 Total Protein 7.0 G/DL (6.3-8.2) 10/26/17 06:10 Albumin 3.5 g/dL (3.5-5.0) 10/26/17 06:10 Globulin 3.4 gm/dL (2.2-3.9) 10/26/17 06:10 Albumin/Globulin Ratio 1.0 (1.0-2.1) 10/26/17 06:10 Triglycerides 113 mg/DL (0-149) 10/24/17 05:55 Cholesterol 175 mg/dL (0-199) 10/24/17 05:55 LDL Cholesterol Direct 109 mg/dL (0-129) 10/24/17 05:55 HDL Cholesterol 34 MG/DL (30-70) 10/24/17 05:55 Amylase 299 U/L (30-110) H D 10/24/17 05:55 Lipase 412 U/L (23-300) H 10/22/17 15:34 Vitamin B12 274 pg/mL (239-931) 10/24/17 05:55 Folate > 20.0 ng/mL 10/24/17 05:55 Urine Color Yellow (YELLOW) 10/22/17 16:15 Urine Clarity Clear (Clear) 10/22/17 16:15 Urine pH 9.0 (5.0-8.0) 10/22/17 16:15 Ur Specific [place] 1.013 (1.003-1.030) 10/22/17 16:15 Urine Protein Negative mg/dL (NEGATIVE) 10/22/17 16:15 Urine Glucose (UA) Neg mg/dL (Normal) 10/22/17 16:15 Urine Ketones Negative mg/dL (NEGATIVE) 10/22/17 16:15 Urine Blood Negative (NEGATIVE) 10/22/17 16:15 Urine Nitrate Negative (NEGATIVE) 10/22/17 16:15 Urine Bilirubin Negative (NEGATIVE) 10/22/17 16:15 Urine Urobilinogen 0.2-1.0 mg/dL (0.2-1.0) 10/22/17 16:15 Ur Leukocyte Esterase Neg Radha/uL (Negative) 10/22/17 16:15 Urine RBC (Auto) < 1 /hpf (0-3) 10/22/17 16:15 Urine Microscopic WBC < 1 /hpf (0-5) 10/22/17 16:15 Urine Bacteria Rare (<OCC) 10/22/17 16:15 Alcohol, Quantitative < 10 mg/dl (0-10) 10/22/17 15:34 - Hospital Course Hospital Course: 37 YO M w/ PMH of sarcoidosis, Arthritis, HTN, and recurrent episodes of pancreatitis admitted with abdominal pain, 2/2 alcohol intake. Pt stable. GI: Dr. Carmichael. Doing well on PO diet. Pain management: Dr. Priest. Pt cleared for discharge. Pt had acute episode of R ring finger swelling. XR: no fractures. Uric acid: wnl; symptoms improved and pt able to regain movement of digit. Pt to f/u with Dr. Pereira in 7-10 days. Discharge Exam - Head Exam Head Exam: ATRAUMATIC - Eye Exam Eye Exam: EOMI - Respiratory Exam Respiratory Exam: Clear to PA & Lateral, NORMAL BREATHING PATTERN. absent: Wheezes - Cardiovascular Exam Cardiovascular Exam: REGULAR RHYTHM, +S1, +S2 - GI/Abdominal Exam GI & Abdominal Exam: Normal Bowel Sounds, Soft. absent: Tenderness - Neurological Exam Neurological exam: Alert, CN II-XII Intact, Oriented x3 - Psychiatric Exam Psychiatric exam: Normal Affect, Normal Mood Discharge Plan - Discharge Medications Prescriptions: Albuterol HFA [Ventolin HFA 90 mcg/actuation (8 g)] 2 puff IH Q4H PRN #1 inhaler PRN Reason: Shortness Of Breath Albuterol/Ipratropium [Duoneb 3 mg/0.5 mg (3 ml) UD] 3 ml IH Q4 30 Days #120 neb amLODIPine [Norvasc] 10 mg PO DAILY #30 tab azaTHIOprine [Imuran] 50 mg PO Q12 #60 tab Folic Acid 1 mg PO DAILY #30 tab Ibuprofen [Motrin Tab] 1 tab PO Q6 PRN #20 tab PRN Reason: Pain, Moderate (4-7) Ibuprofen [Motrin Tab] 600 mg PO Q6 PRN #30 tab PRN Reason: Pain, Mild (1-3) Mask, Face [Nebulizer Aerosol Mask Adult] 1 dev XX PRN PRN #1 dev PRN Reason: Shortness Of Breath Nebulizer [Aeroeclipse II] 1 each MC Q4 30 Days #1 each Thiamine [Vitamin B1 Tab] 100 mg PO DAILY #30 tab - Follow Up Plan Condition: STABLE Disposition: HOME/ ROUTINE Patient education suggested?: Yes Instructions: Pancreatitis (DC) Additional Instructions: follow up with primary MD 7-10 days Referrals: Cirilo Pereira MD [Staff Provider] - Brian Carmichael MD [Staff Provider] - <LateshaZachalexi Bustillo - Last Filed: 10/29/17 07:07> Provider - Provider Date of Admission: 10/23/17 16:29 Attending physician: Cirilo Pereira MD Hospital Course - Lab Results Lab Results: Most Recent Lab Values WBC 6.0 K/uL (4.8-10.8) 10/26/17 06:10 RBC 4.18 Mil/uL (4.40-5.90) L 10/26/17 06:10 Hgb 12.6 g/dL (12.0-18.0) 10/26/17 06:10 Hct 37.5 % (35.0-51.0) 10/26/17 06:10 MCV 89.7 fl (80.0-94.0) 10/26/17 06:10 MCH 30.0 pg (27.0-31.0) 10/26/17 06:10 MCHC 33.5 g/dL (33.0-37.0) 10/26/17 06:10 RDW 16.9 % (11.5-14.5) H 10/26/17 06:10 Plt Count 214 K/uL (130-400) 10/26/17 06:10 MPV 7.7 fl (7.2-11.7) 10/22/17 15:34 Neut % (Auto) 73.5 % (50.0-75.0) 10/22/17 15:34 Lymph % (Auto) 12.9 % (20.0-40.0) L 10/22/17 15:34 [place]er % (Auto) 12.2 % (0.0-10.0) H 10/22/17 15:34 Eos % (Auto) 0.9 % (0.0-4.0) 10/22/17 15:34 Baso % (Auto) 0.5 % (0.0-2.0) 10/22/17 15:34 Neut # (Auto) 5.7 K/uL (1.8-7.0) 10/22/17 15:34 Lymph # (Auto) 1.0 K/uL (1.0-4.3) 10/22/17 15:34 [place] # (Auto) 0.9 K/uL (0.0-0.8) H 10/22/17 15:34 Eos # (Auto) 0.1 K/uL (0.0-0.7) 10/22/17 15:34 Baso # (Auto) 0.0 K/uL (0.0-0.2) 10/22/17 15:34 ESR 45 mm/hr (0-15) H 10/24/17 05:55 Sodium 142 mmol/l (132-148) 10/26/17 06:10 Potassium 3.5 MMOL/L (3.6-5.0) L 10/26/17 06:10 Chloride 102 mmol/L (98-107) 10/26/17 06:10 Carbon Dioxide 22 mmol/L (22-30) 10/26/17 06:10 Anion Gap 22 (10-20) H 10/26/17 06:10 BUN 3 mg/dl (9-20) L 10/26/17 06:10 Creatinine 0.6 mg/dl (0.8-1.5) L 10/26/17 06:10 Est GFR ( Amer) > 60 10/26/17 06:10 Est GFR (Non-Af Amer) > 60 10/26/17 06:10 POC Glucose (mg/dL) 114 mg/dL (65-110) H 10/22/17 15:40 Random Glucose 127 mg/dL (75-110) H 10/26/17 06:10 Uric Acid 5.8 mg/Dl (3.5-8.5) 10/25/17 07:48 Calcium 9.3 mg/dL (8.4-10.2) 10/26/17 06:10 Total Bilirubin 1.2 mg/dl (0.2-1.3) 10/26/17 06:10 GGT 933 U/L (8-78) H 10/24/17 10:17 AST 25 U/L (17-59) 10/26/17 06:10 ALT 42 U/L (21-72) 10/26/17 06:10 Alkaline Phosphatase 150 U/L (38-126) H 10/26/17 06:10 Total Protein 7.0 G/DL (6.3-8.2) 10/26/17 06:10 Albumin 3.5 g/dL (3.5-5.0) 10/26/17 06:10 Globulin 3.4 gm/dL (2.2-3.9) 10/26/17 06:10 Albumin/Globulin Ratio 1.0 (1.0-2.1) 10/26/17 06:10 Triglycerides 113 mg/DL (0-149) 10/24/17 05:55 Cholesterol 175 mg/dL (0-199) 10/24/17 05:55 LDL Cholesterol Direct 109 mg/dL (0-129) 10/24/17 05:55 HDL Cholesterol 34 MG/DL (30-70) 10/24/17 05:55 Amylase 299 U/L (30-110) H D 10/24/17 05:55 Lipase 412 U/L (23-300) H 10/22/17 15:34 Vitamin B12 274 pg/mL (239-931) 10/24/17 05:55 Folate > 20.0 ng/mL 10/24/17 05:55 Urine Color Yellow (YELLOW) 10/22/17 16:15 Urine Clarity Clear (Clear) 10/22/17 16:15 Urine pH 9.0 (5.0-8.0) 10/22/17 16:15 Ur Specific [place] 1.013 (1.003-1.030) 10/22/17 16:15 Urine Protein Negative mg/dL (NEGATIVE) 10/22/17 16:15 Urine Glucose (UA) Neg mg/dL (Normal) 10/22/17 16:15 Urine Ketones Negative mg/dL (NEGATIVE) 10/22/17 16:15 Urine Blood Negative (NEGATIVE) 10/22/17 16:15 Urine Nitrate Negative (NEGATIVE) 10/22/17 16:15 Urine Bilirubin Negative (NEGATIVE) 10/22/17 16:15 Urine Urobilinogen 0.2-1.0 mg/dL (0.2-1.0) 10/22/17 16:15 Ur Leukocyte Esterase Neg Radha/uL (Negative) 10/22/17 16:15 Urine RBC (Auto) < 1 /hpf (0-3) 10/22/17 16:15 Urine Microscopic WBC < 1 /hpf (0-5) 10/22/17 16:15 Urine Bacteria Rare (<OCC) 10/22/17 16:15 Alcohol, Quantitative < 10 mg/dl (0-10) 10/22/17 15:34 Attending/Attestation - Attestation I have personally seen and examined this patient.: Yes I have fully participated in the care of the patient.: Yes I have reviewed all pertinent clinical information, including history, physical exam and plan: Yes
[2017-10-26 16:32] VITALS: BP 129/87; PULSE 96; TEMP 98.2
== END 2017-10-26 18:22 | disposition home or self-care (01) | DRG 440 ==
LOC: H.ER 14:02 → H.ERHOLD 22:48 → H.MEDSURG1 10-23 01:12 → OBSVTOIN 10-23 16:29
PROVIDERS: ADMIT Family Medicine; ATTEND Family Medicine
PROC: 3E0234Z Introduction of Serum, Toxoid and Vaccine into Muscle, Percutaneous Approach (ICD-10-PCS; principal; 2017-10-26)
DX: K85.20 Alcohol induced acute pancreatitis without necrosis or infection (principal); K86.1 Other chronic pancreatitis; E87.6 Hypokalemia; F10.10 Alcohol abuse, uncomplicated; G89.29 Other chronic pain; D86.89 Sarcoidosis of other sites; I10 Essential (primary) hypertension; G62.9 Polyneuropathy, unspecified; M06.9 Rheumatoid arthritis, unspecified; M54.5 Low back pain; Z23 Encounter for immunization; Z79.899 Other long term (current) drug therapy; Z88.1 Allergy status to other antibiotic agents; Z87.891 Personal history of nicotine dependence

== ENCOUNTER 2018-04-08 09:31 | Inpatient (IN) | payer OTHER ==
[2018-04-08 09:39] VITALS: BMI 29.5
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
[2018-04-08 10:27] LABS: BASO % 0.2 % (0.0-2.0); EOS # 0.1 K/uL (0.0-0.7); EOS % 1.7 % (0.0-4.0); HEMOGLOBIN 13.1 g/dL (12.0-18.0); LYMPH # 1.5 K/uL (1.0-4.3); LYMPH % 46.5 % (20.0-40.0); MEAN CELL VOLUME 92.1 fl (80.0-94.0); MEAN CORPUSCULAR HEMOGLOBIN 32.4 pg (27.0-31.0); MEAN CORPUSCULAR HGB CONC 35.2 g/dL (33.0-37.0); MEAN PLATELET VOLUME 6.8 fl (7.2-11.7); MONO # 0.6 K/uL (0.0-0.8); MONO % 19.7 % (0.0-10.0); NEUT % 31.9 % (50.0-75.0); NRBC % 0.5 % (0.0-0.0); RBC 4.06 Mil/uL (4.40-5.90); RED CELL DISTRIBUTION WIDTH 16.1 % (11.5-14.5); WHITE BLOOD COUNT 3.2 K/uL (4.8-10.8)
[2018-04-08] MEDS: Lactated Ringer's 1,000 ML IV SCH ×5 (10:27→20:30)
[2018-04-08 10:28] LABS: VENOUS BLOOD GAS BASE EXCESS 4.5 mmol/L (0.0-2.0); VENOUS BLOOD GAS PCO2 46 mmHg (40-60); VENOUS BLOOD GAS PO2 44 mm/Hg (30-55); VENOUS BLOOD PH 7.42 (7.32-7.43)
[2018-04-08 10:41] LABS: PROTHROMBIN TIME 10.8 Seconds (9.8-13.1)
[2018-04-08 10:42] LABS: ALT/SGPT 323 U/L (21-72); AST/SGOT 447 U/L (17-59); BLOOD UREA NITROGEN 6 mg/dl (9-20); CALCIUM 9.4 mg/dL (8.4-10.2); GFR NON-AFRICAN AMERICAN > 60; LIPASE 934 U/L (23-300)
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
[2018-04-08] MEDS ORDERED: Naproxen 500 MG TAB PO PRN (13:29)
[2018-04-08] MEDS ORDERED: oxyCODONE 10 mg Immediate Release Tab PO PRN (13:29)
[2018-04-08] MEDS ORDERED: Albuterol HFA 90 mcg/actuation (8 g) IH PRN (13:29)
[2018-04-08] MEDS ORDERED: Morphine 4 MG/ML VIAL ONE (13:38)
[2018-04-08 13:39] LABS: VENOUS BLOOD GAS BASE EXCESS 5.2 mmol/L (0.0-2.0); VENOUS BLOOD GAS PCO2 52 mmHg (40-60); VENOUS BLOOD GAS PO2 30 mm/Hg (30-55); VENOUS BLOOD PH 7.39 (7.32-7.43)
--- NOTE | 2018-04-08 15:50 | US ---
Date of service: 04/08/2018 PROCEDURE: Bilateral lower extremity venous duplex Doppler. HISTORY: rule out dvt COMPARISON: None available. TECHNIQUE: Bilateral common femoral, superficial femoral, popliteal and posterior tibial veins were evaluated. Flow was assessed with color Doppler, compressibility, assessment of phasic flow and augmentation response. FINDINGS: COMMON FEMORAL VEIN: Right CFV: Unremarkable. Left CFV: Unremarkable. SUPERFICIAL FEMORAL VEIN: Right SFV: Unremarkable. Left SFV: Unremarkable. POPLITEAL VEIN: Right Popliteal: Unremarkable. Left Popliteal: Unremarkable. POSTERIOR TIBIAL VEIN: Right PTV: Unremarkable. Left PTV: Unremarkable. OTHER FINDINGS: None. IMPRESSION: No evidence of deep venous thrombosis.
[2018-04-09] MEDS: Lactated Ringer's 1,000 ML IV SCH ×4 (00:45→15:12)
[2018-04-09 07:10] LABS: HEMOGLOBIN 12.3 g/dL (12.0-18.0); MEAN CELL VOLUME 91.5 fl (80.0-94.0); MEAN CORPUSCULAR HEMOGLOBIN 32.1 pg (27.0-31.0); MEAN CORPUSCULAR HGB CONC 35.1 g/dL (33.0-37.0); RBC 3.82 Mil/uL (4.40-5.90); WHITE BLOOD COUNT 2.1 K/uL (4.8-10.8)
[2018-04-09 07:15] LABS: ALB/GLOB RATIO 0.9 (1.0-2.1); ALBUMIN 3.4 g/dL (3.5-5.0); ALT/SGPT 267 U/L (21-72); AST/SGOT 307 U/L (17-59); BLOOD UREA NITROGEN 5 mg/dl (9-20); CALCIUM 8.9 mg/dL (8.4-10.2); GFR NON-AFRICAN AMERICAN > 60
[2018-04-09] MEDS ORDERED: Pantoprazole 40 mg EC Tab PO SCH (09:00)
--- NOTE | 2018-04-09 09:51 | CP.PCM.PN ---
Subjective - Date & Time of Evaluation Date of Evaluation: 04/09/18 Time of Evaluation: 08:00 - Subjective Subjective: Pt is seen and examined at bed side. Pt state that he could not sleep due to pain, he requested ativan and increase pain medication dose, but was not approved by doctor. Pt still complain of abd pain and request to see doctor Christo ( pain management). Pt have no other complain as per today. Denies shacking feeling, confused, heat, fever chills, N/V diarrhea or constipation, Pt denies any chest pain sob dysuria or polyuria Objective - Vital Signs/Intake and Output Vital Signs (last 24 hours): Temp Pulse Resp BP Pulse Ox 97.9 F 95 H 18 146/98 H 100 04/09/18 05:00 04/09/18 05:00 04/09/18 05:00 04/09/18 05:00 04/09/18 05:00 - Medications Medications: Current Medications Albuterol (Ventolin Hfa 90 Mcg/Actuation (8 G)) 2 puff IH Q4H PRN PRN Reason: Shortness of Breath Last Admin: 04/08/18 17:54 Dose: 2 puff Chlordiazepoxide (Librium) 10 mg PO Q6 PRN PRN Reason: Symptoms of alcohol withdrawl Clonidine HCl (Catapres) 0.1 mg PO BID GARY Enoxaparin Sodium (Lovenox) 40 mg SC DAILY GARY; Protocol Hydromorphone HCl (Dilaudid) 1 mg IVP Q4 PRN PRN Reason: Pain, severe (8-10) Last Admin: 04/09/18 06:17 Dose: 1 mg Lactated Ringer's (Lactated Ringer's) 1,000 mls @ 200 mls/hr IV .Q5H GARY Last Admin: 04/08/18 11:39 Dose: 200 mls/hr Lactated Ringer's (Lactated Ringer's) 1,000 mls @ 120 mls/hr IV .Q8H20M GARY Last Admin: 04/09/18 06:19 Dose: 120 mls/hr Losartan Potassium (Cozaar) 25 mg PO DAILY GARY Ondansetron HCl (Zofran Inj) 4 mg IVP Q6 PRN PRN Reason: Nausea/Vomiting Last Admin: 04/09/18 01:38 Dose: 4 mg Pantoprazole Sodium (Protonix Ec Tab) 40 mg PO DAILY GARY Thiamine HCl (Vitamin B1 Tab) 50 mg PO DAILY GARY - Labs Labs: 04/09/18 04:30 04/09/18 04:30 PT 10.8 Seconds (9.8-13.1) 04/08/18 10:10 INR 1.0 04/08/18 10:10 - Constitutional Appears: Non-toxic, No Acute Distress - Head Exam Head Exam: ATRAUMATIC, NORMAL INSPECTION, NORMOCEPHALIC - Eye Exam Eye Exam: EOMI, Normal appearance, PERRL Pupil Exam: NORMAL ACCOMODATION, PERRL - ENT Exam ENT Exam: Mucous Membranes Moist, Normal Exam - Neck Exam Neck Exam: Normal Inspection - Respiratory Exam Respiratory Exam: Clear to Ausculation Bilateral, NORMAL BREATHING PATTERN - Cardiovascular Exam Cardiovascular Exam: REGULAR RHYTHM, +S1, +S2 - GI/Abdominal Exam GI & Abdominal Exam: Distended, Soft, Tenderness, Normal Bowel Sounds Additional comments: Generalized tenderness noted - Extremities Exam Extremities Exam: Full ROM, Normal Inspection - Back Exam Back Exam: NORMAL INSPECTION. absent: CVA tenderness (L), CVA tenderness (R) - Neurological Exam Neurological Exam: Alert, Awake, Oriented x3 - Psychiatric Exam Psychiatric exam: Normal Affect, Normal Mood - Skin Skin Exam: Dry, Intact, Normal Color, Warm Assessment and Plan - Assessment and Plan (Free Text) Assessment: Acute pancreatitis sec due to Alcohol consumption Pt Vitals WNL except uncontrolled BP 146/98 95hr WBC is 2.1 AST 447H-> 307 ALT 323H ->267 Alk Phos 241H -> 217 Lipase: 934H-> 877 Will advance Full liquied Continue IV Fluid LR 1 L 120 ml/h Continue Zofran 4mg Dilauded 1mg Q4h Pantoprazole 40mg Thiamine 50mg F/u Call GI F/U vitals or exacerbation Chronic alcohol consumption Alcohol level: 374 Will start Librium PRN for withdraw symptoms Leukopenia WBC of 2.1 Will order HIV test. HTN Chronic hypertention Will start on Clonidine.01 mg D/C losartan DVT prophylaxis SCD Lovenox 40 SC
--- NOTE | 2018-04-09 12:35 | RAD ---
Date of service: 04/08/2018 HISTORY: SOB. Hx of Sarcoid COMPARISON: 10/22/2017. FINDINGS: LUNGS: The lungs are clear. PLEURA: No significant pleural effusion identified, no pneumothorax apparent. CARDIOVASCULAR: Normal. OSSEOUS STRUCTURES: No significant abnormalities. VISUALIZED UPPER ABDOMEN: Normal. OTHER FINDINGS: There is chronic elevation of the right hemidiaphragm. IMPRESSION: No acute findings.
[2018-04-09] MEDS ORDERED: HYDROmorphone 1 mg/ml ISec IVP PRN (13:55)
--- NOTE | 2018-04-09 13:59 | CP.PCM.PN ---
Subjective - Date & Time of Evaluation Date of Evaluation: 04/09/18 Time of Evaluation: 09:00 - Subjective Subjective: 38 yo man well known to me from previous admissions is referred for pain management. He states that due to recent life events, he relapsed and drank a good amount of vodka, but not the whole bottle as previously indicated. His previous admissions was in September according to the patient. At home he takes Oxycodone 10mg for chronic back pain. During previous admissions he'd be put on MS contin and Dilaudid IV. I indicated to the patient that I'd try to control his pain using equivalent amount of opioids as compared to his home regimen. He requested 1.5mg Dilaudidi IV q3h however. Objective - Vital Signs/Intake and Output Vital Signs (last 24 hours): Temp Pulse Resp BP Pulse Ox 97.9 F 95 H 18 146/98 H 100 04/09/18 05:00 04/09/18 05:00 04/09/18 05:00 04/09/18 05:00 04/09/18 05:00 - Medications Medications: Current Medications Albuterol (Ventolin Hfa 90 Mcg/Actuation (8 G)) 2 puff IH Q4H PRN PRN Reason: Shortness of Breath Last Admin: 04/08/18 17:54 Dose: 2 puff Chlordiazepoxide (Librium) 10 mg PO Q6 PRN PRN Reason: Symptoms of alcohol withdrawl Clonidine HCl (Catapres) 0.1 mg PO BID [facility] Enoxaparin Sodium (Lovenox) 40 mg SC DAILY [facility]; Protocol Lactated Ringer's (Lactated Ringer's) 1,000 mls @ 200 mls/hr IV .Q5H GARY Last Admin: 04/08/18 11:39 Dose: 200 mls/hr Lactated Ringer's (Lactated Ringer's) 1,000 mls @ 120 mls/hr IV .Q8H20M [facility] Last Admin: 04/09/18 06:19 Dose: 120 mls/hr Losartan Potassium (Cozaar) 25 mg PO DAILY [facility] Ondansetron HCl (Zofran Inj) 4 mg IVP Q6 PRN PRN Reason: Nausea/Vomiting Last Admin: 04/09/18 01:38 Dose: 4 mg Pantoprazole Sodium (Protonix Ec Tab) 40 mg PO DAILY GARY Thiamine HCl (Vitamin B1 Tab) 50 mg PO DAILY GARY - Labs Labs: 04/09/18 04:30 04/09/18 04:30 PT 10.8 Seconds (9.8-13.1) 04/08/18 10:10 INR 1.0 04/08/18 10:10 - GI/Abdominal Exam GI & Abdominal Exam: Soft, Tenderness Assessment and Plan (1) Abdominal pain Assessment & Plan: 38 yo man w/ abdominal pain from EtOH abuse and chronic pancreaitis. - increase Dilaudid IV to 1mg q3h PRN, would not increase further - f/u GI recommendations Status: Acute
[2018-04-09] MEDS: Pantoprazole 40 mg EC Tab PO SCH (15:04)
[2018-04-09] MEDS: Enoxaparin 40 mg Syringe SC SCH (15:04)
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
[2018-04-10 05:53] LABS: BASO % 0.2 % (0.0-2.0); EOS % 1.3 % (0.0-4.0); LYMPH # 0.8 K/uL (1.0-4.3); LYMPH % 33.1 % (20.0-40.0); MEAN CORPUSCULAR HEMOGLOBIN 32.5 pg (27.0-31.0); MEAN CORPUSCULAR HGB CONC 35.3 g/dL (33.0-37.0); MEAN PLATELET VOLUME 7.5 fl (7.2-11.7); MONO # 0.7 K/uL (0.0-0.8); MONO % 30.3 % (0.0-10.0); NEUT # 0.8 K/uL (1.8-7.0); NEUT % 35.1 % (50.0-75.0); NRBC % 0.4 % (0.0-0.0); PLATELET COUNT 120 K/uL (130-400); RBC 3.99 Mil/uL (4.40-5.90); RED CELL DISTRIBUTION WIDTH 15.6 % (11.5-14.5); WHITE BLOOD COUNT 2.4 K/uL (4.8-10.8)
[2018-04-10 06:17] LABS: ALBUMIN 3.7 g/dL (3.5-5.0); ALT/SGPT 220 U/L (21-72); AST/SGOT 191 U/L (17-59); BLOOD UREA NITROGEN 3 mg/dl (9-20); CALCIUM 9.2 mg/dL (8.4-10.2); GFR NON-AFRICAN AMERICAN > 60
[2018-04-10] MEDS ORDERED: Potassium Chloride 20 mEq ER Tab PO ONE ×2 (07:00→22:52)
[2018-04-10] MEDS: Enoxaparin 40 mg Syringe SC SCH (08:23)
[2018-04-10] MEDS: Pantoprazole 40 mg EC Tab PO SCH (08:23)
[2018-04-10 11:27] LABS: ANISOCYTOSIS SLIGHT; LYMPHOCYTE 40 % (20-50); MONOCYTE 28 % (0-10); NEUTROPHIL 32 % (42-75); PLATELET ESTIMATE SLIGHTLY DECREASED (NORMAL); TOTAL CELLS COUNTED 100
[2018-04-10] MEDS ORDERED: Iohexol 240 (50 ml) PO ONE (11:32)
[2018-04-10] MEDS ORDERED: Iohexol 300 100 ML IJ ONE (13:34)
[2018-04-10] MEDS ORDERED: Sodium Chloride 0.9% 50 ML IV ONE (13:35)
--- NOTE | 2018-04-10 15:19 | CP.PCM.PN ---
Subjective - Date & Time of Evaluation Date of Evaluation: 04/10/18 Time of Evaluation: 15:16 - Subjective Subjective: Ongoing midabdominal pain though pain is not quite as strong. Having CT abdomen today. Objective - Vital Signs/Intake and Output Vital Signs (last 24 hours): Temp Pulse Resp BP Pulse Ox 99.2 F 83 16 127/88 100 04/10/18 12:56 04/10/18 12:56 04/10/18 12:56 04/10/18 12:56 04/10/18 12:56 - Medications Medications: Current Medications Albuterol (Ventolin Hfa 90 Mcg/Actuation (8 G)) 2 puff IH Q4H PRN PRN Reason: Shortness of Breath Last Admin: 04/08/18 17:54 Dose: 2 puff Chlordiazepoxide (Librium) 10 mg PO Q8 [facility] Clonidine HCl (Catapres) 0.1 mg PO BID [facility] Last Admin: 04/10/18 08:20 Dose: 0.1 mg Enoxaparin Sodium (Lovenox) 40 mg SC DAILY [facility]; Protocol Last Admin: 04/10/18 08:23 Dose: Not Given Hydralazine HCl (Apresoline) 10 mg IV Q6 PRN PRN Reason: BLOOD PRESSURE ABOVE 150/90 Hydromorphone HCl (Dilaudid) 1 mg IVP Q3 PRN PRN Reason: Pain, severe (8-10) Last Admin: 04/10/18 12:13 Dose: 1 mg Losartan Potassium (Cozaar) 50 mg PO DAILY [facility] Last Admin: 04/10/18 08:21 Dose: 50 mg Ondansetron HCl (Zofran Inj) 4 mg IVP Q6 PRN PRN Reason: Nausea/Vomiting Last Admin: 04/09/18 01:38 Dose: 4 mg Pantoprazole Sodium (Protonix Ec Tab) 40 mg PO DAILY [facility] Last Admin: 04/10/18 08:23 Dose: 40 mg Thiamine HCl (Vitamin B1 Tab) 50 mg PO DAILY [facility] Last Admin: 04/10/18 08:23 Dose: 50 mg - Labs Labs: 04/10/18 04:40 04/10/18 04:40 PT 10.8 Seconds (9.8-13.1) 04/08/18 10:10 INR 1.0 04/08/18 10:10 - Head Exam Head Exam: ATRAUMATIC - Eye Exam Eye Exam: Normal appearance - ENT Exam ENT Exam: Mucous Membranes Moist - Neck Exam Neck Exam: Full ROM - Respiratory Exam Respiratory Exam: Clear to Ausculation Bilateral - Cardiovascular Exam Cardiovascular Exam: REGULAR RHYTHM, +S1, +S2 - GI/Abdominal Exam GI & Abdominal Exam: Tenderness Additional comments: midabdominal tenderness. Assessment and Plan (1) Abdominal pain Assessment & Plan: Clinically appears better today and labs are trending positively. Awaiting CT results. Status: Acute
--- NOTE | 2018-04-10 15:27 | CT ---
Date of service: 04/10/2018 PROCEDURE: CT Abdomen and Pelvis with contrast HISTORY: pancreatitis r/o biliary obstruction COMPARISON: CT scan of the abdomen and pelvis dated 10/22/2017 TECHNIQUE: Contrast dose: 95 mL Omnipaque 300 Radiation dose: Total exam DLP = 863.5 mGy-cm. This CT exam was performed using one or more of the following dose reduction techniques: Automated exposure control, adjustment of the mA and/or kV according to patient size, and/or use of iterative reconstruction technique. FINDINGS: LOWER THORAX: Patchy opacities in the lingula and posterior right lower lobe. Heart size normal. LIVER: Diffuse hepatic steatosis. No gross lesion or ductal dilatation. GALLBLADDER AND BILE DUCTS: Unremarkable. PANCREAS: Enlargement of 3.3 x 2.6 cm low-density collection within the uncinate process. Hypoattenuation of the pancreatic head with surrounding inflammatory change. No ductal dilatation. SPLEEN: Unremarkable. ADRENALS: Unremarkable. No mass. KIDNEYS AND URETERS: Unremarkable. No hydronephrosis. No solid mass. VASCULATURE: Unremarkable. No aortic aneurysm. BOWEL: Unremarkable. No obstruction. No gross mural thickening. APPENDIX: Normal appendix. PERITONEUM: Complex walled-off collection measuring 3.4 x 3.2 cm in the right mid abdomen posterior to colon. Redemonstration of 3.2 x 2.0 cm walled-off collection anterolateral to the 2nd part of the duodenum. Small fat containing umbilical hernia. No free fluid. No free air. LYMPH NODES: Unremarkable. No enlarged lymph nodes. BLADDER: Unremarkable. REPRODUCTIVE: Unremarkable. BONES: No acute fracture. L5 superior endplate Schmorl node. L5-S1 disc space narrowing with degenerative changes. OTHER FINDINGS: None. IMPRESSION: Probable acute pancreatitis involving the pancreatic head. Enlargement of intrapancreatic 3.3 x 2.6 cm low-density collection, likely a pseudocyst. Redemonstration of walled-off collection in the mesentery anterolateral to the 2nd portion of the duodenum measuring 3.2 x 2.0 cm. New 2.4 x 3.2 cm complex walled-off collection in the right mid abdomen posterior to the ascending colon. Findings likely represent sequelae of previous pancreatitis.
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
[2018-04-10] MEDS ORDERED: Albuterol-Ipratrop 3 mg / 0.5 (3 ml) UD ONE (21:18)
[2018-04-10] MEDS ORDERED: Albuterol-Ipratrop 3 mg / 0.5 (3 ml) UD INH STA ×2 (21:21→21:25)
--- NOTE | 2018-04-10 21:58 | PCM.RRT ---
<Prakash Nguyen - Last Filed: 04/10/18 22:14> [employer] Nurse Assessment - Situation [employer] Reason for Call: Respiratory Distress, Change in Mental Status I.Reason for [employer] - A) Acute Change in Patient: (Select all that apply): Staff member or family is worried about patient, Acute change in mental status - Neurological Status (Select all that apply): Alert, Responsive, Verbal, Confused - Respiratory Oxygen Delivery Method: Nasal Cannula @L/min, Face Mask @% - Respiratory Exam Respiratory Exam: Rales, Wheezes - Cardiovascular Exam Cardiovascular Exam: Tachycardia - Neurological Exam Neurological Exam: Alert, Awake Plan - Assessment of Findings&Treatment Plan 38 y/o male with PMHx of ETOH abuse, psoriasis admitted to hospital for pancreatitis. [employer] MA[employer]GER called by nurse due to AMS and dyspnea. [employer]GER arrived with Dr. Mills. Patient was alert, restless, agitated, anxious and SOB on initial exam. Unable to speak in full sentences. Wheezing and rales present. Denies chest pain or allergies. Initial vitalsLBP 145/84, HR 76. Patient given nasal cannula followed by albuterol nebulizer x 2. Soft restrains placed on B/L UE and LE. Repeat vitals after 5 mins BP 182/121, HR 130. EKG done stat showed sinus tachycardia without any ST changes. CBC w/diff, CMP, troponins, coags, mg, phos, Utox ordered, Ct head w/o contrast ordered. AMS and dyspnea improved after 10 mins. Patient AAOx3. BP 161/99, HR 96. - F/U CBC w/diff, CMP, troponins, coags, mg, phos, Utox - Will review Ct head - Monitor for any acute change - Patient to remain in Telemetry <Valentina Mills - Last Filed: 04/11/18 02:54> Attending/Attestation - Attestation I have personally seen and examined this patient.: Yes I have fully participated in the care of the patient.: Yes I have reviewed all pertinent clinical information, including history, physical exam and plan: Yes
[2018-04-10 22:02] LABS: BASO % 0.4 % (0.0-2.0); EOS % 0.3 % (0.0-4.0); HEMOGLOBIN 14.4 g/dL (12.0-18.0); LYMPH # 1.5 K/uL (1.0-4.3); LYMPH % 40.6 % (20.0-40.0); MEAN CELL VOLUME 94.3 fl (80.0-94.0); MEAN CORPUSCULAR HEMOGLOBIN 32.5 pg (27.0-31.0); MEAN CORPUSCULAR HGB CONC 34.4 g/dL (33.0-37.0); MEAN PLATELET VOLUME 7.6 fl (7.2-11.7); MONO # 0.7 K/uL (0.0-0.8); MONO % 20.4 % (0.0-10.0); NEUT # 1.4 K/uL (1.8-7.0); NEUT % 38.3 % (50.0-75.0); NRBC % 0.2 % (0.0-0.0); RBC 4.44 Mil/uL (4.40-5.90); RED CELL DISTRIBUTION WIDTH 16.1 % (11.5-14.5); WHITE BLOOD COUNT 3.6 K/uL (4.8-10.8)
[2018-04-10 22:15] LABS: INR 1.1; PROTHROMBIN TIME 11.8 Seconds (9.8-13.1)
[2018-04-10 22:18] LABS: ALB/GLOB RATIO 1.1 (1.0-2.1); ALBUMIN 4.3 g/dL (3.5-5.0); ALT/SGPT 209 U/L (21-72); AST/SGOT 185 U/L (17-59); BLOOD UREA NITROGEN 5 mg/dl (9-20); CALCIUM 9.4 mg/dL (8.4-10.2); GFR NON-AFRICAN AMERICAN > 60
[2018-04-10 22:23] LABS: BARBITURATES, UR NEGATIVE (NEGATIVE); BENZODIAZEPINES, UR POSITIVE (NEGATIVE); OPIATES, UR POSITIVE (NEGATIVE); PHENCYCLIDINE, UR NEGATIVE (NEGATIVE)
[2018-04-10] MEDS ORDERED: Magnesium Sulfate 4 gm/100 ml 4 GM/100 ML BAG IVPB STA (22:24)
[2018-04-10 22:26] LABS: URINE BACTERIA RARE (<OCC); URINE BILIRUBIN NEGATIVE (NEGATIVE); URINE BLOOD NEGATIVE (NEGATIVE); URINE CLARITY SLIGHTY-CLOUDY (Clear); URINE COLOR YELLOW (YELLOW); URINE GLUCOSE (UA) 150 mg/dL (Normal); URINE LEUKOCYTE ESTERASE NEG Leu/uL (Negative); URINE PROTEIN 100 mg/dL (NEGATIVE); URINE UROBILINOGEN 0.2-1.0 mg/dL (0.2-1.0)
[2018-04-11 05:25] VITALS: RESP 18
[2018-04-11 07:06] LABS: BASO % 0.2 % (0.0-2.0); EOS % 0.1 % (0.0-4.0); HEMOGLOBIN 14.1 g/dL (12.0-18.0); LYMPH # 1.2 K/uL (1.0-4.3); LYMPH % 19.3 % (20.0-40.0); MEAN CELL VOLUME 92.7 fl (80.0-94.0); MEAN CORPUSCULAR HEMOGLOBIN 32.5 pg (27.0-31.0); MEAN CORPUSCULAR HGB CONC 35.1 g/dL (33.0-37.0); MEAN PLATELET VOLUME 7.8 fl (7.2-11.7); MONO # 1.4 K/uL (0.0-0.8); MONO % 22.1 % (0.0-10.0); NEUT # 3.7 K/uL (1.8-7.0); NEUT % 58.3 % (50.0-75.0); NRBC % 0.2 % (0.0-0.0); PLATELET COUNT 147 K/uL (130-400); RBC 4.33 Mil/uL (4.40-5.90); RED CELL DISTRIBUTION WIDTH 16.3 % (11.5-14.5); WHITE BLOOD COUNT 6.4 K/uL (4.8-10.8)
[2018-04-11 07:27] LABS: ALBUMIN 4.3 g/dL (3.5-5.0); ALT/SGPT 200 U/L (21-72); AST/SGOT 170 U/L (17-59); BLOOD UREA NITROGEN 5 mg/dl (9-20); CALCIUM 9.5 mg/dL (8.4-10.2); GFR NON-AFRICAN AMERICAN > 60; LIPASE 504 U/L (23-300)
--- NOTE | 2018-04-11 07:53 | CP.PCM.PN ---
Subjective - Date & Time of Evaluation Date of Evaluation: 04/11/18 Time of Evaluation: 07:51 - Subjective Subjective: Surgery: Dr. Cortes Pt seen and examined. Overnight an PRESS SECRETARY was called for AMS/SOB and pt was sent for CT head, CXR and other appropriate lab work was obtained. This morning pt is doing well, states he feels better, AAOx3 and SOB has resolved. He admits to some abdominal pain in the epigastric region but states it's a lot better comp ared to when he came in. Tolerating diet & denies N/V, F/C. Objective - Vital Signs/Intake and Output Vital Signs (last 24 hours): Temp Pulse Resp BP Pulse Ox 97.5 F L 80 18 135/87 100 04/11/18 07:44 04/11/18 07:44 04/11/18 07:44 04/11/18 07:44 04/11/18 07:44 - Medications Medications: Current Medications Albuterol (Ventolin Hfa 90 Mcg/Actuation (8 G)) 2 puff IH Q4H PRN PRN Reason: Shortness of Breath Last Admin: 04/08/18 17:54 Dose: 2 puff Chlordiazepoxide (Librium) 10 mg PO Q8 [facility] Last Admin: 04/11/18 00:08 Dose: 10 mg Clonidine HCl (Catapres) 0.1 mg PO BID [facility] Last Admin: 04/10/18 16:57 Dose: 0.1 mg Enoxaparin Sodium (Lovenox) 40 mg SC DAILY [facility]; Protocol Last Admin: 04/10/18 08:23 Dose: Not Given Hydralazine HCl (Apresoline) 10 mg IV Q6 PRN PRN Reason: BLOOD PRESSURE ABOVE 150/90 Last Admin: 04/10/18 17:55 Dose: 10 mg Hydromorphone HCl (Dilaudid) 1 mg IVP Q3 PRN PRN Reason: Pain, severe (8-10) Last Admin: 04/11/18 06:02 Dose: 1 mg Losartan Potassium (Cozaar) 50 mg PO DAILY [facility] Last Admin: 04/10/18 08:21 Dose: 50 mg Ondansetron HCl (Zofran Inj) 4 mg IVP Q6 PRN PRN Reason: Nausea/Vomiting Last Admin: 04/09/18 01:38 Dose: 4 mg Pantoprazole Sodium (Protonix Ec Tab) 40 mg PO DAILY [facility] Last Admin: 04/10/18 08:23 Dose: 40 mg Thiamine HCl (Vitamin B1 Tab) 50 mg PO DAILY [facility] Last Admin: 04/10/18 08:23 Dose: 50 mg - Labs Labs: 04/11/18 06:51 04/11/18 06:51 PT 11.8 Seconds (9.8-13.1) 04/10/18 21:58 INR 1.1 04/10/18 21:58 APTT 29.0 Seconds (25.6-37.1) 04/10/18 21:58 - Constitutional Appears: Well, No Acute Distress - Eye Exam Eye Exam: Normal appearance - ENT Exam ENT Exam: Mucous Membranes Moist - Respiratory Exam Respiratory Exam: NORMAL BREATHING PATTERN - Cardiovascular Exam Cardiovascular Exam: RRR - GI/Abdominal Exam GI & Abdominal Exam: Soft, Tenderness (epigastric/supraumbilical region ). absent: Distended, Guarding, Rebound - Neurological Exam Neurological Exam: Alert, Awake, Oriented x3 - Skin Skin Exam: Dry, Warm Assessment and Plan - Assessment and Plan (Free Text) Assessment: 38M with pancreatitis 2/2 EtOH with pancreatic pseudocyst Plan: - cont current management - no plan for surgical intervention at this time - d/w Dr. Sebastian Candelaria
[2018-04-11] MEDS: Pantoprazole 40 mg EC Tab PO SCH (08:38)
[2018-04-11] MEDS: Enoxaparin 40 mg Syringe SC SCH ×2 (08:38→08:42)
--- NOTE | 2018-04-11 08:59 | CT ---
Date of service: 04/10/2018 PROCEDURE: CT HEAD WITHOUT CONTRAST. HISTORY: AMS, dyspnea COMPARISON: 09/18/2017 TECHNIQUE: Axial computed tomography images were obtained through the head/brain without intravenous contrast. Radiation dose: Total exam DLP = 826.55 mGy-cm. This CT exam was performed using one or more of the following dose reduction techniques: Automated exposure control, adjustment of the mA and/or kV according to patient size, and/or use of iterative reconstruction technique. FINDINGS: HEMORRHAGE: No intracranial hemorrhage. BRAIN: No mass effect or edema. Minimal frontal atrophy common nonspecific. Slightly greater than expected for patient age. No evidence of acute infarct. VENTRICLES: Unremarkable. No hydrocephalus. CALVARIUM: Unremarkable. PARANASAL SINUSES: Small sphenoid and bilateral maxillary retention cysts/polyps. MASTOID AIR CELLS: Unremarkable as visualized. No inflammatory changes. OTHER FINDINGS: None. IMPRESSION: No intracranial mass, hemorrhage or evidence of acute infarct. Paranasal sinus retention cysts/polyps. Minimal frontal atrophy. The preliminary findings for this examination were reported by [facility] at 11:14 p.m. on 04/10/2018. There is concurrence of this report with the preliminary findings.
[2018-04-11 10:45] LABS: BASOPHIL 1 % (0-2); LYMPHOCYTE 15 % (20-50); MONOCYTE 15 % (0-10); NEUTROPHIL 64 % (42-75); REACTIVE LYMPHOCYTES 5 % (0-0); TOTAL CELLS COUNTED 100
[2018-04-11 10:46] LABS: PLATELET ESTIMATE NORMAL (NORMAL)
[2018-04-11 10:47] LABS: ANISOCYTOSIS SLIGHT
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
[2018-04-11 12:15] VITALS: BP 124/83; PULSE 86; TEMP 99.1; O2SAT 100
--- NOTE | 2018-04-11 12:39 | RAD ---
Date of service: 04/10/2018 HISTORY: dyspnea, AMS COMPARISON: Chest radiograph dated 04/08/2018. TECHNIQUE: Chest PA and lateral FINDINGS: LUNGS: No active pulmonary disease. PLEURA: Stable elevation of the right hemidiaphragm. No significant pleural effusion identified. No pneumothorax apparent. CARDIOVASCULAR: Normal. OSSEOUS STRUCTURES: Unchanged. VISUALIZED UPPER ABDOMEN: Normal. OTHER FINDINGS: None. IMPRESSION: No active disease.
--- NOTE | 2018-04-11 14:18 | CP.PCM.PN ---
Subjective - Date & Time of Evaluation Date of Evaluation: 04/11/18 Time of Evaluation: 10:00 - Subjective Subjective: Patient tolerating diet and pain controlled. Objective - Vital Signs/Intake and Output Vital Signs (last 24 hours): Temp Pulse Resp BP Pulse Ox 99.1 F 86 18 124/83 100 04/11/18 12:15 04/11/18 12:15 04/11/18 12:15 04/11/18 12:15 04/11/18 12:15 - Medications Medications: Current Medications Albuterol (Ventolin Hfa 90 Mcg/Actuation (8 G)) 2 puff IH Q4H PRN PRN Reason: Shortness of Breath Last Admin: 04/08/18 17:54 Dose: 2 puff Chlordiazepoxide (Librium) 10 mg PO Q8 [facility] Last Admin: 04/11/18 08:37 Dose: 10 mg Clonidine HCl (Catapres) 0.1 mg PO BID [facility] Last Admin: 04/11/18 08:39 Dose: 0.1 mg Enoxaparin Sodium (Lovenox) 40 mg SC DAILY [facility]; Protocol Last Admin: 04/11/18 08:42 Dose: Not Given Hydralazine HCl (Apresoline) 10 mg IV Q6 PRN PRN Reason: BLOOD PRESSURE ABOVE 150/90 Last Admin: 04/10/18 17:55 Dose: 10 mg Hydromorphone HCl (Dilaudid) 1 mg IVP Q3 PRN PRN Reason: Pain, severe (8-10) Last Admin: 04/11/18 12:14 Dose: 1 mg Losartan Potassium (Cozaar) 50 mg PO DAILY [facility] Last Admin: 04/11/18 08:38 Dose: 50 mg Ondansetron HCl (Zofran Inj) 4 mg IVP Q6 PRN PRN Reason: Nausea/Vomiting Last Admin: 04/09/18 01:38 Dose: 4 mg Pantoprazole Sodium (Protonix Ec Tab) 40 mg PO DAILY [facility] Last Admin: 04/11/18 08:38 Dose: 40 mg Thiamine HCl (Vitamin B1 Tab) 50 mg PO DAILY [facility] Last Admin: 04/11/18 08:38 Dose: 50 mg - Labs Labs: 04/11/18 06:51 04/11/18 06:51 PT 11.8 Seconds (9.8-13.1) 04/10/18 21:58 INR 1.1 04/10/18 21:58 APTT 29.0 Seconds (25.6-37.1) 04/10/18 21:58 - Head Exam Head Exam: ATRAUMATIC - Eye Exam Eye Exam: PERRL Pupil Exam: PERRL - ENT Exam ENT Exam: Normal Exam - Neck Exam Neck Exam: Full ROM - Respiratory Exam Respiratory Exam: Clear to Ausculation Bilateral - Cardiovascular Exam Cardiovascular Exam: REGULAR RHYTHM, +S1, +S2 - GI/Abdominal Exam GI & Abdominal Exam: Soft, Tenderness Assessment and Plan (1) Abdominal pain Assessment & Plan: CT showed 3 3 cm pseodocysts adjacent to pancreas and in peritoneum. Pain under control at present. Need of alcohol abstinence and possibly mental health treatment discussed. Stable for discharge. Status: Acute
--- NOTE | 2018-04-11 21:16 | CARD ---
APPROVED REPORT Date of service: 04/10/2018 EKG Measurement Heart [id number] <Conclusion> Sinus tachycardia Otherwise normal ECG
== END 2018-04-11 14:24 | disposition home or self-care (01) | DRG 439 ==
LOC: H.ER 09:31 → H.ERHOLD 12:35 → H.TEL 16:03
DX: K85.20 Alcohol induced acute pancreatitis without necrosis or infection (principal); K86.3 Pseudocyst of pancreas; I10 Essential (primary) hypertension; M06.9 Rheumatoid arthritis, unspecified; G89.29 Other chronic pain; F10.129 Alcohol abuse with intoxication, unspecified; Y90.8 Blood alcohol level of 240 mg/100 ml or more; Z87.891 Personal history of nicotine dependence; D72.819 Decreased white blood cell count, unspecified; L40.9 Psoriasis, unspecified; Z71.41 Alcohol abuse counseling and surveillance of alcoholic; D86.0 Sarcoidosis of lung; Z88.3 Allergy status to other anti-infective agents; R45.1 Restlessness and agitation; Z78.1 Physical restraint status; M19.90 Unspecified osteoarthritis, unspecified site; R06.00 Dyspnea, unspecified

== ENCOUNTER 2018-05-17 18:09 | Emergency (ER) | payer OTHER ==
[2018-05-17 18:10] VITALS: BMI 29.5
[2018-05-17] MEDS ORDERED: Sodium Chloride 0.9% 1,000 ML IV STA (19:19)
[2018-05-17] MEDS ORDERED: Morphine 4 MG/ML VIAL ONE (19:38)
[2018-05-17 20:05] LABS: BASO % 0.4 % (0.0-2.0); EOS % 0.4 % (0.0-4.0); HEMOGLOBIN 14.4 g/dL (12.0-18.0); MEAN CORPUSCULAR HEMOGLOBIN 33.3 pg (27.0-31.0); MEAN CORPUSCULAR HGB CONC 35.8 g/dL (33.0-37.0); MEAN PLATELET VOLUME 7.8 fl (7.2-11.7); MONO # 0.8 K/uL (0.0-0.8); MONO % 13.9 % (0.0-10.0); NEUT % 51.3 % (50.0-75.0); RBC 4.31 Mil/uL (4.40-5.90); RED CELL DISTRIBUTION WIDTH 15.6 % (11.5-14.5); WHITE BLOOD COUNT 5.9 K/uL (4.8-10.8)
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
[2018-05-17 20:12] LABS: PROTHROMBIN TIME 11.7 Seconds (9.8-13.1)
[2018-05-17 20:15] LABS: PARTIAL THROMBOPLASTIN TIME 31.7 Seconds (25.6-37.1)
[2018-05-17 20:21] LABS: ALB/GLOB RATIO 1.1 (1.0-2.1); ALBUMIN 4.4 g/dL (3.5-5.0); ALT/SGPT 113 U/L (21-72); AST/SGOT 189 U/L (17-59); BLOOD UREA NITROGEN 3 mg/dl (9-20); CALCIUM 9.7 mg/dL (8.4-10.2); GFR NON-AFRICAN AMERICAN > 60; LIPASE 476 U/L (23-300)
--- NOTE | 2018-05-17 20:31 | ED PDOC ---
- Laboratory Results Result Diagrams: 05/17/18 19:49 05/17/18 19:49 - ECG O2 Sat by Pulse Oximetry: 97 (RA) Pulse Ox Interpretation: Normal Medical Decision Making Medical Decision Making: Case endorsed to keno writer/runner, Rosie ESCOBEDO, at 1999 due to shift change. Pertinent details reviewed. Patient pending CT/US results, re-evaluation, and clinical sobriety. Labs reviewed. 2154 Ultrasound testes FINDINGS: Both testicles are of normal size and shape and are of homogeneous echo texture. The right testicle measures 5.7 x 2.1 x 3.4 cm. The right epididymis measures 1.1 x 1 x 1.2 cm. The left testicle measures 5.4 x 2.4 x 3.3 cm. The left epididymis measures 1 x 0.4 x 0.6 cm. Color Doppler images reveals increased flow to the right testicle compatible orchitis. There is no evidence for testicular torsion. There is no evidence of varicocele or hydrocele. Cyst is seen within the right testicle at the lower anterior aspect measuring 2 x 2 x 3 mm IMPRESSION: Findings consistent with right orchitis. Right testicilar cyst. 2157 Doxycycline PO ordered. Toradol 30mg IVP ordered for additional pain control. Patient resting comfortably on re-evaluation. 2354 --CT head FINDINGS: BRAIN: No acute intraparenchymal hemorrhage. No mass lesion. No CT evidence for acute territorial infarct. No midline shift or extra-axial collections. VENTRICLES: No hydrocephalus. ORBITS: The orbits are unremarkable. SINUSES AND MASTOIDS: Bilateral ethmoid and maxillary sinusitis. The mastoid air cells are clear. BONES: No fracture. SOFT TISSUES: Unremarkable. IMPRESSION: No acute intracranial abnormality. 0040 --CT chest/ABD/pelvis Findings Thorax: There is dense right lower lobe consolidation consistent with pneumonia. There is confluent opacity noted within the lingula, also consistent with pneumonia. There is a 3 mm right middle lobe nodule present. There is a 3 mm nodule noted in the right lung apex. Liver: Liver is enlarged measuring 21 cm in length. There is severe fatty infiltration of the liver. Gallbladder and bile ducts: Unremarkable. Pancreas: Unremarkable. No gross lesion or ductal dilatation. Spleen: Unremarkable. Adrenals: Unremarkable. No mass. Kidneys and ureters: Unremarkable. No hydronephrosis. No solid mass. Vasculature: Unremarkable. No aortic aneurysm. Bowel: There is severe circumferential wall thickening involving all small bowel segments with inflammatory stranding noted adjacent to duodenum consistent with severe enteritis. Appendix: Normal appendix. Peritoneum: Unremarkable. No free fluid. No free air. Lymph nodes: Unremarkable. No enlarged lymph nodes. Bladder: Unremarkable. Reproductive: Unremarkable. Bones: No acute fracture. Other Findings: Incidental note is made of enlargement of right thyroid lobe with multiple thyroid nodules. There is calcification noted in the left thyroid lobe. Small hiatal hernia is seen. Impression 1. Right lower lobe and lingula pneumonia. 2. Right middle lobe and right lung apex nodules. 3. Enlarged and fatty liver. 4. Evidence of severe enteritis. 5. Small hiatal hernia. 6. Enlarged right thyroid lobe with multiple thyroid nodules and left thyroid lobe calcification. 0100 Patient eating Calix's at this time and tolerating PO intake. No additional complaints. 0245 Repeat HR: 89 Repeat BP: 132/88 On re-evaluation, patient reports improvement of symptoms On exam, patient now AAOx3, in no acute distress. Lungs clear to auscultation, cardiac RRR, abdomen soft, non-tender, repeat neuro exam shows no focal findings. Gait steady without assistance. VSS, stable for discharge. Lab/Diagnostic results d/w the patient in great detail. Diagnosis of orchitis, pneumonia, alcohol abuse d/w the patient. Based on history, exam and diagnostic results, plan will be for outpatient follow up with PMD/urology/GI. Patient was observed in ED for 8+ hours with no evidence of neurological or clinical deterioration. Patient instructed to follow-up with pmd / referral provided / the clinic in 1- 2 days without fail. Advised to take medication as prescribed. Return to the emergency room at any time for any new or worsening symptoms. Patient states he fully agrees with and understands discharge instructions. States that he agrees with the plan and disposition. Verbalized and repeated discharge instructions and plan. I have given the patient opportunity to ask any additional questions. Disposition Counseled Patient/Family Regarding: Studies Performed, Diagnosis, Need For Followup, Rx Given - Clinical Impression Clinical Impression: Orchitis of right testicle, Pneumonia, Testicular pain, Alcohol abuse, Elevated LFTs - POA Present On Arrival: None - Disposition Referrals: [facility] [Outside] Alcoholics Anonymous [Outside] Saroj Fischer MD [Staff Provider] - Brian Carmichael MD [Staff Provider] - Disposition: Routine/Home Disposition Time: 02:45 Condition: STABLE Additional Instructions: The emergency medical care you received today was directed towards the acute presenting symptoms. If you were prescribed any medication, please fill it and give as directed. It may take several days for your symptoms to resolve. Return to the Emergency Department at any time if symptoms worsen, do not improve, or if any other problems arise. Please contact your doctor in 2 days for re-evaluation and follow up / or call one of the physicians/clinics you have been referred to that are listed on the Patient Visit Information form that is included in your discharge packet. Bring any paperwork you were given at discharge with you along with any medications to your follow up visit. Our treatment cannot replace ongoing medical care by a primary care provider (PCP) outside of the emergency department. Prescriptions: Doxycycline Monohydrate 100 mg PO BID #20 tablet Ibuprofen [Motrin Tab] 800 mg PO Q8 PRN #21 tab PRN Reason: Pain, Severe (8-10) Instructions: Effects of Alcohol on Your Health, Community-Acquired Pneumonia, Adult (DC), Epididymo-orchitis (ED), Testicle Pain (ED), Alcohol Abuse and Alcoholism (DC), Liver Function Test Forms: [employer] (Faroese) Print Language: LAO Results - Lab Results Lab Results: 05/17/18 05/17/18 05/17/18 22:17 19:49 19:49 WBC 5.9 RBC 4.31 L Hgb 14.4 Hct 40.1 MCV 93.0 MCH 33.3 H MCHC 35.8 RDW 15.6 H Plt Count 119 L D MPV 7.8 Neut % (Auto) 51.3 Lymph % (Auto) 34.0 [place] % (Auto) 13.9 H Eos % (Auto) 0.4 Baso % (Auto) 0.4 Neut # (Auto) 3.0 Lymph # (Auto) 2.0 [place] # (Auto) 0.8 Eos # (Auto) 0.0 Baso # (Auto) 0.0 PT 11.7 INR 1.0 APTT 31.7 Sodium Potassium Chloride Carbon Dioxide Anion Gap BUN Creatinine Est GFR ( Amer) Est GFR (Non-Af Amer) POC Glucose (mg/dL) Random Glucose Calcium Total Bilirubin AST ALT Alkaline Phosphatase Total Protein Albumin Globulin Albumin/Globulin Ratio Lipase Urine Color Yellow Urine Clarity Clear Urine pH 7.0 Ur Specific [place] 1.008 Urine Protein 30 Urine Glucose (UA) Neg Urine Ketones Negative Urine Blood Negative Urine Nitrate Negative Urine Bilirubin Negative Urine Urobilinogen 0.2-1.0 Ur Leukocyte Esterase Neg Urine RBC (Auto) 1 Urine Microscopic WBC < 1 Alcohol, Quantitative Blood Type Antibody Screen BBK History Checked 05/17/18 05/17/18 05/17/18 19:49 19:49 18:31 WBC RBC Hgb Hct MCV MCH MCHC RDW Plt Count MPV Neut % (Auto) Lymph % (Auto) [place] % (Auto) Eos % (Auto) Baso % (Auto) Neut # (Auto) Lymph # (Auto) [place] # (Auto) Eos # (Auto) Baso # (Auto) PT INR APTT Sodium 136 Potassium 3.4 L Chloride 91 L Carbon Dioxide 21 L Anion Gap 27 H BUN 3 L Creatinine 0.6 L Est GFR ( Amer) > 60 Est GFR (Non-Af Amer) > 60 POC Glucose (mg/dL) 138 H Random Glucose 132 H Calcium 9.7 Total Bilirubin 2.3 H AST 189 H ALT 113 H D Alkaline Phosphatase 232 H Total Protein 8.4 H Albumin 4.4 Globulin 4.0 H Albumin/Globulin Ratio 1.1 Lipase 476 H Urine Color Urine Clarity Urine pH Ur Specific [place] Urine Protein Urine Glucose (UA) Urine Ketones Urine Blood Urine Nitrate Urine Bilirubin Urine Urobilinogen Ur Leukocyte Esterase Urine RBC (Auto) Urine Microscopic WBC Alcohol, Quantitative 377 H* Blood Type B POSITIVE Antibody Screen Negative BBK History Checked No verified bt
[2018-05-17 22:28] LABS: URINE BILIRUBIN NEGATIVE (NEGATIVE); URINE BLOOD NEGATIVE (NEGATIVE); URINE CLARITY CLEAR (Clear); URINE COLOR YELLOW (YELLOW); URINE GLUCOSE (UA) NEG (Normal); URINE LEUKOCYTE ESTERASE NEG Leu/uL (Negative); URINE PROTEIN 30 mg/dL (NEGATIVE); URINE UROBILINOGEN 0.2-1.0 mg/dL (0.2-1.0)
[2018-05-17] MEDS ORDERED: Iohexol 300 100 ML IJ ONE (22:32)
[2018-05-17] MEDS ORDERED: Sodium Chloride 0.9% 50 ML IV ONE (22:32)
[2018-05-18 01:12] VITALS: BP 132/88; PULSE 89; RESP 18; TEMP 98.4
[2018-05-18 02:48] VITALS: O2SAT 97
--- NOTE | 2018-05-18 08:47 | CARD ---
APPROVED REPORT Date of service: 05/17/2018 EKG Measurement Heart [id number] <Conclusion> Sinus tachycardia Otherwise normal ECG
--- NOTE | 2018-05-18 10:08 | CT ---
Date of service: 05/17/2018 PROCEDURE: CT HEAD WITHOUT CONTRAST. HISTORY: trauma COMPARISON: None available. TECHNIQUE: Axial computed tomography images were obtained through the head/brain without intravenous contrast. Radiation dose: Total exam DLP = 815.4 mGy-cm. This CT exam was performed using one or more of the following dose reduction techniques: Automated exposure control, adjustment of the mA and/or kV according to patient size, and/or use of iterative reconstruction technique. FINDINGS: HEMORRHAGE: No intracranial hemorrhage. BRAIN: No mass effect or edema. Atrophy out of proportion to the patient's age. VENTRICLES: Unremarkable. No hydrocephalus. CALVARIUM: Unremarkable. PARANASAL SINUSES: Unremarkable as visualized. No significant inflammatory changes. MASTOID AIR CELLS: Unremarkable as visualized. No inflammatory changes. OTHER FINDINGS: None. IMPRESSION: Atrophy. No acute hemorrhage.
--- NOTE | 2018-05-18 10:15 | CT ---
Date of service: 05/17/2018 PROCEDURE: CT Chest, Abdomen and Pelvis with intravenous contrast HISTORY: LUQ ecchymosis, trauma COMPARISON: None available. TECHNIQUE: IV dose administered: Radiation dose: Total exam DLP = 1126.36 mGy-cm. This CT exam was performed using one or more of the following dose reduction techniques: Automated exposure control, adjustment of the mA and/or kV according to patient size, and/or use of iterative reconstruction technique. FINDINGS: CT CHEST WITH CONTRAST: LUNGS: 3 millimeter nodule in the right apical segment. Compressive atelectasis at the right base secondary to the elevated right hemidiaphragm with areas of consolidation. Small left upper lobe infiltrate along the posterior segment. Additional juxtapleural nodules in the right middle lobe and right lower lobe measuring up to 4 millimeters. MEDIASTINUM: Unremarkable. Normal caliber aorta and pulmonary arterial trunk. No aortic dissection. Normal size heart. LYMPH NODES: Extensive bilateral hilar and subcarinal lymphadenopathy. PLEURA: Unremarkable. No pneumothorax. No pleural fluid. BONES: Unremarkable. OTHER FINDINGS: Thyroid nodularity. CT ABDOMEN AND PELVIS: LIVER: Severe fatty infiltration of the liver. GALLBLADDER AND BILE DUCTS: Unremarkable. PANCREAS: Unremarkable. No gross lesion or ductal dilatation. SPLEEN: Unremarkable. ADRENALS: Unremarkable. No mass. KIDNEYS AND URETERS: Unremarkable. No hydronephrosis. No solid mass. VASCULATURE: No aortic atherosclerotic calcification or mural plaque present. Unremarkable. No aortic aneurysm. BOWEL: Extensive thickening of the duodenum with adjacent fat infiltration. Correlate for duodenitis. Recommend correlation with endoscopy. APPENDIX: Normal appendix. PERITONEUM: Perisplenic fluid. LYMPH NODES: Unremarkable. No enlarged lymph nodes. BLADDER: Unremarkable. REPRODUCTIVE: Unremarkable. BONES: No acute fracture. OTHER FINDINGS: None. IMPRESSION: Scattered right lung nodules. Subcarinal bilateral hilar lymphadenopathy. Correlate clinically for underlying malignancy. Severe fatty infiltration of the liver. Severe wall thickening involving the duodenum possibly representing a duodenitis; correlate with endoscopy. Perisplenic fluid. Fluid in the colon with mild dilatation.
--- NOTE | 2018-05-18 10:43 | RAD ---
Date of service: 05/17/2018 HISTORY: trauma COMPARISON: No prior. FINDINGS: LUNGS: No active pulmonary disease. PLEURA: No significant pleural effusion identified, no pneumothorax apparent. CARDIOVASCULAR: No aortic atherosclerotic calcification present. Normal cardiac size. No pulmonary vascular congestion. OSSEOUS STRUCTURES: No significant abnormalities. VISUALIZED UPPER ABDOMEN: Normal. OTHER FINDINGS: Elevated right hemidiaphragm. IMPRESSION: No active disease.
--- NOTE | 2018-05-20 14:12 | US ---
Date of service: 05/17/2018 HISTORY: R sided testicular pain TECHNIQUE: Realtime sonography through the scrotum with color and doppler flow. COMPARISON: None Available. FINDINGS: RIGHT TESTICLE: Measures 5.7 x 2.1 x 3.4 cm. Normal echotexture and flow. There is hyperemia and increased vascularity noted in the right testicle. Small cyst seen at the peripheral portion of the right testicle measures 0.24 x 0.2 x 0.3 centimeter. RIGHT EPIDIDYMIS: Epididymal head measures 1.1 x 1 x 1.2 cm. Grossly unremarkable appearance with normal flow. LEFT TESTICLE: Measures 5.4 x 2.4 x 3.3 cm. Normal echotexture and flow. LEFT EPIDIDYMIS: Epididymal head measures 1 x 0.4 x 0.6 cm. Grossly unremarkable appearance with normal flow. HYDROCELE: None. VARICOCELE: None. OTHER FINDINGS: None. IMPRESSION: No evidence of testicular torsion. Hyperemia and increased vascularity noted in the right testicles suggestive of right orchitis. Small cyst in the right testicle. Preliminary report contains concordant findings was submitted to the referring [facility] radiology
== END 2018-05-18 02:10 | disposition home or self-care (01) ==
LOC: H.ER 18:09
DX: N45.2 Orchitis (principal); R94.5 Abnormal results of liver function studies; N50.819 Testicular pain, unspecified; J18.9 Pneumonia, unspecified organism; F10.10 Alcohol abuse, uncomplicated
CPT/HCPCS: 70450; 71045; 71260; 74177; 80053; 80320; 81003; 82948; 83690; 85025; 85610; 85730; 86850; 86900; 87040; 87086; 93005; 93975; 96374; 96375; 99284; J1885; J2270; J2405; J7030; Q9967